=== PATIENT | male | born 1985 | race Two or more races ===

== ENCOUNTER → 2020-03-16 08:47 | Outpatient (BNVA) | payer OTHER, SELFPAY | PROVIDERS: PCP Nurse Practitioner Family; Visit Provider Urology | DX: F41.8 Other specified anxiety disorders (principal); Z30.09 Encounter for other general counseling and advice on contraception | CPT/HCPCS: 99202 ==

== ENCOUNTER → 2020-04-29 10:46 | Outpatient (BNVA) | payer OTHER, SELFPAY | PROVIDERS: PCP Nurse Practitioner Family; Visit Provider Urology | DX: F41.8 Other specified anxiety disorders (principal) | CPT/HCPCS: 55250 ==

== ENCOUNTER → 2020-07-26 08:45 | Outpatient (BNVA) | payer OTHER, SELFPAY | PROVIDERS: PCP Nurse Practitioner Family; Visit Provider Urology | DX: F41.8 Other specified anxiety disorders (principal) | CPT/HCPCS: 99212 ==

== ENCOUNTER 2023-11-29 09:33 | Outpatient (AMB) | payer SELFPAY ==
--- NOTE | 2023-11-29 09:54 | MHC.OFFWIV ---
Intake Vital Signs 11/29/23 09:55 Height 5 ft 5 in Weight 169 lb BMI 28.1 BP 128/80 Blood Pressure Location Lt brachial Position Sitting Pulse 97 Pulse Source Pulse Oximeter Temp 97.7 F Temp Source Oral Pulse Oximetry (%) 97 Oxygen Delivery Method Room Air Intake Visit Reasons: EP Asthma, SOB and Chest tightness Intake Note: Patient here for cough, SOB, chest tightness and nasal congestion which has been present for about 2 weeks. Pt states he has a hx of asthma and was put on allergy meds, Cough, and prednisone which is not helping. Patient Tobacco Use Status: Current everyday Tobacco user Allergies shellfish derived Allergy (Severe, Verified 11/29/23 09:56) unknown Do you need a note to return to daycare/school/sports/work: Yes HPI HPI Comments History of Present Illness Details Patient is a 38-year-old male with a past medical history of asthma complaining of 2 weeks of shortness of breath, dry cough, chest tightness, sinus pain and nasal congestion. He tells me he went to an emergency department on Saturday because he was very short of breath, they gave him a prednisone taper which she has been taking and does not seem to be helping. They also gave him some pseudoephedrine which he has been taking and also does not seem to be helping. He tells me he has an albuterol inhaler and nebulizer solution that he has been using, last time he used the nebulizer was yesterday. He denies any fevers, headaches or ear pain. [facility] Medical History Back muscle spasm Depression with anxiety GERD (gastroesophageal reflux disease) Surgical History History of mandibular surgery Hx of tonsillectomy Family History (Updated 09/06/21 @ 11:25 by Betty Hahn [facility]) Father Heart attack Mother Lung disease Maternal Grandmother Diabetes History of multiple strokes Social History Housing: Condominium Alcohol intake: current Patient Tobacco Use Status: Current everyday Tobacco user Cigarettes Per Day: 4 e-Cigarette/Vaping Use: Never Used Second Hand Smoke Exposure: No service: No Current occupational status: employed Current occupation: [employer] Current occupational exposures/hazards: Yes Cognitive needs: No Hearing needs: No Vision needs: No Review of Systems Const All systems reviewed & are unremarkable except as noted in HPI and below Physical Exam Vital Signs: Last Vital Signs Temp 97.7 F 11/29/23 09:55 Pulse 97 11/29/23 09:55 BP 128/80 11/29/23 09:55 Pulse Ox 97 11/29/23 09:55 Oxygen Delivery Method Room Air 11/29/23 09:55 BMI result Body Mass Index 28.1 Const General: cooperative, healthy appearing, comfortable and no acute distress Orientation/consciousness: patient oriented x3 Limitations: no limitations HEENT Head: Yes normal to inspection Ears: hearing grossly normal bilaterally, external ears normal and TM's normal bilaterally General nose exam: Normal external nose present, Normal nares present and No nasal discharge present Face and sinus: Yes normal facial exam and Yes sinus tenderness (maxillary bilateral) Mouth: Normal oral and palatal mucosa present and moist mucous membranes Throat: Yes tonsils normal, Yes uvula midline and Yes posterior oropharynx abnormal (Erythema) Eyes General: appearance normal, both eyes and all related structures Neck Neck: Yes normal visual inspection Resp Effort & Inspection: normal respiratory effort, able to speak in complete sentences, Actively coughing Quality: dry, no respiratory distress, not tachypneic, no tripod positioning and no use of accessory muscles Auscultation: clear to auscultation bilaterally and diminished lung sounds (Slightly dim) bilateral throughout Cardio Rate: regular rate Rhythm: regular rhythm Heart sounds: normal S1 and S2 Skin General skin exam: no rashes or lesions noted Neuro General: patient oriented x3 Extrem General: Yes normal to inspection and Yes no clubbing, cyanosis or edema Assessment & Plan Assessment & Plan (1) Shortness of breath: Code(s): R06.02 - Shortness of breath Plan: Vital signs are stable, patient is well-appearing but a little bit short of breath when he speaks, lungs are a little bit dim so I will get a chest x-ray. We also did give a DuoNeb nebulizer treatment in the office which brought him relief so I will send some to his pharmacy. Will also give Augmentin as it has been 2 weeks and this could be bacterial. Plan see above Orders: Orders AMB Nebulizer Treatment Today R06.02 - Shortness of breath XR chest 2V Today R05.9 - Cough, unspecified Medications: New amoxicillin-pot clavulanate 875-125 mg 1 tab PO Q12H 10 tabs 0RF ipratropium-albuterol 0.5 mg-3 mg(2.5 mg base)/3 mL 3 mL inhalation Q6-8H PRN 90 mL 0RF wheezing ipratropium-albuterol 0.5 mg-3 mg(2.5 mg base)/3 mL 3 mL inhalation ONCE 3 mL 0RF shortness of breath R06.02 - Shortness of breath Coding Level of Care Code Est Pt Level 4 (41957) Diagnoses Shortness of breath R06.02
[2023-11-29 09:55] VITALS: BP 128/80; PULSE 97; TEMP 36.5; O2SAT 97; BMI 28.1
== END 2023-11-29 11:02 | disposition home or self-care (01) ==
PROVIDERS: PCP Nurse Practitioner Family; Visit Provider Physician Assistant
DX: R06.02 Shortness of breath (principal)

== ENCOUNTER → 2023-11-29 09:33 | Outpatient (BNVA) | payer OTHER, SELFPAY | PROVIDERS: PCP Nurse Practitioner Family ==

== ENCOUNTER 2023-11-29 10:31 | Outpatient (REF) | payer MEDICAID, SELFPAY ==
--- NOTE | ~2023-11-29 | XR_ITS ---
EXAMINATION: XR CHEST CLINICAL INFORMATION: Cough, unspecified COMPARISON: None available. TECHNIQUE: PA and lateral views of the chest were obtained. FINDINGS: The lungs are well expanded. No focal consolidation, effusion, edema, or pneumothorax. The cardiomediastinal silhouette is within normal limits for technique. No acute osseous abnormality. XR/XR chest 2V IMPRESSION: No evidence of acute pulmonary disease. Electronically signed by: Audra Bundy DO 11/29/2023 11:35 AM EDT
== END 2023-11-29 10:32 | disposition home or self-care (01) ==
LOC: HO.HMGCX 10:31
PROVIDERS: PCP Nurse Practitioner Family; Visit Provider Physician Assistant
DX: R05.9 Cough, unspecified (principal)
CPT/HCPCS: 71046; 94640; 99212

== ENCOUNTER 2023-12-04 12:55 | Outpatient (AMB) | payer OTHER, SELFPAY ==
--- NOTE | 2023-12-04 12:57 | A.OFFPC_ITS ---
Vital Signs 12/04/23 12:58 Height 5 ft 5 in Weight 167 lb BMI 27.8 BP 104/70 Blood Pressure Location Lt brachial Position Sitting Pulse 90 Pulse Source Pulse Oximeter Pulse Oximetry (%) 96 Oxygen Delivery Method Room Air Intake Visit Reasons: Annual PE/last seen 2021/FMLA Intake Note: Pt is here today for his PE/ FMLA paperwork Allergies shellfish derived Allergy (Severe, Verified 12/04/23 17:04) unknown peas Adverse Reaction (Uncoded 12/04/23 17:04) Anaphylaxis Medication List - Last Reconciled 12/04/23 by Deep Hebert, [facility] albuterol sulfate 2.5 mg (3 mL) inhalation Q6H PRN albuterol sulfate 90 mcg/actuation 2 puffs inhalation Q6H PRN 30 days albuterol sulfate 90 mcg/actuation (Ventolin HFA) 2 puffs inhalation Q6H PRN amitriptyline 10 mg PO BEDTIME 30 days budesonide-formoterol 160-4.5 mcg/actuation (Symbicort) 1 puff inhalation BID ipratropium-albuterol 0.5 mg-3 mg(2.5 mg base)/3 mL 3 mL inhalation Q6-8H PRN montelukast 10 mg PO BEDTIME nebulizer accessories As directed nebulizers q6 hrs prn omeprazole 20 mg PO DAILY Tobacco use date assessed: 12/04/23 Dental Screening Dental Screen Date: 12/04/23 Did you have a dental visit in the last 12 months?: No Did you have a dental problem in the last 6 months where you did not have access to dental care?: No Was dental information given to patient?: No HPI Annual PE/last seen 2021/FMLA HPI Details Pt is here for a PE. Will order labs. Pt has a hx of asthma. He reports waking up very short of breath with a cough. Pt uses a nebulizer which helps. He is using albuterol prn. Will order PFT testing. Will send symbicort. Pt knows to rinse his mouth out after use. Will also start montelukast. Will refer to pulmonology. Pt wakes up at night gasping for air. ? sleep apnea vs asthma trigger related to GERD. Will send omeprazole, Will refer for sleep study. [place] paperwork filled out for pt. Pt knows to go to the ER with any worsening symptoms. NOTE: pt does smoke cigarettes [facility] Medical History Depression with anxiety GERD (gastroesophageal reflux disease) Back muscle spasm Surgical History History of mandibular surgery Hx of tonsillectomy Family History Father Heart attack Mother Lung disease Maternal Grandmother Diabetes History of multiple strokes Social History Housing: Condominium Alcohol intake: current Patient Tobacco Use Status: Current everyday Tobacco user Cigarettes Per Day: 4 e-Cigarette/Vaping Use: Never Used Second Hand Smoke Exposure: No service: No Current occupational status: employed Current occupation: [employer] Current occupational exposures/hazards: Yes Cognitive needs: No Hearing needs: No Vision needs: No Questionnaire PHQ-9 Over the last 2 weeks, how often have you been bothered by any of the following problems? 1. Little interest or pleasure in doing things: not at all 2. Feeling down, depressed, or hopeless: not at all 3. Trouble falling or staying asleep, or sleeping too much: nearly every day 4. Feeling tired or having little energy: not at all 5. Poor appetite or overeating: more than half the days 6. Feeling bad about yourself - or that you are a failure or have let yourself or your family down: not at all 7. Trouble concentrating on things, such as reading the newspaper or watching television: not at all 8. Moving or speaking so slowly that other people could have noticed. Or the opposite - being so fidgety or restless that you have been moving around a lot more than usual: not at all 9. Thoughts that you would be better off or of hurting yourself in some way: not at all Total score: 5 Depression Screening Interpretation: Negative Depression Screening Done: Yes 65725 - PHQ-9 Billing: Yes Source: Developed by Drs. Matt Cook, Pema B.Rory Cohn and colleagues, with an educational yvette from [employer]. Thrive Questionnaire Date Thrive assessed: 12/04/23 I am a: Patient What is your living situation today?: I have a steady place to live Within the past 12 months, did the food you bought not last and you didn't have the money to get more?: Sometimes True Within the past 12 months, did you worry whether your food would run out before you got money to buy more?: Sometimes True Do you have trouble paying for medicines?: Yes Do you have trouble getting transportation to medical appointments?: No Do you have trouble paying your heating and electricity bill?: Yes Do you have trouble taking care of your child, family member or friend?: No Do you have trouble with day-to-day activities such as bathing, preparing meals, shopping, managing finances, etc.?: No Are you interested in more education?: Yes Please select the resources that you would like help with: Food, Utilities, Job search/training and Education Currently or been in a relationship where the following occur: No concerns reported THRIVE Score: 3 AUDIT C Alcohol Use Questionnaire (AUDIT-C) 1. How often do you have a drink containing alcohol?: 2-3 times a week 2. How many drinks containing alcohol do you have on a typical day when you are drinking?: 5 or 6 3. How often do you have six or more drinks on one occasion?: Weekly Total Score: 8 Score Reviewed/Action Taken: Yes MEGAN-7 AMB Questionnaire MEGAN-7 Date MEGAN - 7 assessed: 12/04/23 Feeling nervous, anxious, or on edge: 0 = Not at all Not being able to stop or control worryin = Not at all Worrying too much about different things: 0 = Not at all Trouble relaxin = Not at all Being so restless that it is hard to sit still: 0 = Not at all Becoming easily annoyed or irritable: 0 = Not at all Feeling afraid as if something awful might happen: 0 = Not at all Total MEGAN-7 score (0-4 normal; 5-9 mild; 10-14 moderate; 15-21 severe): 0 Source: Developed by Drs. Matt Cook, Rory Harris and colleagues, with an educational yvette from [employer]. Review of Systems Const Denies chills and Denies fever(s) Eyes Denies blurry vision ENT Denies vertigo, Denies dizziness and Denies sore throat Card Denies chest pain at rest, Denies chest pain with activity, Denies diaphoresis, Denies dyspnea and Denies dyspnea on exertion Resp Denies cough, Denies dyspnea, Denies dyspnea on exertion and Denies wheezing GI Denies abdominal pain, Denies melena, Denies hematochezia, Denies constipation, Denies diarrhea and Denies loose stools Denies hematuria Musc Denies numbness and Denies tingling Skin/Breast Denies lesions Neuro Denies vertigo, Denies dizziness, Denies numbness and Denies tingling Psych Denies anxiety, Denies depression, Denies homicidal ideation, Denies suicidal ideation and Denies other (substance abuse) Aller/Immun Denies wheezing Physical exam (Primary Care) Vital Signs: Last Vital Signs Pulse 90 12/04/23 12:58 BP 104/70 12/04/23 12:58 Pulse Ox 96 12/04/23 12:58 Oxygen Delivery Method Room Air 12/04/23 12:58 BMI result Body Mass Index 27.8 Tobacco/Smoking Status: Tobacco use Status Tobacco use date assessed 12/04/23 12/04/23 13:04 Patient Tobacco Use Status Current everyday Tobacco 12/04/23 13:00 e-Cigarette/Vaping Use Never Used 12/04/23 13:00 PHQ-9: PHQ-9 Score PHQ-9: Total score 5 12/04/23 13:24 Depression Screening Interpretation: Negative Thrive Assessment: Date of Thrive Assessment Date Thrive assessed 12/04/23 12/04/23 13:04 Currently or been in a relationship where the following occur: No concerns reported Const Other: communicating without difficulty General: cooperative Nutritional Appearance: well nourished Orientation/consciousness: patient oriented x3 HENMT Head: Yes normal to inspection, Yes normocephalic and Yes atraumatic Ears: TM's normal bilaterally Eyes General: appearance normal, both eyes and all related structures Alignment and Position: alignment normal and position normal Neck Neck: Yes normal visual inspection, Yes no lymphadenopathy and Yes supple Resp Other: lungs diminished bilat, faint tight wheezes Effort & Inspection: normal respiratory effort and Actively coughing Cardio Rate: regular rate Rhythm: regular rhythm Heart sounds: S1 normal heart sound present, S2 normal heart sound present and no murmurs GI Palpation (GI): Soft to palpation and nontender Auscultation: normal bowel sounds Male General Exam: Yes normal external exam Penis: normal penis Scrotum: scrotum normal, testes descended bilaterally and no inguinal hernias Testes: no testicular mass Skin Rashes: no rashes Neuro General: patient oriented x3, moves all extremities, no focal motor deficits and deep tendon reflexes 2+ bilaterally Romberg Test: Negative Extrem Right lower extremity: no edema Left lower extremity: no edema Psych Appearance: grossly normal Mental Status: mental status grossly normal Speech and movement: Normal speech and movement present Affect: normal affect Attitude: cooperative Thought process: Normal thought process present Thought content: Normal thought content present Insight: Good insight present (Psych) Judgement: Good judgement present (Psych) Coding Level of Care Code Est Pt Prev Care 18-39y(62907) Diagnoses History of asthma Z87.09 Shortness of breath R06.02 Assessment & Plan Assessment & Plan (1) History of asthma: Code(s): Z87.09 - Personal history of other diseases of the respiratory system Category: Medical Plan: PFT testing ordered, sending symbicort and montelukast, referred to pulmonology (2) Shortness of breath: Code(s): R06.02 - Shortness of breath Category: Medical Plan: PFT testing ordered, sending symbicort and montelukast, referred to pulmonology, referred for sleep study, pt knows to go to the ER wit worsening symptoms Plan The patient agreed to the use of a medical laboratory technician for this encounter. Scribed for ZIA Del Cid by Shayla Cleveland medical laboratory technician, on 12/04/2023 at 13:20 EST. Orders: Orders PFT pulmonary function test Today Z87.09 - Personal history of other diseases of the respiratory system Referrals Pulmonology Referral R06.02 - Shortness of breath, Z87.09 - Personal history of other diseases of the respiratory system Sleep Medicine Referral R06.02 - Shortness of breath, Z87.09 - Personal history of other diseases of the respiratory system Medications: New montelukast 10 mg PO BEDTIME 90 tabs 0RF prednisone 50 mg PO DAILY 6 days 6 tabs 0RF budesonide-formoterol 160-4.5 mcg/actuation (Symbicort) 1 puff inhalation BID 10.2 grams 2RF Refilled omeprazole 20 mg PO DAILY 90 caps 0RF K21.9 - Gastro-esophageal reflux disease without esophagitis
[2023-12-04 12:58] VITALS: BP 104/70; PULSE 90; O2SAT 96; BMI 27.8
== END 2023-12-04 14:36 | disposition home or self-care (01) ==
PROVIDERS: PCP Nurse Practitioner Family; Visit Provider Nurse Practitioner Family
DX: Z00.00 Encounter for general adult medical examination without abnormal findings (principal); Z87.09 Personal history of other diseases of the respiratory system; R06.02 Shortness of breath

== ENCOUNTER → 2023-12-04 12:55 | Outpatient (BNVA) | payer OTHER, SELFPAY | PROVIDERS: PCP Nurse Practitioner Family; Visit Provider Nurse Practitioner Family | DX: Z00.01 Encounter for general adult medical examination with abnormal findings (principal); R06.02 Shortness of breath; K21.9 Gastro-esophageal reflux disease without esophagitis; Z79.899 Other long term (current) drug therapy; Z79.52 Long term (current) use of systemic steroids; Z87.09 Personal history of other diseases of the respiratory system | CPT/HCPCS: 96127; 99395 ==

== ENCOUNTER 2023-12-27 10:47 | Outpatient (AMB) | payer OTHER, SELFPAY ==
--- NOTE | 2023-12-27 10:59 | AM.OFFWIN_ITS ---
Intake Vital Signs 12/27/23 11:00 Weight 166 lb BP 140/100 H Pulse 100 Pulse Source Pulse Oximeter Pulse Oximetry (%) 98 Oxygen Delivery Method Room Air Intake Visit Reasons: EP-chest pain, sob, Intake Note: Patient here for very bad chest pain since this morning, hurts when he brings his arms up, takes a deep breathe Patient Tobacco Use Status: Current everyday Tobacco user Allergies shellfish derived Allergy (Severe, Verified 12/27/23 11:02) unknown peas Adverse Reaction (Uncoded 12/27/23 11:02) Anaphylaxis Do you need a note to return to daycare/school/sports/work: Yes HPI HPI Comments History of Present Illness Details Patient is a 38-year-old male who tells me he woke up at 03:00 o'clock in the morning with sudden onset of central chest pain that radiates to his back and to both shoulders. He states this pain is worse with movement. He denies any episodes of sweating or nausea or vomiting. He said he has gets dizzy every now and then. He tells me if he pushes on his chest it does not reproduce the pain. He tells me this has never happened to him before. [facility] Medical History Depression with anxiety GERD (gastroesophageal reflux disease) Back muscle spasm Surgical History History of mandibular surgery Hx of tonsillectomy Family History Father Heart attack Mother Lung disease Maternal Grandmother Diabetes History of multiple strokes Social History Housing: Condominium Alcohol intake: current Patient Tobacco Use Status: Current everyday Tobacco user Cigarettes Per Day: 4 e-Cigarette/Vaping Use: Never Used Second Hand Smoke Exposure: No service: No Current occupational status: employed Current occupation: [employer] Current occupational exposures/hazards: Yes Cognitive needs: No Hearing needs: No Vision needs: No Review of Systems Const All systems reviewed & are unremarkable except as noted in HPI and below Physical Exam Vital Signs: Last Vital Signs Pulse 100 12/27/23 11:00 BP 140/100 H 12/27/23 11:00 Pulse Ox 98 12/27/23 11:00 Oxygen Delivery Method Room Air 12/27/23 11:00 Const General: cooperative, healthy appearing, comfortable, no acute distress and well developed Orientation/consciousness: patient oriented x3 Limitations: no limitations HEENT Head: Yes normal to inspection Ears: hearing grossly normal bilaterally General nose exam: Normal external nose present Face and sinus: Yes normal facial exam Eyes General: appearance normal, both eyes and all related structures Neck Neck: Yes normal visual inspection and Yes full ROM Resp Effort & Inspection: abnormal respiratory pattern (splinting ) and respiratory distress (mild) Auscultation: clear to auscultation bilaterally and diminished lung sounds Cardio Rate: regular rate Rhythm: regular rhythm Heart sounds: normal S1 and S2 Skin General skin exam: no rashes or lesions noted Neuro General: patient oriented x3 Extrem General: Yes normal to inspection Office Procedures EKG Details: NSR , no acute ST or T-wave changes [id number], Complete Assessment & Plan Assessment & Plan (1) Chest pain: Code(s): R07.9 - Chest pain, unspecified Qualifiers: Chest pain type: chest pain on breathing Qualified Code(s): R07.1 - Chest pain on breathing Plan: EKG is normal sinus rhythm with no acute ST or T-wave changes. We did get a chest x-ray which my read showed no pneumothorax or consolidation. Patient is splinting his breathing and visibly short of breath. Sent to the emergency department, patient is opting to go to [facility] in [place]. Called [facility] with expect. (2) Shortness of breath: Code(s): R06.02 - Shortness of breath Plan: see above Plan see above Orders: Orders XR chest 2V Today R05.9 - Cough, unspecified Coding Level of Care Code Est Pt Level 5 (98224) Diagnoses Chest pain on breathing R07.1 Chest pain type: chest pain on breathing Shortness of breath R06.02 CPT Codes EKG - CPT: 36780-[id number], Complete ([id number])
[2023-12-27 11:00] VITALS: BP 140/100; PULSE 100; O2SAT 98
== END 2023-12-27 11:56 | disposition home or self-care (01) ==
PROVIDERS: PCP Nurse Practitioner Family; Visit Provider Physician Assistant
DX: R07.1 Chest pain on breathing (principal); R06.02 Shortness of breath

== ENCOUNTER 2023-12-27 10:47 | Outpatient (REF) | payer OTHER, SELFPAY ==
--- NOTE | ~2023-12-27 | XR_ITS ---
EXAMINATION: XR CHEST CLINICAL INFORMATION: Cough. COMPARISON: Chest radiograph dated 11/29/2023. TECHNIQUE: 2 views of the chest were obtained. FINDINGS: The lungs are clear. The cardiomediastinal silhouette is normal in size. There is no pleural effusion or pneumothorax. No acute osseous abnormality. XR/XR chest 2V IMPRESSION: No acute cardiopulmonary findings. Electronically signed by: Marek Davis MD 12/27/2023 03:48 PM EDT
== END 2023-12-27 10:48 | disposition home or self-care (01) ==
LOC: HO.HMGCX 10:47
PROVIDERS: PCP Nurse Practitioner Family; Visit Provider Physician Assistant
DX: R07.1 Chest pain on breathing (principal); R06.02 Shortness of breath; R05.9 Cough, unspecified; F17.210 Nicotine dependence, cigarettes, uncomplicated
CPT/HCPCS: 71046; 93005; 99212

== ENCOUNTER 2024-01-13 13:07 | Outpatient (AMB) | payer OTHER, SELFPAY ==
--- NOTE | 2024-01-13 14:23 | MHC.OFFWIV ---
Intake Vital Signs 01/13/24 14:28 Weight 166 lb BP 132/80 Blood Pressure Location Lt brachial Position Sitting Pulse 97 Pulse Source Pulse Oximeter Pulse Oximetry (%) 96 Oxygen Delivery Method Room Air Intake Visit Reasons: EP cough, asthma [phone] Intake Note: Patient here for cough that has been present for about 3 weeks now. Patient Tobacco Use Status: Current everyday Tobacco user Allergies shellfish derived Allergy (Severe, Verified 01/13/24 14:26) unknown peas Adverse Reaction (Uncoded 01/13/24 14:26) Anaphylaxis Do you need a note to return to daycare/school/sports/work: No HPI HPI Comments History of Present Illness Details Patient is a 38-year-old male complaining of 3 weeks of a persistent dry cough. He came to this clinic 3 weeks ago and was sent to the emergency department where they diagnosed him with pericarditis, he states he was given colchicine prednisone and Tessalon Perles. He states all the medications worked very well while he was taking them however, as soon as he went off medications, his cough came back and has been persistent ever since. He states he does take his Symbicort twice daily and he is using his DuoNeb nebulizer once he gets home from work, consistently as well as his albuterol inhaler. He states he is using the albuterol inhaler and the DuoNebs more frequently than typical. He tells me he is still smoking cigarettes. He denies any head congestion, sinus pain, ear pain or fevers. [facility] Medical History Depression with anxiety GERD (gastroesophageal reflux disease) Back muscle spasm Surgical History History of mandibular surgery Hx of tonsillectomy Family History Father Heart attack Mother Lung disease Maternal Grandmother Diabetes History of multiple strokes Social History Housing: Condominium Alcohol intake: current Patient Tobacco Use Status: Current everyday Tobacco user Cigarettes Per Day: 4 e-Cigarette/Vaping Use: Never Used Second Hand Smoke Exposure: No service: No Current occupational status: employed Current occupation: [employer] Current occupational exposures/hazards: Yes Cognitive needs: No Hearing needs: No Vision needs: No Review of Systems Const All systems reviewed & are unremarkable except as noted in HPI and below Physical Exam Vital Signs: Last Vital Signs Pulse 97 01/13/24 14:28 BP 132/80 01/13/24 14:28 Pulse Ox 96 01/13/24 14:28 Oxygen Delivery Method Room Air 01/13/24 14:28 Const General: cooperative, healthy appearing, comfortable, no acute distress and well developed Orientation/consciousness: patient oriented x3 Limitations: no limitations HEENT Head: Yes normal to inspection Ears: hearing grossly normal bilaterally General nose exam: Normal external nose present Face and sinus: Yes normal facial exam Eyes General: appearance normal, both eyes and all related structures Neck Neck: Yes normal visual inspection and Yes full ROM Resp Effort & Inspection: normal respiratory effort, not able to speak in complete sentences (Speaking in short sentences, coughing consistently), Actively coughing Quality: actively coughing, no grunting, not labored, no nasal flaring, no pursed lip breathing, no respiratory distress, not tachypneic and no tripod positioning Auscultation: wheezes scattered wheezes and throughout and diminished lung sounds diffuse Cardio Rate: regular rate Rhythm: regular rhythm Heart sounds: normal S1 and S2 Skin General skin exam: no rashes or lesions noted Neuro General: patient oriented x3 Extrem General: Yes normal to inspection Assessment & Plan Assessment & Plan (1) Persistent shortness of breath after severe acute respiratory syndrome coronavirus 2 (SARS-CoV-2) infection: Code(s): R06.02 - Shortness of breath; U09.9 - Post COVID-19 condition, unspecified Plan: Called pulmonology, able to get patient scheduled for SaturdayJanuary 16 at 13:30 in the [place] office with the nurse practitioner. Gave the patient this information and he states that he will be at the appointment. In the meanwhile, I will put him on a 10 day prednisone taper (2) Asthma exacerbation: Code(s): J45.901 - Unspecified asthma with (acute) exacerbation Qualifiers: Asthma severity: mild Asthma persistence: persistent Qualified Code(s): J45.31 - Mild persistent asthma with (acute) exacerbation Plan: Vital signs are stable, patient consistently coughing during the exam, his lung sounds were tight and slightly wheezy. Prednisone taper sent to pharmacy Plan See above Medications: New prednisone On days 1-3, take 3 tablets with breakfast. On days 4-6 take 2 tablets with breakfast, on days 7-10 take 1 tablet with breakfast 20 mg PO daily 19 tabs 0RF benzonatate 200 mg PO TID PRN 14 caps 0RF cough Coding Level of Care Code Est Pt Level 4 (46903) Diagnoses Persistent shortness of breath after severe acute respiratory syndrome coronavirus 2 (SARS-CoV-2) infection R06.02; U09.9 Mild persistent asthma with exacerbation J45.31 Asthma severity: mild Asthma persistence: persistent
[2024-01-13 14:28] VITALS: BP 132/80; PULSE 97; O2SAT 96
== END 2024-01-13 14:56 | disposition home or self-care (01) ==
PROVIDERS: PCP Nurse Practitioner Family; Visit Provider Physician Assistant
DX: R06.02 Shortness of breath (principal); U09.9 Post COVID-19 condition, unspecified; J45.31 Mild persistent asthma with (acute) exacerbation

== ENCOUNTER → 2024-01-13 13:07 | Outpatient (BNVA) | payer OTHER, SELFPAY | PROVIDERS: PCP Nurse Practitioner Family; Visit Provider Physician Assistant | DX: R06.02 Shortness of breath (principal); U09.9 Post COVID-19 condition, unspecified; J45.31 Mild persistent asthma with (acute) exacerbation | CPT/HCPCS: 99212 ==

== ENCOUNTER 2024-01-17 | Outpatient (REF) | payer OTHER, SELFPAY | END 2024-01-17 00:01 | disposition home or self-care (01) | LOC: HO.RESP | PROVIDERS: PCP Nurse Practitioner Family; Visit Provider Nurse Practitioner Family | DX: J45.909 Unspecified asthma, uncomplicated (principal); R05.9 Cough, unspecified; Z91.09 Other allergy status, other than to drugs and biological substances | CPT/HCPCS: 94640; 99202 ==

== ENCOUNTER 2024-01-17 13:19 | Outpatient (AMB) | payer OTHER, SELFPAY ==
[2024-01-17 13:20] VITALS: BP 120/84; PULSE 93; O2SAT 97; BMI 28.3
--- NOTE | 2024-01-17 13:20 | MHC.OFFVIS ---
Vital Signs 01/17/24 13:20 Height 5 ft 5 in Weight 170 lb 4 oz BMI 28.3 BP 120/84 Blood Pressure Location Lt brachial Position Sitting Pulse 93 Pulse Source Pulse Oximeter Pulse Oximetry (%) 97 Oxygen Delivery Method Room Air Intake Visit Reasons: Shortness of breath Allergies Peanut Butter Allergy (Severe, Verified 01/17/24 13:26) Swelling shellfish derived Allergy (Severe, Verified 01/17/24 13:25) unknown peas Adverse Reaction (Uncoded 01/17/24 13:25) Anaphylaxis HPI HPI Shortness of breath: Details: Nii is a pleasant 38 year old male, current smoker, with 10pyh with underlying asthma and GERD. He was referred by PCP for pulmonary evaluation. He reports worsening control of asthma since mid October with persistent dry cough, wheezing, dyspnea and chest tightness. He was initially improving after doxycyline and prednisone however symptoms recurred once completing. He is currently on 60 mg of prednisone with persistent cough. Denies fevers or chills. He notes cough is worse with heat and prolonged talking. Symptoms improve with cool air. He was recently prescribed Symbicort and using albuterol MDI frequently. He was evaluated at the ED on two separate occasions, with question of pericarditis due to abnormalities on EKG, discharged with NSAIDS. At this time, CXR revealed perihilar opacities however repeat CXR and CT chest unremarkable. Respiratory panel unremarkable. He endorses seasonal allergies, no recent allergy testing and not using a daily anthistamine. In September he acquired two chickens, which live in his basement. He reports asthma diagnosed as a child, hospitalized on multiple occasions never requiring intubations. He reports reflux however controlled on current regimen. 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 [facility] Medical History Depression with anxiety GERD (gastroesophageal reflux disease) Back muscle spasm Surgical History History of mandibular surgery Hx of tonsillectomy Family History Father Heart attack Mother Lung disease Maternal Grandmother Diabetes History of multiple strokes Social History (Updated 01/17/24 @ 13:24 by Betty Hahn CMA) [facility] Alcohol intake: current Patient Tobacco Use Status: Current everyday Tobacco user Cigarettes Per Day: 7 e-Cigarette/Vaping Use: Never Used Second Hand Smoke Exposure: No service: No Current occupational status: employed Current occupation: [employer] Current occupational exposures/hazards: Yes Cognitive needs: No Hearing needs: No Vision needs: No Review of Systems Const Denies chills, Denies excessive sweating, Denies fever(s), Denies headache(s) and Denies night sweats Eyes Denies dry eyes, Denies irritation and Denies itchy eyes ENT Reports Normal hearing present, Denies headache(s), Denies nasal congestion, Denies nasal discharge, Denies post nasal drip and Denies sore throat Card Denies chest pain, Denies chest pain at rest, Denies chest pain with activity, Denies claudication, Denies leg edema, Denies orthopnea and Denies paroxysmal nocturnal dyspnea Resp Denies chest congestion, Denies excessive phlegm production, Denies pain on inspiration, Denies pain with cough and Denies stridor Musc Denies myalgias Neuro Reports Normal hearing present and Denies headache(s) Endo Denies excessive sweating Tom/Lymph Denies lymphadenopathy Aller/Immun Denies itchy eyes and Denies seasonal rhinorrhea Physical Exam Vital Signs: Last Vital Signs Pulse 93 01/17/24 13:20 BP 120/84 01/17/24 13:20 Pulse Ox 97 01/17/24 13:20 Oxygen Delivery Method Room Air 01/17/24 13:20 BMI result Body Mass Index 28.3 Const General: cooperative, healthy appearing, no acute distress, well developed and alert Orientation/consciousness: patient oriented x3 Limitations: no limitations HEENT Head: Yes normal to inspection, Yes normocephalic and Yes atraumatic Ears: hearing grossly normal bilaterally and external ears normal Eyes General: appearance normal, both eyes and all related structures Eyelids: Yes eyelids normal Sclerae: sclerae normal EOM: EOMs intact bilaterally Neck Neck: Yes normal visual inspection and Yes no lymphadenopathy Lymphatic: no lymphadenopathy noted Chest Chest palpation & inspection: normal inspection of the chest Resp Other: persistent dry cough throughout visit, mildly improved with DuoNeb Effort & Inspection: normal respiratory effort, able to speak in complete sentences, no audible wheezes, no stridor, not tachypneic, no tripod positioning and no use of accessory muscles Auscultation: clear to auscultation bilaterally Cardio Jugular venous distension: no JVD Rate: regular rate Rhythm: regular rhythm Skin Other: warm, dry General skin exam: no rashes or lesions noted Neuro General: patient oriented x3 Cranial nerves: Yes Normal hearing present Cognition (Neuro): normal cognition Gait exam (Neuro): Normal gait present Extrem General: Yes normal to inspection, Yes capillary refill normal, Yes no clubbing, cyanosis or edema and Yes no pedal edema Psych Appearance: grossly normal and well kempt Speech and movement: Normal speech and movement present and Clear speech present Affect: normal affect Attitude: cooperative Thought process: Normal thought process present Thought content: Normal thought content present Insight: Good insight present (Psych) Judgement: Good judgement present (Psych) Office Procedures Nebulizer Treatment Nebulizer Treatment 09817-[id number]/MDI RX initial, or Nebulizer Subsequent Treatment Office Meds ipratropium 0.5 mg-albuterol 3 mg (2.5 mg base)/3 mL nebulization soln Performing Provider: Felicity Carlson NP Performing Location: [facility] [place] [facility] Administered by: Chrissie Nielson LPN on 01/17/24 13:57 Dose Route Admin Location Dispensed Lot Number Expiration Date [facility] [employer] 3 mL inhalation 3 mL [id number] 05/25/25 13298-861-87 [employer] Results Reviewed Results Reviewed: Assessment & Plan Assessment & Plan (1) Asthma: Code(s): J45.909 - Unspecified asthma, uncomplicated Category: Medical (2) Cough: Code(s): R05.9 - Cough, unspecified Category: Medical (3) Environmental allergies: Code(s): Z91.09 - Other allergy status, other than to drugs and biological substances Category: Medical Plan Nii presents for pulmonary evaluation for persistent dry cough and worsening asthma control despite prednisone 60 mg, symbicort and albuterol MDI/neb. Will treat with azithromycin and add singulair as patient with significant eosinophils on prior evaluation through ED. Will send for RAST today and once symptoms are better controlled will send for PFT, as he would not be able to complete at this time. Will also attempt to obtain prior CT chest images. All questions were answered and patient is in agreement of plan. Will follow up in 2-4 weeks or sooner if needed. Orders: Orders AMB Nebulizer Treatment 01/17/24 J45.909 - Unspecified asthma, uncomplicated Hypersensitive Pneumonitis Prf 01/17/24 R05.9 - Cough, unspecified Resp Allergy Profile Region I 01/17/24 Z91.09 - Other allergy status, other than to drugs and biological substances Immunoglobulin E 01/17/24 Z91.09 - Other allergy status, other than to drugs and biological substances Other Ref Test - Misc 01/17/24 Z91.09 - Other allergy status, other than to drugs and biological substances Medications: New montelukast (Singulair) 10 mg PO BEDTIME 30 tabs 3RF azithromycin For 250 mg dose pack: take 500 mg today (day 1), then 250 mg for 4 days (days 2-5) PO 6 tabs 0RF Coding Level of Care Code New Pt Level 4 (90023) Diagnoses Asthma J45.909 Cough R05.9 Environmental allergies Z91.09 CPT Codes Nebulizer Treatment - Nebulizer Treatment, initial or subsequent: [id number]/MDI RX initial, or Nebulizer Subsequent Treatment ([id number])
== END 2024-01-17 14:17 | disposition home or self-care (01) ==
PROVIDERS: PCP Nurse Practitioner Family; Referring Provider Nurse Practitioner Family; Visit Provider Nurse Practitioner Family
DX: J45.909 Unspecified asthma, uncomplicated (principal); R05.9 Cough, unspecified; Z91.09 Other allergy status, other than to drugs and biological substances
CPT/HCPCS: 99204

== ENCOUNTER 2024-01-17 14:23 | Outpatient (REF) | payer OTHER, SELFPAY ==
[2024-01-22 17:32] LABS: Class Alternaria alternata 1; Class Aspergillus fumigatus 0/1; Class Bermuda Grass 3; Class Birch 6; Class Cat Dander 0/1; Class Cladosporium herbarum 0/1; Class Cockroach 3; Class Common Ragweed 6; Class Cottonwood 4; Class Derm. pterony 1; Class Dermatophagoides farinae 1; Class Dog Dander 1; Class Elm 4; Class Maple Box Elder 3; Class Mountain Cedar 3; Class Mouse Urine Protein 0; Class Mugwort 4; Class Oak 6; Class Penicillium crysogenum 0; Class Rough Pigweed 3; Class Sheep Sorrel 3; Class Sycamore 3; Class Timothy Grass 3; Class Walnut Tree 4; Class White Ash 5; Class White Mulberry 0; D002 - IgE D farinae 0.69 kU/L; E005 - IgE Dog Dander 0.53 kU/L; E072-IgE Mouse Urine <0.10 kU/L; G002 IgE Bermuda Grass 3.51 kU/L; G006 - IgE Timothy Grass 5.66 kU/L; I006-IgE Cockroach, German 4.21 kU/L; Immunoglobulin E 2197 kU/L (<OR=114); Immunoglobulin E 2320 kU/L (<OR=114); M001 IgE Penicillium chrysogen <0.10 kU/L; M002 - IgE Cladosporium herbar 0.15 kU/L; M003 - IgE Aspergillus fumigat 0.21 kU/L; M006 - IgE Alternaria alternat 0.47 kU/L; T003 IgE Common Silver Birch >100 kU/L; T006 - IgE Cedar, Mountain 4.78 kU/L; T007 - IgE Oak, White >100 kU/L; T070 - IgE White Mulberry <0.10 kU/L; W001 - IgE Ragweed, Short >100 kU/L; W018 IgE Sheep Sorrel 4.16 kU/L
[2024-01-27 10:28] LABS: Asperg fumigatus Precip Abs NEGATIVE; Micropoly faeni Abs NEGATIVE; Pigeon serum Abs NEGATIVE; Saccharo pora viridis Abs NEGATIVE; Thermo candidus Abs NEGATIVE; Thermoa vulgaris #1 NEGATIVE
== END 2024-01-17 14:24 | disposition home or self-care (01) ==
LOC: HO.WFDLDS 14:23
PROVIDERS: Visit Provider Nurse Practitioner Family
DX: R05.9 Cough, unspecified (principal); Z91.09 Other allergy status, other than to drugs and biological substances
CPT/HCPCS: 36415; 82785; 86003; 86331; 86606; 86609

== ENCOUNTER 2024-02-07 15:27 | Outpatient (AMB) | payer OTHER, SELFPAY ==
--- OUTSIDE RECORDS SUMMARY | 2024-02-07 15:33 | XMS_ITS ---
Author Name [facility] Organization Unknown Results Test Name/Text Value Interpretation Date Range Source Service [facility] XXX-Imp Cepheid GeneXpert (RT-PCR) [facility] Normal [facility] FLUBV RNA Nph Ql MATTIE+non-probe NEGATIVE Normal [facility] RSV RNA Nph Ql MATTIE+non-probe NEGATIVE Normal [facility] FLUAV RNA Nph Ql MATTIE+non-probe NEGATIVE Normal [facility] CREAT SERPL MCNC 1.1mg/dL Normal 0.7 - 1.3 [facility] CALCIUM SERPL MCNC 9.7mg/dL Normal 8.4 - 10.2 [facility] SODIUM SERPL SCNC 136mmol/L Normal 135 - 145 [facility] ANION GAP SERPL SCNC 9mmol/L Normal 5 - 14 [facility] Glomerular filtration rate/1.73 sq M. predicted 89 Normal 60 - [facility] HCO3 SER SCNC 24mmol/L Normal 24 - 32 C[facility] GLUCOSE SERPL MCNC 86mg/dL Normal 70 - 199 [facility] BUN SERPL MCNC 14mg/dL Normal 9 - 20 [facility] CHLORIDE SERPL SCNC 103mmol/L Normal 98 - 107 [facility] POTASSIUM SERPL SCNC 4.1mmol/L Normal 3.5 - 5.1 [facility] PLATELET NO. BLD AUTO 249K/uL Normal 150 - 450 [facility] RBC NO. BLD AUTO 4.84M/uL Normal 4.7 - 6 [facility] NUCLEATED RBC 0% Normal 0 - 1 [facility] LYMPHOCYTES NO. BLD AUTO 2.6K/uL Normal 1 - 3.2 [facility] EOSINOPHIL NO. BLD AUTO 1K/uL Above high normal 0 - 0.5 [facility] MCH RBC QN AUTO 31.6pg Normal 25 - 33 [facility] MCHC RBC AUTO MCNC 34.3g/dL Normal 32 - 36 [facility] MONOCYTES NFR BLD AUTO 5.9% Normal 2 - 12 [facility] IMMATURE GRANULOCYTE, ABSOLUTE 0.02k/uL Normal - 0.1 [facility] LYMPHOCYTES NFR BLD AUTO 25.3% Normal 20 - 48 [facility] EOSINOPHIL NFR BLD AUTO 9.8% Above high normal 0 - 6 [facility] HGB BLD MCNC 15.3g/dL Normal 13.5 - 18 [facility] NEUTROPHILS NO. BLD AUTO 6K/uL Normal 1.8 - 7.8 [facility] WBC NO. BLD AUTO 10.3K/uL Normal 4 - 10.5 [facility] BASOPHILS NFR BLD AUTO 0.8% Normal 0 - 2 [facility] MONOCYTES NO. BLD AUTO 0.6K/uL Normal 0 - 0.8 [facility] MCV RBC AUTO 92.1fL Normal 78 - 100 [facility] NEUTROPHILS NFR BLD AUTO 58% Normal 44 - 74 [facility] IMMATURE GRANULOCYTE, PERCENT 0.2% Normal 0 - 1 [facility] BASOPHILS IN BLOOD BY AUTOMATED COUNT 0.1K/uL Normal 0 - 0.2 [facility] PMV BLD AUTO 9.3fL Normal 7.4 - 11.4 [facility] RDW RBC AUTO RTO 12.7% Normal 12.1 - 17.7 [facility] HCT VFR BLD AUTO 44.6% Normal 40 - 54 [facility] SPECIMEN SOURCE XXX NASOPHARYNGEAL Normal [facility] Service [facility] XXX-Imp Cepheid GeneXpert (RT-PCR) [facility] Normal [id number] [facility] FLUBV RNA Nph Ql MATTIE+non-probe NEGATIVE Normal [id number] [facility] RSV RNA Nph Ql MATTIE+non-probe NEGATIVE Normal [id number] [facility] FLUAV RNA Nph Ql MATTIE+non-probe NEGATIVE Normal [id number] [facility] SPECIMEN SOURCE XXX NASOPHARYNGEAL Normal [id number] [facility] Service [facility] XXX-Imp Cepheid GeneXpert (RT-PCR) [facility] Normal [id number] [facility] FLUBV RNA Nph Ql MATTIE+non-probe NEGATIVE Normal [id number] [facility] RSV RNA Nph Ql MATTIE+non-probe NEGATIVE Normal [id number] [facility] FLUAV RNA Nph Ql MATTIE+non-probe NEGATIVE Normal [id number] [facility] CREAT SERPL MCNC 1mg/dL Normal [id number] 0.7 - 1.3 [facility] CALCIUM SERPL MCNC 9.3mg/dL Normal [id number] 8.4 - 10.2 [facility] SODIUM SERPL SCNC 137mmol/L Normal [id number] 135 - 145 [facility] ANION GAP SERPL SCNC 9mmol/L Normal [id number] 5 - 14 [facility] Glomerular filtration rate/1.73 sq M. predicted 101 Normal [id number] 60 - [facility] HCO3 SER SCNC 25mmol/L Normal [id number] 24 - 32 [facility] GLUCOSE SERPL MCNC 154mg/dL Normal [id number] 70 - 199 [facility] BUN SERPL MCNC 16mg/dL Normal [id number] 9 - 20 [facility] CHLORIDE SERPL SCNC 103mmol/L Normal [id number] 98 - 107 [facility] POTASSIUM SERPL SCNC 3.7mmol/L Normal [id number] 3.5 - 5.1 [facility] PLATELET NO. BLD AUTO 257K/uL Normal [id number] 150 - 450 [facility] RBC NO. BLD AUTO 4.8M/uL Normal [id number] 4.7 - 6 [facility] NUCLEATED RBC 0% Normal [id number] 0 - 1 [facility] LYMPHOCYTES NO. BLD AUTO 2.6K/uL Normal [id number] 1 - 3.2 [facility] EOSINOPHIL NO. BLD AUTO 0.1K/uL Normal [id number] 0 - 0.5 [facility] MCH RBC QN AUTO 31pg Normal [id number] 25 - 33 [facility] MCHC RBC AUTO MCNC 34.5g/dL Normal [id number] 32 - 36 [facility] MONOCYTES NFR BLD AUTO 6.5% Normal [id number] 2 - 12 [facility] IMMATURE GRANULOCYTE, ABSOLUTE 0.03k/uL Normal [id number] - 0.1 [facility] LYMPHOCYTES NFR BLD AUTO 30.3% Normal [id number] 20 - 48 [facility] EOSINOPHIL NFR BLD AUTO 1.5% Normal [id number] 0 - 6 [facility] HGB BLD MCNC 14.9g/dL Normal [id number] 13.5 - 18 [facility]H NEUTROPHILS NO. BLD AUTO 5.2K/uL Normal [id number] 1.8 - 7.8 [facility] WBC NO. BLD AUTO 8.6K/uL Normal [id number] 4 - 10.5 [facility] BASOPHILS NFR BLD AUTO 0.7% Normal [id number] 0 - 2 [facility] MONOCYTES NO. BLD AUTO 0.6K/uL Normal [id number] 0 - 0.8 [facility] MCV RBC AUTO 90fL Normal [id number] 78 - 100 [facility] NEUTROPHILS NFR BLD AUTO 60.7% Normal [id number] 44 - 74 [facility] IMMATURE GRANULOCYTE, PERCENT 0.3% Normal [id number] 0 - 1 [facility] BASOPHILS IN BLOOD BY AUTOMATED COUNT 0.1K/uL Normal [id number] 0 - 0.2 [facility] PMV BLD AUTO 9.4fL Normal [id number] 7.4 - 11.4 [facility] RDW RBC AUTO RTO 12.5% Normal [id number] 12.1 - 17.7 [facility] HCT VFR BLD AUTO 43.2% Normal [id number] 40 - 54 [facility] SPECIMEN SOURCE XXX NASOPHARYNGEAL Normal [id number] [facility] Service [facility] XXX-Imp Cepheid GeneXpert (RT-PCR) [facility] Normal [id number] [facility] FLUBV RNA Nph Ql MATTIE+non-probe NEGATIVE Normal [id number] [facility] RSV RNA Nph Ql MATTIE+non-probe NEGATIVE Normal [id number] [facility] FLUAV RNA Nph Ql MATTIE+non-probe NEGATIVE Normal [id number] [facility] S pyo Ag Throat Ql IA rapid Normal [id number] - [facility] SPECIMEN SOURCE XXX NASOPHARYNGEAL Normal [id number] [facility] History of Medication Use Medication Directions Dispensed Refills Start Date End Date Status ketorolac (TORADOL) injection 15 mg 15 mg, Intravenous, Once, On Sat11/26/23 at 2000, For 1 dose 4 completed benzonatate (Tessalon Perles) 100 MG capsule Take 1 capsule (100 mg total) by mouth 3 (three) times a day as needed for cough. 4 active predniSONE (DELTASONE) tablet 20 mg Take 3 tablets (60 mg total) by mouth daily for 1 day, THEN 2 tablets (40 mg total) daily for 2 days, THEN 1 tablet (20 mg total) daily for 2 days. 4 active methylPREDNISolone sodium succinate (SOLU-Medrol) injection 125 mg 125 mg, Intravenous, Once, On Sat11/26/23 at 1845, For 1 doseAdminister over 2-3 minutes 4 completed albuterol 108 (90 Base) MCG/ACT inhaler Inhale into the lungs every 6 (six) hours as needed for wheezing. 4 active predniSONE (DELTASONE) tablet 60 mg 60 mg, Oral, Once, On Sat05/23/23 at 1145, For 1 dose 4 completed ipratropium-albuterol (DUO-NEB) nebulizer solution 3 mL 3 mL, Nebulization, Once, On Sat05/23/23 at 1030, For 1 dose 4 completed predniSONE (DELTASONE) tablet 10 mg Prednisone 10 mg tablets - Disp. #40 - Si tabs daily x 3 days; 4 tabs daily x 3 days; 2 tabs daily x 3 days; 1 tab daily x 3 days 4 active Problems Problem Status Onset Date Problem Type Date of Resolution Source Asthma exacerbation active EncounterDiagnosisAc t [facility]
--- NOTE | 2024-02-07 15:43 | A.OFFVIS_ITS ---
Vital Signs 02/07/24 15:44 Height 5 ft 5 in Weight 174 lb 8 oz BMI 29.0 BP 130/66 Blood Pressure Location Rt brachial Position Sitting Pulse 97 Pulse Source Pulse Oximeter Pulse Oximetry (%) 99 Oxygen Delivery Method Room Air Intake Visit Reasons: Shortness of breath Allergies Peanut Butter Allergy (Severe, Verified 02/07/24 15:45) Swelling shellfish derived Allergy (Severe, Verified 02/07/24 15:45) unknown peas Adverse Reaction (Uncoded 02/07/24 15:45) Anaphylaxis HPI HPI Shortness of breath: Details: Nii is a pleasant 38 year old male, current smoker, with 10pyh with underlying asthma and GERD. He was initially referred for worsening control of asthma since mid October with persistent dry cough, wheezing, dyspnea and chest tightness. He was initially improving after doxycyline and prednisone however symptoms recurred once completing. At the last visit, he was on 60 mg of prednisone with persistent cough. Denies fevers or chills. He notes cough is worse with heat and prolonged talking. Symptoms improve with cool air. He was recently prescribed Symbicort and using albuterol MDI frequently. At the last visit, he was started on singulair and required additional prednisone, with moderate improvement however once off of prednisone symptoms recurred. He is currently on 30 mg prednisone. He does note that he is only using symbicort in the AM. Today he presents to review RAST testing. He denies any visits to urgent care or hospitalizations since the last visit. [facility] Medical History Depression with anxiety GERD (gastroesophageal reflux disease) Back muscle spasm Surgical History History of mandibular surgery Hx of tonsillectomy Family History Father Heart attack Mother Lung disease Maternal Grandmother Diabetes History of multiple strokes Social History (Updated 02/07/24 @ 15:45 by Betty Hahn [facility]) [facility] Alcohol intake: current Patient Tobacco Use Status: Current everyday Tobacco user Cigarettes Per Day: 2 e-Cigarette/Vaping Use: Never Used Second Hand Smoke Exposure: No service: No Current occupational status: employed Current occupation: [employer] Current occupational exposures/hazards: Yes Cognitive needs: No Hearing needs: No Vision needs: No Review of Systems Const Denies chills, Denies excessive sweating, Denies fever(s), Denies headache(s) and Denies night sweats Eyes Denies dry eyes, Denies irritation and Denies itchy eyes ENT Reports Normal hearing present, Denies headache(s), Denies nasal congestion, Denies nasal discharge, Denies post nasal drip and Denies sore throat Card Denies chest pain, Denies chest pain at rest, Denies chest pain with activity, Denies claudication, Denies leg edema, Reports dyspnea on exertion, Denies orthopnea and Denies paroxysmal nocturnal dyspnea Resp Denies chest congestion, Reports cough, Denies excessive phlegm production, Denies pain on inspiration, Denies pain with cough, Reports dyspnea on exertion, Denies stridor and Denies wheezing Musc Denies myalgias Neuro Reports Normal hearing present and Denies headache(s) Endo Denies excessive sweating Tom/Lymph Denies lymphadenopathy Aller/Immun Denies itchy eyes, Denies seasonal rhinorrhea and Denies wheezing Physical Exam Vital Signs: Last Vital Signs Pulse 97 02/07/24 15:44 BP 130/66 02/07/24 15:44 Pulse Ox 99 02/07/24 15:44 Oxygen Delivery Method Room Air 02/07/24 15:44 BMI result Body Mass Index 29.0 Const General: cooperative, healthy appearing, no acute distress, well developed and alert Orientation/consciousness: patient oriented x3 Limitations: no limitations HEENT Head: Yes normal to inspection, Yes normocephalic and Yes atraumatic Ears: hearing grossly normal bilaterally and external ears normal Eyes General: appearance normal, both eyes and all related structures Eyelids: Yes eyelids normal Sclerae: sclerae normal EOM: EOMs intact bilaterally Neck Neck: Yes normal visual inspection and Yes no lymphadenopathy Lymphatic: no lymphadenopathy noted Chest Chest palpation & inspection: normal inspection of the chest Resp Other: minimal coughing throughout visit Effort & Inspection: normal respiratory effort, able to speak in complete sentences, no audible wheezes, no stridor, not tachypneic, no tripod positioning and no use of accessory muscles Auscultation: clear to auscultation bilaterally Cardio Jugular venous distension: no JVD Rate: regular rate Rhythm: regular rhythm Skin Other: warm, dry General skin exam: no rashes or lesions noted Neuro General: patient oriented x3 Cranial nerves: Yes Normal hearing present Cognition (Neuro): normal cognition Gait exam (Neuro): Normal gait present Extrem General: Yes normal to inspection, Yes capillary refill normal, Yes no clubbing, cyanosis or edema and Yes no pedal edema Psych Appearance: grossly normal and well kempt Speech and movement: Normal speech and movement present and Clear speech present Affect: normal affect Attitude: cooperative Thought process: Normal thought process present Thought content: Normal thought content present Insight: Good insight present (Psych) Judgement: Good judgement present (Psych) Assessment & Plan Assessment & Plan (1) Asthma: Code(s): J45.909 - Unspecified asthma, uncomplicated Category: Medical (2) Cough: Code(s): R05.9 - Cough, unspecified Category: Medical (3) Environmental allergies: Code(s): Z91.09 - Other allergy status, other than to drugs and biological substances Category: Medical Plan Reviewed RAST which revealed significant environmental allergies. Discussed ways to minimize allergen exposure. Advised to take daily antihistamine and continue singulair. Discussed importance of using symbicort 2 inhalations twice per day and continue to taper off prednisone. May need to consider biologic therapy given significant allergic component, IgE >2000, unable to check eosinophils as patient on prednisone at the time of lab draw. He is aware to call if symptoms worsen once completing prednisone. Will send for PFT as cough is more controlled. All questions were answered and patient is in agreement of plan. Will follow up in 4 weeks or sooner if needed. Orders: Orders PFT pulmonary function test Today J45.909 - Unspecified asthma, uncomplicated Coding Level of Care Code Est Pt Level 4 (72376) Diagnoses Asthma J45.909 Cough R05.9 Environmental allergies Z91.09
[2024-02-07 15:44] VITALS: BP 130/66; PULSE 97; O2SAT 99; BMI 29.0
== END 2024-02-07 16:25 | disposition home or self-care (01) ==
PROVIDERS: PCP Nurse Practitioner Family; Visit Provider Nurse Practitioner Family
DX: J45.909 Unspecified asthma, uncomplicated (principal); R05.9 Cough, unspecified; Z91.09 Other allergy status, other than to drugs and biological substances
CPT/HCPCS: 99214

== ENCOUNTER → 2024-02-07 15:27 | Outpatient (BNVA) | payer OTHER, SELFPAY | PROVIDERS: PCP Nurse Practitioner Family; Visit Provider Nurse Practitioner Family | DX: J45.909 Unspecified asthma, uncomplicated (principal); R05.9 Cough, unspecified; Z91.09 Other allergy status, other than to drugs and biological substances | CPT/HCPCS: 99212 ==

== ENCOUNTER 2024-04-08 09:40 | Outpatient (AMB) | payer OTHER, SELFPAY ==
--- NOTE | 2024-04-08 10:13 | AM.OFFWIN_ITS ---
Intake Vital Signs 04/08/24 10:15 Weight 172 lb BP 120/80 Blood Pressure Location Rt brachial Position Sitting Pulse 85 Pulse Source Pulse Oximeter Temp 97.7 F Temp Source Oral Pulse Oximetry (%) 97 Oxygen Delivery Method Room Air Intake Visit Reasons: EP-rt eye swollen, cloudy vision Intake Note: Patient here for right swelling, cloudy, redness and discharge that started last night. Patient Tobacco Use Status: Current everyday Tobacco user Allergies Peanut Butter Allergy (Severe, Verified 04/08/24 10:16) Swelling shellfish derived Allergy (Severe, Verified 04/08/24 10:16) unknown peas Adverse Reaction (Uncoded 04/08/24 10:16) Anaphylaxis Do you need a note to return to daycare/school/sports/work: Yes HPI HPI Comments History of Present Illness Details He presents to office with R eye symptoms Last night + itchy, red, irritating Garrett like sand in eye Pain improved with washing his eye This am the redness gone but eye was swollen shut with crusting Continual drainage throughout the morning Last okay in an hour and discharge; goopy crust. Not watery drainage He said slight cloudy vision R side No contacts or glasses + congestion No trauma or injury to eye to cause issue He said no pain currently [facility] Medical History Depression with anxiety GERD (gastroesophageal reflux disease) Back muscle spasm Surgical History History of mandibular surgery Hx of tonsillectomy Family History Father Heart attack Mother Lung disease Maternal Grandmother Diabetes History of multiple strokes Social History (Updated 02/07/24 @ 15:45 by Betty Hahn [facility]) Housing: Condominium Alcohol intake: current Patient Tobacco Use Status: Current everyday Tobacco user Cigarettes Per Day: 2 e-Cigarette/Vaping Use: Never Used Second Hand Smoke Exposure: No service: No Current occupational status: employed Current occupation: [employer] Current occupational exposures/hazards: Yes Cognitive needs: No Hearing needs: No Vision needs: No Review of Systems Const Denies body aches, Denies chills and Denies fever(s) Eyes Reports blurry vision, Reports eye discharge, Reports irritation, Reports itchy eyes, Denies loss of vision and Denies photophobia ENT Denies otalgia, Reports nasal congestion and Denies sinus pressure Card Denies chest pain and Denies dyspnea Resp Reports cough, Denies dyspnea and Reports other (hx asthma and looking for refill on med) Skin/Breast Denies erythema and Denies rash Neuro Denies loss of vision Aller/Immun Reports itchy eyes Physical Exam Vital Signs: Last Vital Signs Temp 97.7 F 04/08/24 10:15 Pulse 85 04/08/24 10:15 BP 120/80 04/08/24 10:15 Pulse Ox 97 04/08/24 10:15 Oxygen Delivery Method Room Air 04/08/24 10:15 General: Non-toxic, NAD. Speaking full sentences. Skin: Warm dry throughout. No periorbital erythema or warmth Eye: Slight R upper eyelid edema. No ttp around R orbit. PERRL and EOMI. No FB under R upper or lower conjunctivae and no conjunctival injection L eye PERRL and EOMI without FB under eyelids HENT: rhinorrhea Respiratory:No respiratory distress or cough on exam Cardiac: Regular rate Neurology: Alert. No aphasia or facial droop. Gait without abnormality Psych: Good mood and affect Eyes Direct Ophthalmoscopy: No photophobia Assessment & Plan Assessment & Plan (1) Irritation of right eye: Code(s): H57.89 - Other specified disorders of eye and adnexa Plan: Patient seen and evaluated. Verbal consent obtained; saline placed on fluorescene strip. Strip applied to R eye. Blue light revealed no uptake, corneal abrasion, dendritic lesions or FBs. Pt tolerated well. Eye rinsed with saline. ofloxacin for early bacterial conjunctivitis Discussed hand hygeine and avoiding spread of injection Pt is [facility] pt; gave refil on singulair & tessalon which he is taking as directed Patient gave verbal understanding and had no additional questions or concerns at time of discharge All questions answered Medications: New ofloxacin 0.3% put 1 drp into affected eye every 4 h x 2 days, then 1-2 drps 4 times/day days 3-7 ophthalmic (eye) 10 mL 0RF benzonatate 100 mg PO BID-TID PRN 14 caps 0RF cough Refilled budesonide-formoterol 160-4.5 mcg/actuation (Symbicort) 1 puff inhalation BID 10.2 grams 2RF Coding Level of Care Code Est Pt Level 3 (09210) Diagnoses Irritation of right eye H57.89
[2024-04-08 10:15] VITALS: BP 120/80; PULSE 85; TEMP 36.5; O2SAT 97
--- OUTSIDE RECORDS SUMMARY | 2024-04-08 10:55 | XMS_ITS | Clinical Summary ---
Author Organization [facility] Address [address] [place] [address] Care Team Providers Care Entry Specialists Name Role Phone Deep Hebert Primary Care Provider [phone] Allergies Active Allergy Reactions Criticality Noted Date Comments Peanuts 05/23/2023 Peas Hives High 05/23/2023 Seasonal 05/23/2023 Shellfish 05/23/2023 Medications Medication Sig Dispensed Refills Start Date End Date Status albuterol 108 (90 Base) MCG/ACT inhaler Inhale into the lungs every 6 (six) hours as needed for wheezing. 0 Active benzonatate (Tessalon Perles) 100 MG capsule Take 1 capsule (100 mg total) by mouth 3 (three) times a day as needed for cough. 15 capsule 0 11/26/2023 Active Active Problems No known active problems Social History Tobacco Use Types Packs/Day Years Used Date Smoking Tobacco: Every Day Cigarettes 0.5 Smokeless Tobacco: Never Tobacco Cessation:Ready to Q uit: Not Asked; Counseling Given: Not Answered Sex and Gender Information Value Date Recorded Sex Assigned at Male 02/11/2023 10:25 AM EST Gender Identity Not on file Sexual Orientation Not on file Job Start Date Occupation Industry Not on file Not on file Not on file Last Filed Vital Signs Vital Sign Reading Time Taken Comments Blood Pressure 141/95 11/26/2023 6:31 PM EDT Pulse 109 11/26/2023 6:31 PM EDT Temperature 36.7 ??C (98.1 ??F) 11/26/2023 6:31 PM ED T Respiratory Rate 20 11/26/2023 6:31 PM EDT Oxygen Saturation 97% 11/26/2023 7:16 PM EDT Inhaled Oxygen Concentration - - Weight 81.6 kg (180 lb) 11/26/2023 6:31 PM EDT Height 165.1 cm (5' 5 ) 11/26/2023 6:31 PM EDT Body Mass Index 29.95 11/26/2023 6:31 PM EDT Plan of Treatment Health Maintenance Due Date Last Done Comments Hepatitis B Vaccines (1 of 3 - 3-dose series) 1987 Hepatitis C Screening 1987 COVID-19 Vaccine (#1) 02/10/1988 Pneumococcal Vaccine (1 of 2 - PCV) 08/10/1993 Depression Screening 1999 Preventative Health Evaluation 08/10/2005 DTap / Tdap / Td (1 - Tdap) 08/10/2006 Influenza Vaccine (#1) 2023 RSV Ped < 20 months Aged Out No longe r eligible based on patient's age to complete this topic Care Teams Entry Specialists Relationship Specialty Start Date End Date Deep Hebert [address] [place] [address] PCP - General Family Medicine 05/23/23
--- OUTSIDE RECORDS SUMMARY | 2024-04-08 10:55 | XMS_ITS | Clinical Summary ---
Author Organization [facility] ity Address [address] [place] [address] Care Team Providers Care User Interface Artist Name Role Phone Deep Hebert NP Primary Care Provider [phone] Medical History Medical History Date Comments Seasonal allergies DX:Seasonal a llergies Asthma DX:Asthma Social History Tobacco Use Types Packs/Day Years Used Date Smoking Tobacco: Every Day Cigarettes Smokeless Tobacco: Never Sex and Gender Information Value Date Recorded Sex Assigned at Not on file Legal Sex Male 10:57 PM EST Gender Identity Not on file Sexual Orientation Not on file Obstetrics History Last Filed Vital Signs Vital Sign Reading Time Taken Comments Blood Pressure - - Pulse - - Temperature - - Respiratory Rate - - Oxygen Saturation - - Inhaled Oxygen Concentration - - Weight 81.6 kg (180 lb) 11/26/2023 6:31 PM EDT Height 165.1 cm (5' 5 ) 11/26/2023 6:31 PM EDT Body Mass Index 29.95 11/26/2023 6:31 PM EDT Plan of Treatment Health Maintenance Due Date Last Done Comments DTaP,Tdap,and Td Vaccines (1 - Tdap) 08/10/2006 Hepatitis B Vaccines (1 of 3 - 19+ 3-dose series) 08/10/2006 Pneumococcal Vaccine: Pediat rics (0 to 5 Years) and At-Risk Patients (6 to 64 Years) (1 of 2 - PCV) 08/10/2006 Cholesterol Screening (Lipid Panel) 03/31/2023 Depression Screening 03/31/2023 HIV Screening 03/31/2023 Hepatitis C Screening 03/31/2023 Social Influencers of Health Screening 03/31/2023 COVID-19 Vaccine (1 - 2023-2 5 season) 2023 Influenza Vaccine (#1) 2023 HIB Vaccines Aged Out No longer eligi ble based on patient's age to complete this topic HPV Vaccines Aged Out No longer eligi ble based on patient's age to complete this topic Hepatitis A Vaccines Aged Out No long er eligible based on patient's age to complete this topic IPV Vaccines Aged Out No longer eligi ble based on patient's age to complete this topic MMR Vaccines Aged Out No longer eligi ble based on patient's age to complete this topic Meningococcal ACWY Vaccine Aged Out N o longer eligible based on patient's age to complete this topic Meningococcal B Vacine Aged Out No lo nger eligible based on patient's age to complete this topic RSV Immunization Patients Un idalia 20 months Aged Out No longer eligible b ased on patient's age to complete this topic Varicella Vaccines Aged Out No longer eligible based on patient's age to complete this topic Care Teams User Interface Artist Relationship Specialty Start Date End Date Deep Hebert NP [address] [place] [address] PCP - General 05/23/23
== END 2024-04-08 10:40 | disposition home or self-care (01) ==
PROVIDERS: PCP Nurse Practitioner Family; Visit Provider Physician Assistant
DX: H57.89 Other specified disorders of eye and adnexa (principal)

== ENCOUNTER → 2024-04-08 09:40 | Outpatient (BNVA) | payer OTHER, SELFPAY | PROVIDERS: PCP Nurse Practitioner Family | DX: H57.89 Other specified disorders of eye and adnexa (principal) | CPT/HCPCS: 99212 ==

== ENCOUNTER 2024-06-30 15:24 | Outpatient (AMB) | payer OTHER, SELFPAY ==
--- NOTE | 2024-06-30 15:30 | A.OFFVIS_ITS ---
Vital Signs 06/30/24 15:31 Height 5 ft 5 in Weight 180 lb BMI 30.0 BP 122/66 Blood Pressure Location Rt brachial Position Sitting Pulse 104 H Pulse Source Pulse Oximeter Pulse Oximetry (%) 98 Oxygen Delivery Method Room Air Intake Visit Reasons: Shortness of breath Allergies Peanut Butter Allergy (Severe, Verified 06/30/24 15:33) Swelling shellfish derived Allergy (Severe, Verified 06/30/24 15:33) unknown peas Adverse Reaction (Uncoded 06/30/24 15:33) Anaphylaxis HPI HPI Shortness of breath: Details: Nii is a pleasant 38 year old male, current smoker, with 10pyh with underlying asthma and GERD. He reports poor control of asthma with persistent dry cough, wheezing, dyspnea and chest tightness since October. He was prescribed prednisone in November and January with moderate improvement in symptoms however once d/c symptoms worsened. He has been suboptimally controlled on Symbicort, and Singulair requiring albuterol/DuoNeb frequently. He denies any visits to urgent care or hospitalizations related to respiratory distress since the last visit. [facility] Medical History Depression with anxiety GERD (gastroesophageal reflux disease) Back muscle spasm Surgical History History of mandibular surgery Hx of tonsillectomy Family History Father Heart attack Mother Lung disease Maternal Grandmother Diabetes History of multiple strokes Social History Housing: Condominium Alcohol intake: current Patient Tobacco Use Status: Current everyday Tobacco user Cigarettes Per Day: 2 e-Cigarette/Vaping Use: Never Used Second Hand Smoke Exposure: No service: No Current occupational status: employed Current occupation: [employer] Current occupational exposures/hazards: Yes Cognitive needs: No Hearing needs: No Vision needs: No Review of Systems Const Denies chills, Denies excessive sweating, Denies fever(s), Denies headache(s) and Denies night sweats Eyes Denies dry eyes, Denies irritation and Denies itchy eyes ENT Reports Normal hearing present, Denies headache(s), Reports nasal congestion, Denies nasal discharge, Denies post nasal drip and Denies sore throat Card Denies chest pain, Denies chest pain at rest, Denies chest pain with activity, Denies claudication, Denies leg edema, Reports dyspnea on exertion, Denies orthopnea and Denies paroxysmal nocturnal dyspnea Resp Denies chest congestion, Reports cough, Denies hemoptysis, Denies excessive phlegm production, Denies pain on inspiration, Denies pain with cough, Reports dyspnea on exertion, Denies stridor and Reports wheezing Musc Denies myalgias Neuro Reports Normal hearing present and Denies headache(s) Endo Denies excessive sweating Tom/Lymph Denies lymphadenopathy Aller/Immun Denies itchy eyes, Denies seasonal rhinorrhea and Reports wheezing Physical Exam Vital Signs: Last Vital Signs Pulse 104 H 06/30/24 15:31 BP 122/66 06/30/24 15:31 Pulse Ox 98 06/30/24 15:31 Oxygen Delivery Method Room Air 06/30/24 15:31 BMI result Body Mass Index 30.0 Const General: cooperative, healthy appearing, no acute distress, well developed and alert Orientation/consciousness: patient oriented x3 Limitations: no limitations HEENT Head: Yes normal to inspection, Yes normocephalic and Yes atraumatic Ears: hearing grossly normal bilaterally and external ears normal Eyes General: appearance normal, both eyes and all related structures Eyelids: Yes eyelids normal Sclerae: sclerae normal EOM: EOMs intact bilaterally Neck Neck: Yes normal visual inspection and Yes no lymphadenopathy Lymphatic: no lymphadenopathy noted Chest Chest palpation & inspection: normal inspection of the chest Resp Other: minimal coughing throughout visit Effort & Inspection: normal respiratory effort, able to speak in complete sentences, no audible wheezes, no stridor, not tachypneic, no tripod positioning and no use of accessory muscles Auscultation: clear to auscultation bilaterally Cardio Jugular venous distension: no JVD Rate: regular rate Rhythm: regular rhythm Skin Other: warm, dry General skin exam: no rashes or lesions noted Neuro General: patient oriented x3 Cranial nerves: Yes Normal hearing present Cognition (Neuro): normal cognition Gait exam (Neuro): Normal gait present Extrem General: Yes normal to inspection, Yes capillary refill normal, Yes no clubbing, cyanosis or edema and Yes no pedal edema Psych Appearance: grossly normal and well kempt Speech and movement: Normal speech and movement present and Clear speech present Affect: normal affect Attitude: cooperative Thought process: Normal thought process present Thought content: Normal thought content present Insight: Good insight present (Psych) Judgement: Good judgement present (Psych) Assessment & Plan Assessment & Plan (1) Asthma: Code(s): J45.909 - Unspecified asthma, uncomplicated Category: Medical (2) Cough: Code(s): R05.9 - Cough, unspecified Category: Medical (3) Environmental allergies: Code(s): Z91.09 - Other allergy status, other than to drugs and biological substances Category: Medical Plan Patient with minimal change in symptoms continues with wheezing, dry cough and dyspnea despite Symbicort, Singulair and albuterol MDI/DuoNeb, will switch to Trelegy. On exam patient with postexhalation cough, discussed prednisone however he would like to hold off given potential side effects and had two prior prescriptions since November. Will initiate Dupixent given persistently uncontrolled asthma, significant allergic component, IgE >2000, unable to check eosinophils as patient on prednisone at the time of lab draw. Will send for CBC to assess eosinophils and order PFT. Of note, patient with significantly huong vated IgE >2000, with mildly elevated aspergillus antibody posing the question of ABPA. Will consider antifungals and further imaging if no improvement with Dupixent. All questions were answered and patient is in agreement of plan. Will follow up in 4-6 weeks or sooner if needed. Orders: Orders PFT pulmonary function test Today J45.909 - Unspecified asthma, uncomplicated Complete Blood Count Auto Diff Today Z91.09 - Other allergy status, other than to drugs and biological substances Medications: New beyxflysncn-rutitlozw-wbsgxynq 200-62.5-25 mcg (Trelegy Ellipta) 1 inh inhalation DAILY 60 ea 0RF Refilled ipratropium-albuterol 0.5 mg-3 mg(2.5 mg base)/3 mL 3 mL inhalation Q6-8H PRN 90 mL 0RF wheezing Coding Level of Care Code Est Pt Level 4 (88854) Diagnoses Asthma J45.909 Cough R05.9 Environmental allergies Z91.09
[2024-06-30 15:31] VITALS: BP 122/66; PULSE 104; O2SAT 98
--- OUTSIDE RECORDS SUMMARY | 2024-06-30 16:35 | XMS_ITS | Clinical Summary ---
Author Organization [facility] ity Address [address] [place] [address] Care Team Providers Care Catering Staff Member Name Role Phone Deep Hebert NP Primary Care Provider [phone] Medical History Medical History Date Comments Seasonal [...] - 2023-2 5 season) 2023 Influenza Vaccine (Season Ended) 2024 HIB Vaccines Aged Out No longer eligi [...] age to complete this topic Meningococcal B Vaccine Aged Out No l onger eligible based on patient's age to complete this topic RSV Immunization Patients Un idalia 20 months Aged Out No longer eligible b ased on patient's age to complete this topic Varicella Vaccines Aged Out No longer eligible based on patient's age to complete this topic Care Teams Catering Staff Member Relationship Specialty Start Date End Date Deep Hebert NP [address] [place], [place] PCP - General 05/23/23
--- OUTSIDE RECORDS SUMMARY | 2024-06-30 16:35 | XMS_ITS | Clinical Summary ---
Author Organization [facility] Address [address] [place] [address] Care Team Providers Care Motion Picture Camera Operator Name Role Phone Deep Hebert Primary Care Provider [phone] Allergies Active Allergy Reactions Criticality Noted Date [...] age to complete this topic Care Teams Motion Picture Camera Operator Relationship Specialty Start Date End Date Deep Hebert [address] [place] [address] PCP - General Family Medicine 05/23/23
== END 2024-06-30 15:51 | disposition home or self-care (01) ==
LOC: HO.HPSW 15:25
PROVIDERS: PCP Nurse Practitioner Family; Visit Provider Nurse Practitioner Family
DX: J45.909 Unspecified asthma, uncomplicated (principal); R05.9 Cough, unspecified; Z91.09 Other allergy status, other than to drugs and biological substances
CPT/HCPCS: 99214

== ENCOUNTER → 2024-06-30 15:24 | Outpatient (BNVA) | payer OTHER, SELFPAY | PROVIDERS: PCP Nurse Practitioner Family; Visit Provider Nurse Practitioner Family | DX: J45.909 Unspecified asthma, uncomplicated (principal); R05.9 Cough, unspecified; Z91.09 Other allergy status, other than to drugs and biological substances | CPT/HCPCS: 99212 ==

== ENCOUNTER 2024-07-06 11:38 | Outpatient (AMB) | payer OTHER, SELFPAY ==
--- NOTE | 2024-07-06 11:41 | MHC.OFFWIV ---
Intake Vital Signs 07/06/24 11:42 Weight 175 lb BP 128/80 Blood Pressure Location Lt brachial Position Sitting Pulse 78 Pulse Source Pulse Oximeter Temp 98.6 F Temp Source Oral Pulse Oximetry (%) 97 Oxygen Delivery Method Room Air Intake Visit Reasons: EP Rt eye redness, sinus congestion Intake Note: Patient here for sinus congestion and right eye redness that has been present for about 5 days. Patient Tobacco Use Status: Current everyday Tobacco user Allergies Peanut Butter Allergy (Severe, Verified 07/06/24 11:43) Swelling shellfish derived Allergy (Severe, Verified 07/06/24 11:43) unknown peas Adverse Reaction (Uncoded 07/06/24 11:43) Anaphylaxis Do you need a note to return to daycare/school/sports/work: Yes HPI HPI Comments History of Present Illness Details 38 y/o Male patient who presents to the walk in clinic with c/o sinus congestion and right eye redness that has been present for about 5 days. Pt has h/o Seasonal Allergies and currently sees Legislative Analyst. The Legislative Analyst has ordered Allergy Shot and currently waiting for Insurance Approval. Reports using multiple OTC allergy relief medications with no relief. Reports used Flonase, Allergra, Cetirizine, Loratadine, Singulair, Afrin, Sudafed etc Reports loss of smell and taste. Unable move Air in/out through Nose. Pt is a Daily/every day Cigarette smoker - willing to Quit. Patient requesting Nicotine Patches. [facility] Medical History (Updated 07/06/24 @ 12:13 by Judy Moss NP) Nicotine addiction Depression with anxiety GERD (gastroesophageal reflux disease) Back muscle spasm Surgical History History of mandibular surgery Hx of tonsillectomy Family History Father Heart attack Mother Lung disease Maternal Grandmother Diabetes History of multiple strokes Social History Housing: Condominium Alcohol intake: current Patient Tobacco Use Status: Current everyday Tobacco user Cigarettes Per Day: 2 e-Cigarette/Vaping Use: Never Used Second Hand Smoke Exposure: No service: No Current occupational status: employed Current occupation: [employer] Current occupational exposures/hazards: Yes Cognitive needs: No Hearing needs: No Vision needs: No Review of Systems Const All systems reviewed & are unremarkable except as noted in HPI and below Physical Exam Vital Signs: Last Vital Signs Temp 98.6 F 07/06/24 11:42 Pulse 78 07/06/24 11:42 BP 128/80 07/06/24 11:42 Pulse Ox 97 07/06/24 11:42 Oxygen Delivery Method Room Air 07/06/24 11:42 Const General: no acute distress; No comfortable Orientation/consciousness: patient oriented x3 HEENT Head: Yes normocephalic Ears: external ears normal and TM abnormal bulging bilateral and with fluid behind the TM bilateral General nose exam: Normal external nose present, Abnormal mucous membranes and turbinates present boggy and erythematous and Nasal discharge present Face and sinus: Yes face symmetric and Yes sinus tenderness Mouth: moist mucous membranes Throat: Yes uvula midline Resp Effort & Inspection: normal respiratory effort and able to speak in complete sentences Auscultation: clear to auscultation bilaterally, no crackles, no rales, no rhonchi and no wheezes Cardio Heart sounds: S1 normal heart sound present and S2 normal heart sound present Neuro General: patient oriented x3 Assessment & Plan Assessment & Plan (1) Environmental allergies: Code(s): Z91.09 - Other allergy status, other than to drugs and biological substances Plan: Continue f/u With Legislative Analyst. (2) Nicotine addiction: Code(s): F17.200 - Nicotine dependence, unspecified, uncomplicated Qualifiers: Nicotine product type: cigarettes Substance use status: uncomplicated Qualified Code(s): F17.210 - Nicotine dependence, cigarettes, uncomplicated Plan: Ordered Nicotine Patches. Advised not to smoke with Patch on Body. Medications: New nicotine 1 patch transdermal DAILY 14 ea 0RF F17.210 - Nicotine dependence, cigarettes, uncomplicated Coding Level of Care Code Est Pt Level 4 (83302) Diagnoses Environmental allergies Z91.09 Cigarette nicotine dependence without complication F17.210 Nicotine product type: cigarettes Substance use status: uncomplicated Time Spent (min) 20
[2024-07-06 11:42] VITALS: BP 128/80; PULSE 78; TEMP 37; O2SAT 97
--- OUTSIDE RECORDS SUMMARY | 2024-07-06 12:25 | XMS_ITS | Clinical Summary ---
Author Organization [facility] Address [address] [place] [address] Care Team Providers Care Filling Hand Name Role Phone Deep Hebert Primary Care Provider [phone] Allergies Active Allergy Reactions Criticality Noted Date [...] age to complete this topic Care Teams Filling Hand Relationship Specialty Start Date End Date Deep Hebert [address] [place] [address] PCP - General Family Medicine 05/23/23
== END 2024-07-06 12:14 | disposition home or self-care (01) ==
PROVIDERS: PCP Nurse Practitioner Family; Visit Provider Nurse Practitioner Family
DX: Z91.09 Other allergy status, other than to drugs and biological substances (principal); F17.210 Nicotine dependence, cigarettes, uncomplicated

== ENCOUNTER 2024-07-06 11:38 | Outpatient (REF) | payer OTHER, SELFPAY ==
--- OUTSIDE RECORDS SUMMARY | 2024-07-06 12:43 | XMS_ITS | Clinical Summary ---
Author Organization [employer] [facility] ity Address [address] [place] [address] Care Team Providers Care Sap Basis Consultant Name Role Phone Deep Hebert NP Primary Care Provider Medical History Medical History Date Comments Seasonal [...] age to complete this topic Care Teams Sap Basis Consultant Relationship Specialty Start Date End Date Deep Hebert NP [address] [place], [place] PCP - General 05/23/23
[2024-07-06 13:19] LABS: MANUAL DIFF FLAG NO
[2024-07-06 13:51] LABS: Basophils Absolute Auto 0.1 X10*3/uL (0.0-0.2); Basophils Percent Auto 1.1 % (0-2); Eosinophils Percent Auto 8.8 % (0-4); Hematocrit 43.8 % (42.0-52.0); Hemoglobin 14.6 g/dl (14.0-18.0); Imm Gran Abs Auto 0.03 X10*3/uL (0.00-0.03); Imm Gran Pct Auto 0.3 % (0.0-0.4); Lymphocytes Percent Auto 26.8 % (20-40); Mean Corpuscular HGB Conc 33.3 g/dl (31.0-36.0); Mean Corpuscular Hemoglobin 30.4 pg (27.0-33.0); Mean Corpuscular Volume 91.1 fL (80.0-98.0); Mean Platelet Volume 9.6 fL (9.4-12.4); Monocytes Absolute Auto 0.6 X10*3/uL (0.1-1.2); Monocytes Percent Auto 5.7 % (2-11); Neutrophils Absolute Auto 6.5 x10*3/uL (2.0-8.3); Neutrophils Percent Auto 57.3 % (45-73); Platelet Count 378 X10*3/uL (160-400); Red Blood Count 4.81 X10*6/uL (4.60-5.80); White Blood Count 11.3 X10*3/uL (4.8-10.8)
== END 2024-07-06 11:39 | disposition home or self-care (01) ==
LOC: HO.HMGCLDS 11:38
PROVIDERS: PCP Nurse Practitioner Family; Visit Provider Nurse Practitioner Family
DX: Z91.09 Other allergy status, other than to drugs and biological substances (principal); F17.210 Nicotine dependence, cigarettes, uncomplicated; Z71.6 Tobacco abuse counseling
CPT/HCPCS: 36415; 85025; 99212

== ENCOUNTER 2024-07-17 09:51 | Outpatient (AMB) | payer OTHER, SELFPAY ==
--- NOTE | 2024-07-17 10:00 | AM.OFFWIN_ITS ---
Intake Vital Signs 3 07/17/24 10:01 Weight 174 lb BP 130/80 Blood Pressure Location Rt brachial Position Sitting Pulse 90 Pulse Source Pulse Oximeter Pulse Oximetry (%) 98 Oxygen Delivery Method Room Air Intake Visit Reasons: EP-lt leg pain Intake Note: Patient here for left foot pain that radiates up the leg and glute. Patient Tobacco Use Status: Current everyday Tobacco user Allergies Peanut Butter Allergy (Severe, Verified 07/17/24 10:02) Swelling shellfish derived Allergy (Severe, Verified 07/17/24 10:02) unknown peas Adverse Reaction (Uncoded 07/17/24 10:02) Anaphylaxis Do you need a note to return to daycare/school/sports/work: Yes (to cover for today) Return to daycare/school/sports/work/other note: work HPI HPI Comments 2 History of Present Illness0 Details 38 y/o Male patient who presents to the walk in clinic with c/o Left Foot pain that radiates up to the left Buttock. Describes the pain as sharp, located at the bottom of foot (Plantar Aspect). Reports that he was mowing his lawn [place], when he noticed the pain after he finished. He has not taken anything OTC for pain relief. He does admit to getting this pain on/off but not has severe as it this now. He wears Steel Toe Boots for work, and his job requires him to stand for long periods of time. [facility] Medical History (Updated 07/17/24 @ 10:22 by Judy Moss NP) Foot pain, left Nicotine addiction Depression with anxiety GERD (gastroesophageal reflux disease) Back muscle spasm Surgical History History of mandibular surgery Hx of tonsillectomy Family History Father Heart attack Mother Lung disease Maternal Grandmother Diabetes History of multiple strokes Social History Housing: Condominium Alcohol intake: current Patient Tobacco Use Status: Current everyday Tobacco user Cigarettes Per Day: 2 e-Cigarette/Vaping Use: Never Used Second Hand Smoke Exposure: No service: No Current occupational status: employed Current occupation: [employer] Current occupational exposures/hazards: Yes Cognitive needs: No Hearing needs: No Vision needs: No Physical Exam Vital Signs: Last Vital Signs Pulse 90 07/17/24 10:01 BP 130/80 07/17/24 10:01 Pulse Ox 98 07/17/24 10:01 Oxygen Delivery Method Room Air 07/17/24 10:01 Const General: no acute distress Orientation/consciousness: patient oriented x3 Neuro General: patient oriented x3, gait normal and moves all extremities Motor exam (neuro): 5/5 motor strength present throughout Extrem Other: Normal pulses, equally both Feet and lower extremities. Normal color, no swelling. Negative Emilee's sign. Right lower extremity: normal to inspection and full ROM Left lower extremity: normal to inspection, full ROM and foot Details: normal capillary refill, normal to inspection, tenderness Location: of the plantar foot (mid plantar), toes with normal ROM and no edema; no unusual warmth, no ecchymosis and no crepitus Ankle/foot/toe images: 2 1. TTP with Deep Pressure, radiating up to his left Calf muscle. Assessment & Plan Assessment & Plan (1) Foot pain, left: Code(s): M79.672 - Pain in left foot Plan: DDx: Plantar Fasciitis. NSAIDs for pain relief May get Foot Massages Wear comfortable Shoes Soak feet in warm water Medications: New 2 naproxen 500 mg PO BID 10 days 20 tabs 0RF M79.672 - Pain in left foot Coding Level of Care Code Est Pt Level 4 (90386) Diagnoses Foot pain, left M79.672 Time Spent (min) 20
[2024-07-17 10:01] VITALS: BP 130/80; PULSE 90; O2SAT 98
--- OUTSIDE RECORDS SUMMARY | 2024-07-17 10:04 | XMS_ITS | Clinical Summary ---
Author Organization [facility] Address [address] [place] [address] Care Team Providers Care Refinery Operator Helper Name Role Phone Deep Hebert Primary Care Provider [phone] Allergies Active Allergy Reactions Criticality Noted Date [...] age to complete this topic Care Teams Refinery Operator Helper Relationship Specialty Start Date End Date Deep Hebert [address] [place] [address] PCP - General Family Medicine 05/23/23
== END 2024-07-17 10:26 | disposition home or self-care (01) ==
PROVIDERS: PCP Nurse Practitioner Family; Visit Provider Nurse Practitioner Family
DX: M79.672 Pain in left foot (principal)

== ENCOUNTER → 2024-07-17 09:51 | Outpatient (BNVA) | payer OTHER, SELFPAY | PROVIDERS: PCP Nurse Practitioner Family; Visit Provider Nurse Practitioner Family | DX: M79.672 Pain in left foot (principal) | CPT/HCPCS: 99212 ==

== ENCOUNTER 2024-07-23 09:54 | Outpatient (AMB) | payer OTHER, SELFPAY ==
--- NOTE | 2024-07-23 10:03 | MHC.OFFWIV ---
Intake Vital Signs 07/23/24 10:05 Height 5 ft 5.5 in Weight 176 lb BMI 28.8 BP 118/70 Respiration 14 Pulse 98 Pulse Source Pulse Oximeter Temp 98.3 F Temp Source Oral Pulse Oximetry (%) 97 Oxygen Delivery Method Room Air Intake Visit Reasons: EP Pain on LT foot Patient Tobacco Use Status: Current everyday Tobacco user Chief Dispatcher Required: No Accompanied by: Self / Same As Patient Allergies Peanut Butter Allergy (Severe, Verified 07/23/24 10:08) Swelling shellfish derived Allergy (Severe, Verified 07/23/24 10:08) unknown peas Adverse Reaction (Uncoded 07/23/24 10:08) Anaphylaxis HPI HPI Comments History of Present Illness Details This is a 38-year-old male with a past medical history of asthma presenting for evaluation of left foot pain that he has had for the past 10 days. Patient was initially seen in the walk-in clinic on July 17 and diagnosed with left plantar fasciitis. Patient has been taking ibuprofen intermittently without any relief of his discomfort. Patient states that the pain now radiates to his posterior calf and posterior left thigh. Patient denies any injury or trauma preceding the onset of his symptoms and also denies any back pain or pain in his left buttock. Patient states that the pain is worse with ambulation. [facility] Medical History (Updated 07/23/24 @ 10:49 by Valeria Kahn PA-C) Foot pain, left Nicotine addiction Depression with anxiety GERD (gastroesophageal reflux disease) Back muscle spasm Surgical History History of mandibular surgery Hx of tonsillectomy Family History Father Heart attack Mother Lung disease Maternal Grandmother Diabetes History of multiple strokes Social History Housing: Condominium Alcohol intake: current Patient Tobacco Use Status: Current everyday Tobacco user Cigarettes Per Day: 2 e-Cigarette/Vaping Use: Never Used Second Hand Smoke Exposure: No service: No Current occupational status: employed Current occupation: [employer] Current occupational exposures/hazards: Yes Cognitive needs: No Hearing needs: No Vision needs: No Review of Systems Const All systems reviewed & are unremarkable except as noted in HPI and below Reports as per HPI Eyes Reports as per HPI ENT Reports no additional complaints Card Reports no additional complaints Resp Reports no additional complaints GI Reports no additional complaints Reports no additional complaints Musc Reports abnormal gait, Denies arthralgias, Reports muscle cramps and Reports radiating pain into limb Skin/Breast Reports system reviewed and no additional complaints, except as documented Neuro Reports no additional complaints and Reports abnormal gait Psych Reports no additional complaints Endo Reports no additional complaints Tom/Lymph Reports no additional complaints Aller/Immun Reports no additional complaints Physical Exam Vital Signs: Last Vital Signs Temp 98.3 F 07/23/24 10:05 Pulse 98 07/23/24 10:05 Resp 14 07/23/24 10:05 BP 118/70 07/23/24 10:05 Pulse Ox 97 07/23/24 10:05 Oxygen Delivery Method Room Air 07/23/24 10:05 BMI result Body Mass Index 28.8 Const General: cooperative, healthy appearing, comfortable, no acute distress, well developed, alert, awake and Physically active; No acute distress or ill appearing Nutritional Appearance: average body habitus Orientation/consciousness: patient oriented x3 Limitations: no limitations Back/Spine/Pelvis Thoracic/Lumbar Spine: thoracic and lumbar spine normal to inspection, No pain with thoraco-lumbar ROM, No paraspinal muscle tenderness, No thoraco-lumbar ROM limited, No thoracic spinal tenderness and No lumbar spinal tenderness Sacroiliac joints: bilaterally nontender Sacrum: no tenderness Coccyx: no tenderness Skin General skin exam: no rashes or lesions noted Neuro General: patient oriented x3 Extrem Other: pain to palpation plantar surface of the left foot as well as left calf; no left thigh or left hamstring pain, no sciatic notch tenderness, passive ROM left knee and left ankle intact, no erythema or warmth to touch left lower extremity Psych Appearance: grossly normal Mental Status: mental status grossly normal Insight: Good insight present (Psych) Judgement: Good judgement present (Psych) Assessment & Plan Assessment & Plan (1) Plantar fasciitis, left: Comment: Patient has not been consistent with his anti-inflammatory regimen and comes wearing flip-flops. Patient is encouraged to wear a lace-up shoe at all times and fill the prescription for Naprosyn and take twice daily. Code(s): M72.2 - Plantar fascial fibromatosis Plan: Lace-up shoes daily, Naprosyn q.12 hours as previously prescribed. (2) Pain of left calf: Comment: Patient's symptoms are suspicious for an acute DVT and ultrasound imaging will be obtained. Code(s): M79.662 - Pain in left lower leg Plan: Duplex left lower extremity US scheduled today at 1:30pm. Results to follow. Orders: Orders US venous duplex LE LT Today M79.662 - Pain in left lower leg Coding Level of Care Code Est Pt Level 4 (54612) Diagnoses Plantar fasciitis, left M72.2 Pain of left calf M79.662 Time Spent (min) 20
[2024-07-23 10:05] VITALS: BP 118/70; PULSE 98; RESP 14; TEMP 36.8; O2SAT 97; BMI 28.8
--- OUTSIDE RECORDS SUMMARY | 2024-07-23 10:14 | XMS_ITS | Clinical Summary ---
Author Organization [facility] Address [address] [place] [address] Care Team Providers Care Lombardi Developer Name Role Phone Deep Hebert Primary Care Provider [phone] Allergies Active Allergy Reactions Criticality Noted Date [...] age to complete this topic Care Teams Lombardi Developer Relationship Specialty Start Date End Date Deep Hebert [address] [place] [address] PCP - General Family Medicine 05/23/23
== END 2024-07-23 10:55 | disposition home or self-care (01) ==
PROVIDERS: PCP Nurse Practitioner Family; Visit Provider Physician Assistant
DX: M72.2 Plantar fascial fibromatosis (principal); M79.662 Pain in left lower leg

== ENCOUNTER → 2024-07-23 09:54 | Outpatient (BNVA) | payer OTHER, SELFPAY | PROVIDERS: PCP Nurse Practitioner Family; Visit Provider Nurse Practitioner | DX: Z13.89 Encounter for screening for other disorder (principal) ==

== ENCOUNTER 2024-07-23 13:08 | Outpatient (REF) | payer OTHER, SELFPAY ==
--- NOTE | ~2024-07-23 | US_ITS ---
EXAMINATION: US TRIPLEX LOWER EXTREMITY, LEFT CLINICAL INFORMATION: Left leg pain. COMPARISON: None available. TECHNIQUE: Color-flow triplex imaging with spectral analysis and compression Doppler were performed on the left lower extremity. FINDINGS: Respiratory variation, normal compression and augmented flow are noted throughout the left lower extremity. The visualized common femoral vein, superficial femoral vein, profunda femoral vein, popliteal vein and midcalf peroneal and posterior tibial venous segments show no evidence of deep venous thrombosis. There is no Culver's cyst. US/US venous duplex LE LT IMPRESSION: No evidence of deep venous thrombosis involving the left lower extremity. Electronically signed by: Mushtaq Sprague MD 07/23/2024 03:34 PM EDT
== END 2024-07-23 13:09 | disposition home or self-care (01) ==
LOC: HO.HMGCX 13:08
PROVIDERS: PCP Nurse Practitioner Family; Visit Provider Physician Assistant
DX: M79.662 Pain in left lower leg (principal); M72.2 Plantar fascial fibromatosis
CPT/HCPCS: 93971; 99212

== ENCOUNTER → 2024-07-23 13:09 | Outpatient (BNV) | payer OTHER, SELFPAY | PROVIDERS: PCP Nurse Practitioner Family; Visit Provider Radiology Diagnostic Radiology | DX: M79.605 Pain in left leg (principal) | CPT/HCPCS: 93971 ==

== ENCOUNTER 2024-07-29 07:05 | Outpatient (AMB) | payer OTHER, SELFPAY ==
--- NOTE | 2024-07-29 07:18 | A.OFFPC_ITS ---
Intake Visit Reasons: FMLA Paperwork Allergies Peanut Butter Allergy (Severe, Verified 07/23/24 10:08) Swelling shellfish derived Allergy (Severe, Verified 07/23/24 10:08) unknown peas Adverse Reaction (Uncoded 07/23/24 10:08) Anaphylaxis Tobacco use date assessed: 12/04/23 Dental Screening Dental Screen Date: 12/04/23 HPI FMLA Paperwork HPI Details History of Present Illness The patient is a 38-year-old male presenting with paperwork for Family and Medical Leave Act completion due to severe persistent asthma. He reports a significant history of uncontrolled asthma, currently managed with multiple inhalers. Recently, he has started receiving omalizumab (Xolair) injections. Despite current therapies, he exhibits ongoing symptoms, including nasal congestion and sniffles, reflecting an allergic component. Review of Systems - Respiratory: Reports nasal congestion and sniffles. - Allergic/Immunologic: Reports a signif icant allergic component to his respiratory symptoms. Plan The patient continues management for severe persistent asthma, including current inhalers and omalizumab injections. I shall ensure follow-up with the pulmonary specialists for comprehensive care. For allergic rhinitis, addressing nasal symptoms through potential allergen avoidance and possible further intervention is considered. Discussion Notes I discussed the severity of the patient?s asthma and the introduction of omalizumab injections as part of a comprehensive asthma management plan. The benefits of reducing asthma exacerbations and improving symptom control with omalizumab were highlighted, along with its potential risks and the necessity of supervision by the pulmonary team. Emphasis on ongoing collaboration with pulmonary specialists and possible bobbin fixer evaluation for persistent allergic rhinitis was reiterated. Further follow-up and treatment adjustments were suggested based on symptomatic progression and pulmonary consultation. Patient Instructions - Continue current inhalers as prescribe d. - Attend all scheduled follow-ups with y our pulmonary team. - Monitor and report any changes in symp toms. - Practice allergen avoidance at home. - Ensure adherence to prescribed Biologi c therapy (Xolair injections). - Seek prompt care for severe asthma sym ptoms. [facility] Medical History (Updated 07/23/24 @ 10:49 by Valeria Kahn PA-C) Foot pain, left Nicotine addiction Depression with anxiety GERD (gastroesophageal reflux disease) Back muscle spasm Surgical History History of mandibular surgery Hx of tonsillectomy Family History Father Heart attack Mother Lung disease Maternal Grandmother Diabetes History of multiple strokes [facility] Alcohol intake: current Patient Tobacco Use Status: Current everyday Tobacco user Cigarettes Per Day: 2 e-Cigarette/Vaping Use: Never Used Second Hand Smoke Exposure: No service: No Current occupational status: employed Current occupation: [employer] Current occupational exposures/hazards: Yes Cognitive needs: No Hearing needs: No Vision needs: No Questionnaire Thrive Questionnaire Date Thrive assessed: 12/04/23 I am a: Patient What is your living situation today?: I have a steady place to live Within the past 12 months, did the food you bought not last and you didn't have the money to get more?: Sometimes True Within the past 12 months, did you worry whether your food would run out before you got money to buy more?: Sometimes True Do you have trouble paying for medicines?: Yes Do you have trouble getting transportation to medical appointments?: No Do you have trouble paying your heating and electricity bill?: Yes Do you have trouble taking care of your child, family member or friend?: No Do you have trouble with day-to-day activities such as bathing, preparing meals, shopping, managing finances, etc.?: No Are you interested in more education?: Yes Currently or been in a relationship where the following occur: No concerns reported THRIVE Score: 3 MEGAN-7 AMB Questionnaire MEGAN-7 Date MEGAN - 7 assessed: 12/04/23 Source: Developed by Drs. Matt Cook, Pema Rowe, Rory Fierro and colleagues, with an educational yvette from [employer]. Physical exam (Primary Care) Tobacco/Smoking Status: Tobacco use Status Tobacco use date assessed 12/04/23 07/23/24 09:51 Patient Tobacco Use Status Current everyday Tobacco 07/23/24 10:03 e-Cigarette/Vaping Use Never Used 07/23/24 09:51 Thrive Assessment: Date of Thrive Assessment Date Thrive assessed 10/09/24 05/29/25 09:51 Currently or been in a relationship where the following occur: No concerns reported Telehealth Telehealth Telehealth Platform: [facility] Location of provider rendering services: practice address Location of patient: address on file Patient Identification confirmed using: Name, : Yes Telehealth method: video Patient verbally consented to treatment: Yes Patient verbally consented to billing insurance company: Yes Patient informed of any privacy concerns related to visit: Yes Minutes spent on Phone/Video with Pt.: 15 Coding Level of Care Code Tele Est Pt Level 3 (64780) Diagnoses Asthma J45.909 Shortness of breath R06.02 Assessment & Plan Assessment & Plan (1) Asthma: Code(s): J45.909 - Unspecified asthma, uncomplicated Category: Medical (2) Shortness of breath: Code(s): R06.02 - Shortness of breath Category: Medical Plan .
== END 2024-07-29 08:13 | disposition home or self-care (01) ==
LOC: HO.HMCC 07:06
PROVIDERS: PCP Nurse Practitioner Family; Visit Provider Nurse Practitioner Family
DX: J45.909 Unspecified asthma, uncomplicated (principal); R06.02 Shortness of breath

== ENCOUNTER → 2024-07-29 07:05 | Outpatient (BNVA) | payer OTHER, SELFPAY | PROVIDERS: PCP Nurse Practitioner Family; Visit Provider Nurse Practitioner Family | DX: M72.2 Plantar fascial fibromatosis (principal); M79.672 Pain in left foot; J45.50 Severe persistent asthma, uncomplicated; Z91.09 Other allergy status, other than to drugs and biological substances; M79.605 Pain in left leg; Z79.899 Other long term (current) drug therapy | CPT/HCPCS: 94640; 99212 ==

== ENCOUNTER 2024-07-29 09:55 | Outpatient (AMB) | payer OTHER, SELFPAY ==
--- NOTE | 2024-07-29 09:56 | AM.OFFWIN_ITS ---
Intake Vital Signs 07/29/24 09:57 Height 5 ft 5.5 in Weight 177 lb BMI 29.0 BP 112/80 Blood Pressure Location Rt brachial Position Sitting Pulse 80 Pulse Source Pulse Oximeter Temp 97.7 F Temp Source Oral Pulse Oximetry (%) 98 Oxygen Delivery Method Room Air Intake Visit Reasons: EP allergies/foot pain Intake Note: Pt is here today c/o allergies (nasal congestion) since yesterday/ Lt foot pain on going issue Patient Tobacco Use Status: Current everyday Tobacco user Allergies Peanut Butter Allergy (Severe, Verified 07/23/24 10:08) Swelling shellfish derived Allergy (Severe, Verified 07/23/24 10:08) unknown peas Adverse Reaction (Uncoded 07/23/24 10:08) Anaphylaxis HPI HPI Comments History of Present Illness Details History of Present Illness - The patient is a 38-year-old male pres enting with acute exacerbation of allergic rhinitis and asthma. - Sudden exacerbation beginning around 4 :00 PM yesterday with severe sneezing, coughing, nasal congestion, runny nose, and eye irritation. - Reported difficulty breathing and slee p disruption due to symptoms. - Treated initially with albuterol, Trel egy, and Flonase without improvement. - Allergy shots introduced a week ago; p revious response was positive. - Describes significant health impact, n ecessitating urgent care visit upon suggestion from acquaintances. - He has been coughing with clear phlegm and has SOB. - He denies fever, chills, CP, abd pain, n/v/d, rashes, muscle aches, lost of taste or smell. - He is a smoker trying to quit on nicot ine patches. foot and leg pain - The patient has plantar fasciitis on t he left. - Pain radiates to the heel and calf, wi th onset approximately two weeks ago. - Presents with variable pain worsening with standing. - Examination and ultrasound ruled out d eep vein thrombosis at the last visit. - Plantar fasciitis suspected but sympto ms include Achilles tendinitis signs. - Conservative management attempted with NSAIDs, with limited relief. - He has been taking Motrin and then Nap roxen with no relief. - He has no known injury or falls. 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 - Denies numbness, tingling, knee pain, hip pain, or back pain. Physical Exam General: Cooperative, healthy appearing, comfortable, no acute distress and well developed Orientation: Patient oriented x3 Head: Normal to inspection Ears: Hearing grossly normal bilaterally. TMs normal bilaterally. Nose: Turbinates are erythematous and not boggy. Face and sinus: Normal facial exam. No sinus tenderness noted. Eyes: Sclera erythematous, conjunctiva pink. Neck: Normal visual inspection and Yes full ROM. No lymphadenopathy noted. Respiratory: Audible wheezing, normal respiratory effort and able to speak in complete sentences. Clear to auscultation bilaterally Cardiovascular: Regular rate and rhythm. Normal S1 and S2 GI: Normal to inspection. Soft to palpation and nontender Skin: No rashes or lesions noted Neuro: Patient oriented x3. Sensation intact Extremities: Ambulates with steady gait. TTP of the arch of the left foot. No swelling noted in the knee. Tenderness in the Achilles tendon area on the left. Normal to inspection, no swelling or bruising noted. TTP of the left calf. Strength is 5/5 on the LE bilaterally DTR are 2+ on the LE bilaterally. Patient was informed and verbally consented to the use of an ambient scribe for clinic note documentation during this visit. [facility] Medical History (Updated 07/23/24 @ 10:49 by Valeria Kahn PA-C) Foot pain, left Nicotine addiction Depression with anxiety GERD (gastroesophageal reflux disease) Back muscle spasm Surgical History History of mandibular surgery Hx of tonsillectomy Family History Father Heart attack Mother Lung disease Maternal Grandmother Diabetes History of multiple strokes Social History Housing: Condominium Alcohol intake: current Patient Tobacco Use Status: Current everyday Tobacco user Cigarettes Per Day: 2 e-Cigarette/Vaping Use: Never Used Second Hand Smoke Exposure: No service: No Current occupational status: employed Current occupation: [employer] Current occupational exposures/hazards: Yes Cognitive needs: No Hearing needs: No Vision needs: No Review of Systems Const All systems reviewed & are unremarkable except as noted in HPI and below Physical Exam Vital Signs: Last Vital Signs Temp 97.7 F 07/29/24 09:57 Pulse 80 07/29/24 09:57 BP 112/80 07/29/24 09:57 Pulse Ox 98 07/29/24 09:57 Oxygen Delivery Method Room Air 07/29/24 09:57 BMI result Body Mass Index 29.0 Office Procedures Nebulizer Treatment Nebulizer Treatment [id number] RX initial, or Nebulizer Subsequent Treatment Office Meds ipratropium 0.5 mg-albuterol 3 mg (2.5 mg base)/3 mL nebulization soln Performing Provider: Huma Domínguez PA-C Performing Location: [facility] Administered by: Huma Domínguez PA-C on 07/29/24 11:10 Dose Route Admin Location Dispensed Lot Number Expiration Date [facility] [employer] 3 mL inhalation 3 mL [id number] 04/24/25 26705-391-06 P Assessment & Plan Assessment & Plan (1) Environmental allergies: Code(s): Z91.09 - Other allergy status, other than to drugs and biological substances Plan: Will give him a treatment in the office today with good effect (2) Leg pain, left: Code(s): M79.605 - Pain in left leg Plan: see below (3) Plantar fasciitis, left: Comment: Patient has not been consistent with his anti-inflammatory regimen and comes wearing flip-flops. Patient is encouraged to wear a lace-up shoe at all times and fill the prescription for Naprosyn and take twice daily. Code(s): M72.2 - Plantar fascial fibromatosis (4) Asthma: Code(s): J45.909 - Unspecified asthma, uncomplicated Plan Plan - Initiate prednisone for acute allergic rhinitis and asthma symptoms, aiming to reduce airway inflammation and control symptoms effectively. - Prescribe Zyrtec-D or Fabiola-D for allergy management, combining antihistamine effects with decongestant properties. - Continue allergy shots with monitoring; validate response to recent administration amidst acute exacerbation. - Refer to orthopedics for comprehensive evaluation of plantar fasciitis and potential Achilles tendinitis; assess for possible physical therapy or footwear adjustments. - Consideration of custom orthotic or shoe supports to alleviate plantar and tendon stress. - Advise NSAIDs as needed for pain, noting the pain's effect on daily function. Orders: Orders AMB Nebulizer Treatment Today J45.909 - Unspecified asthma, uncomplicated Referrals Orthopedics Referral M72.2 - Plantar fascial fibromatosis Medications: New cyclobenzaprine 5 mg PO tid 7 days PRN 21 tabs 0RF Muscle Spasm cetirizine-pseudoephedrine 5-120 mg ER (Allergy Relief-D (cetirizine)) 1 tab PO BID 14 days 28 tabs 0RF ipratropium-albuterol 0.5 mg-3 mg(2.5 mg base)/3 mL 3 mL inhalation ONCE 3 mL 0RF J45.909 - Unspecified asthma, uncomplicated prednisone Day 1&2 take 4 tablets, day 3&4 take 3 tablets, day 5&6 take 2 tablets, days 7-9 take 1 tablet. 10 mg PO DIRECTED 21 ea 0RF meloxicam 15 mg PO DAILY 15 tabs 0RF Coding Level of Care Code Est Pt Level 4 (28946) Diagnoses Environmental allergies Z91.09 Leg pain, left M79.605 Plantar fasciitis, left M72.2 Asthma J45.909 CPT Codes Nebulizer Treatment - Nebulizer Treatment, initial or subsequent: 27177- Nebulizer/MDI RX initial, or Nebulizer Subsequent Treatment ([id number])
[2024-07-29 09:57] VITALS: BP 112/80; PULSE 80; TEMP 36.5; O2SAT 98; BMI 29.0
--- OUTSIDE RECORDS SUMMARY | 2024-07-29 10:29 | XMS_ITS | Clinical Summary ---
Author Organization [facility] Address [address] [place] [address] Care Team Providers Care Examiner Rating Clerk Name Role Phone Deep Hebert Primary Care Provider [phone] Allergies Active Allergy Reactions Criticality Noted Date [...] Td (1 - Tdap) 08/10/2006 Influenza Vaccine (Season Ended) 2024 RSV Ped < 20 months Aged Out No longe r eligible based on patient's age to complete this topic Care Teams Examiner Rating Clerk Relationship Specialty Start Date End Date Deep eHbert [address] [place] [address] PCP - General Family Medicine 05/23/23
== END 2024-07-29 11:01 | disposition home or self-care (01) ==
PROVIDERS: PCP Nurse Practitioner Family; Visit Provider Physician Assistant Medical
DX: M79.605 Pain in left leg (principal); M72.2 Plantar fascial fibromatosis; J45.909 Unspecified asthma, uncomplicated; Z91.09 Other allergy status, other than to drugs and biological substances

== ENCOUNTER 2024-08-11 14:12 | Outpatient (AMB) | payer OTHER, SELFPAY ==
--- NOTE | 2024-08-11 14:13 | A.OFFVIS_ITS ---
Vital Signs 08/11/24 14:14 Height 5 ft 5.5 in Weight 182 lb 2 oz BMI 29.8 BP 154/68 H Blood Pressure Location Rt brachial Position Sitting Pulse 103 H Pulse Source Pulse Oximeter Pulse Oximetry (%) 98 Oxygen Delivery Method Room Air Intake Visit Reasons: asthma Allergies Peanut Butter Allergy (Severe, Verified 08/11/24 14:18) Swelling shellfish derived Allergy (Severe, Verified 08/11/24 14:18) unknown peas Adverse Reaction (Uncoded 08/11/24 14:18) Anaphylaxis HPI HPI asthma: Details: Nii is a pleasant 39 year old male, current 10 pack year smoker, with underlying severe asthma and GERD. He reports poor control of asthma with persistent dry cough, wheezing, dyspnea and chest tightness since October 2023. He has required multiple courses of steroids since then and was recently started on Xolair, after increasing maintenance inhalers with suboptimal effect. He has since been maintained on Trelegy, rarely requiring albuterol MDI. He has had two doses of Xolair, prior IgE >2000, +RAST, receiving 375 mg q 2 weeks. He reports significant improvements after the first two doses, however a week after the first dose he had a sudden onset of worsening respiratory symptoms, ultimately treated with a predisone course by PCP. He does report feeling respiratory symptoms are the best they have been controlled in the last few months to a year and feels less dyspnea, wheezing. He also notes being able to exercise again with minimal symptoms as well as ability to fully inspire. [facility] Medical History (Updated 07/23/24 @ 10:49 by Valeria Kahn PA-C) Foot pain, left Nicotine addiction Depression with anxiety GERD (gastroesophageal reflux disease) Back muscle spasm Surgical History History of mandibular surgery Hx of tonsillectomy Family History Father Heart attack Mother Lung disease Maternal Grandmother Diabetes History of multiple strokes Social History Housing: Condominium Alcohol intake: current Patient Tobacco Use Status: Current everyday Tobacco user Cigarettes Per Day: 2 e-Cigarette/Vaping Use: Never Used Second Hand Smoke Exposure: No service: No Current occupational status: employed Current occupation: [employer] Current occupational exposures/hazards: Yes Cognitive needs: No Hearing needs: No Vision needs: No Review of Systems Const Denies chills, Denies excessive sweating, Denies fever(s), Denies headache(s) and Denies night sweats Eyes Denies dry eyes, Denies irritation and Denies itchy eyes ENT Reports Normal hearing present, Denies headache(s), Denies nasal congestion, Denies nasal discharge, Denies post nasal drip and Denies sore throat Card Denies chest pain, Denies chest pain at rest, Denies chest pain with activity, Denies claudication, Denies leg edema, Denies dyspnea, Denies dyspnea on exertion, Denies orthopnea and Denies paroxysmal nocturnal dyspnea Resp Denies change in phlegm color, Denies chest congestion, Reports cough, Denies hemoptysis, Denies excessive phlegm production, Denies pain on inspiration, Denies pain with cough, Denies dyspnea, Denies dyspnea on exertion, Denies stridor and Denies wheezing Musc Denies myalgias Neuro Reports Normal hearing present and Denies headache(s) Endo Denies excessive sweating Tom/Lymph Denies lymphadenopathy Aller/Immun Denies itchy eyes, Denies seasonal rhinorrhea and Denies wheezing Physical Exam Vital Signs: Last Vital Signs Pulse 103 H 08/11/24 14:14 BP 154/68 H 08/11/24 14:14 Pulse Ox 98 08/11/24 14:14 Oxygen Delivery Method Room Air 08/11/24 14:14 BMI result Body Mass Index 29.8 Const General: cooperative, healthy appearing, comfortable, no acute distress, well developed and alert Orientation/consciousness: patient oriented x3 Limitations: no limitations HEENT Head: Yes normal to inspection, Yes normocephalic and Yes atraumatic Ears: hearing grossly normal bilaterally and external ears normal Eyes General: appearance normal, both eyes and all related structures Eyelids: Yes eyelids normal Sclerae: sclerae normal EOM: EOMs intact bilaterally Neck Neck: Yes normal visual inspection and Yes no lymphadenopathy Lymphatic: no lymphadenopathy noted Chest Chest palpation & inspection: normal inspection of the chest Resp Effort & Inspection: normal respiratory effort, able to speak in complete sentences, no audible wheezes, no cough, no stridor, not tachypneic, no tripod positioning and no use of accessory muscles Auscultation: clear to auscultation bilaterally Cardio Jugular venous distension: no JVD Rate: regular rate Rhythm: regular rhythm Skin Other: warm, dry General skin exam: no rashes or lesions noted Neuro General: patient oriented x3 Cranial nerves: Yes Normal hearing present Cognition (Neuro): normal cognition Gait exam (Neuro): Normal gait present Extrem General: Yes normal to inspection, Yes capillary refill normal, Yes no clubbing, cyanosis or edema and Yes no pedal edema Psych Appearance: grossly normal and well kempt Speech and movement: Normal speech and movement present and Clear speech present Affect: normal affect Attitude: cooperative Thought process: Normal thought process present Thought content: Normal thought content present Insight: Good insight present (Psych) Judgement: Good judgement present (Psych) Assessment & Plan Assessment & Plan (1) Asthma: Code(s): J45.909 - Unspecified asthma, uncomplicated Category: Medical (2) Cough: Code(s): R05.9 - Cough, unspecified Category: Medical (3) Environmental allergies: Code(s): Z91.09 - Other allergy status, other than to drugs and biological substances Category: Medical Plan At this time Nii reports improving control of respiratory symptoms after starting Xolair and Trelegy. Advised to continue and is aware if symptoms become less controlled to call office. We did discuss the need for continued use of all respiratory medications and consistency with Xolair q2 weeks to better assess effectiveness over the next few months. Will also reenter order for PFT as patient previously with persistent symptoms preventing him from completing the test. Smoking cessation reviewed, patient working towards quitting with the use of nicotine replacement therapy. All questions were answered and patient is in agreement of plan. Will follow up in 6-8 weeks or sooner if needed. Orders: Orders PFT pulmonary function test Today J45.909 - Unspecified asthma, uncomplicated Coding Level of Care Code Est Pt Level 4 (40847) Diagnoses Asthma J45.909 Cough R05.9 Environmental allergies Z91.09
[2024-08-11 14:14] VITALS: BP 154/68; PULSE 103; O2SAT 98; BMI 29.8
--- OUTSIDE RECORDS SUMMARY | 2024-08-11 16:25 | XMS_ITS | Clinical Summary ---
Author Organization [facility] Address [address] [place] [address] Care Team Providers Care Manager Department Name Role Phone Deep Hebert Primary Care Provider [phone] Allergies Active Allergy Reactions Criticality Noted Date [...] age to complete this topic Care Teams Manager Department Relationship Specialty Start Date End Date Deep Hebert [address] [place] [address] PCP - General Family Medicine 05/23/23
== END 2024-08-11 14:49 | disposition home or self-care (01) ==
LOC: HO.HPSW 14:13
PROVIDERS: PCP Nurse Practitioner Family; Visit Provider Nurse Practitioner Family
DX: J45.909 Unspecified asthma, uncomplicated (principal); R05.9 Cough, unspecified; Z91.09 Other allergy status, other than to drugs and biological substances
CPT/HCPCS: 99214

== ENCOUNTER → 2024-08-11 14:12 | Outpatient (BNVA) | payer OTHER, SELFPAY | PROVIDERS: PCP Nurse Practitioner Family; Visit Provider Nurse Practitioner Family | DX: J45.50 Severe persistent asthma, uncomplicated (principal); J45.909 Unspecified asthma, uncomplicated; R05.9 Cough, unspecified; Z91.09 Other allergy status, other than to drugs and biological substances; R06.09 Other forms of dyspnea; R06.02 Shortness of breath; Z87.891 Personal history of nicotine dependence | CPT/HCPCS: 99212 ==

== ENCOUNTER 2024-09-25 14:03 | Outpatient (AMB) | payer OTHER, SELFPAY ==
[2024-09-25 14:07] VITALS: BP 110/78; PULSE 98; O2SAT 99; BMI 29.2
--- NOTE | 2024-09-25 14:07 | A.OFFVIS_ITS ---
Vital Signs 09/25/24 14:07 Height 5 ft 5.5 in Weight 178 lb 2 oz BMI 29.2 BP 110/78 Blood Pressure Location Lt brachial Position Sitting Pulse 98 Pulse Source Pulse Oximeter Pulse Oximetry (%) 99 Oxygen Delivery Method Room Air Intake Visit Reasons: asthma Allergies Peanut Butter Allergy (Severe, Verified 09/25/24 14:11) Swelling shellfish derived Allergy (Severe, Verified 09/25/24 14:11) unknown peas Adverse Reaction (Uncoded 09/25/24 14:11) Anaphylaxis HPI HPI asthma: Details: Nii is a pleasant 39 year old male, current 10 pack year smoker, with underlying severe asthma and GERD. He initially reported poor control of asthma with persistent dry cough, wheezing, dyspnea and chest tightness since October 2023. He has required multiple courses of steroids since then and was recently started on Xolair, after increasing maintenance inhalers with suboptimal effect, now received 5 injections to date. He has since been maintained on Trelegy, Singulair, albuterol MDI and DuoNeb. After the first 2 doses patient noticed a significant improvement in respiratory symptoms however for the last 2-3 weeks he reports worsening dry cough, dyspnea and wheezing, attributing to allergies. Of note, he has been without Trelegy for 1 week, has been off Singulair for a few weeks and continues to smoke about 1/4-1/2 pack per day. [facility] Medical History (Updated 07/23/24 @ 10:49 by Valeria Kahn PA-C) Foot pain, left Nicotine addiction Depression with anxiety GERD (gastroesophageal reflux disease) Back muscle spasm Surgical History History of mandibular surgery Hx of tonsillectomy Family History Father Heart attack Mother Lung disease Maternal Grandmother Diabetes History of multiple strokes Social History (Updated 09/25/24 @ 14:13 by Betty Hahn [facility]) Housing: Condominium Alcohol intake: current Patient Tobacco Use Status: Current everyday Tobacco user Cigarettes Per Day: 5 e-Cigarette/Vaping Use: Never Used Second Hand Smoke Exposure: No service: No Current occupational status: employed Current occupation: [employer] Current occupational exposures/hazards: Yes Cognitive needs: No Hearing needs: No Vision needs: No Review of Systems Const Denies chills, Denies excessive sweating, Denies fever(s), Denies headache(s) and Denies night sweats Eyes Denies dry eyes, Denies irritation and Denies itchy eyes ENT Reports Normal hearing present, Denies headache(s), Reports nasal congestion, Denies nasal discharge, Denies post nasal drip and Denies sore throat Card Denies chest pain, Denies chest pain at rest, Denies chest pain with activity, Denies claudication, Denies leg edema, Reports dyspnea on exertion, Denies orthopnea and Denies paroxysmal nocturnal dyspnea Resp Denies change in phlegm color, Denies chest congestion, Reports cough, Denies hemoptysis, Denies excessive phlegm production, Denies pain on inspiration, Denies pain with cough, Reports dyspnea on exertion, Denies stridor and Reports wheezing Musc Denies myalgias Neuro Reports Normal hearing present and Denies headache(s) Endo Denies excessive sweating Tom/Lymph Denies lymphadenopathy Aller/Immun Denies itchy eyes, Denies seasonal rhinorrhea and Reports wheezing Physical Exam Vital Signs: Last Vital Signs Pulse 98 09/25/24 14:07 BP 110/78 09/25/24 14:07 Pulse Ox 99 09/25/24 14:07 Oxygen Delivery Method Room Air 09/25/24 14:07 BMI result Body Mass Index 29.2 Const General: cooperative, healthy appearing, comfortable, no acute distress, well developed and alert Orientation/consciousness: patient oriented x3 Limitations: no limitations HEENT Head: Yes normal to inspection, Yes normocephalic and Yes atraumatic Ears: hearing grossly normal bilaterally and external ears normal Eyes General: appearance normal, both eyes and all related structures Eyelids: Yes eyelids normal Sclerae: sclerae normal EOM: EOMs intact bilaterally Neck Neck: Yes normal visual inspection and Yes no lymphadenopathy Lymphatic: no lymphadenopathy noted Chest Chest palpation & inspection: normal inspection of the chest Resp Effort & Inspection: normal respiratory effort, able to speak in complete sentences, no audible wheezes, no cough, no stridor, not tachypneic, no tripod positioning and no use of accessory muscles Auscultation: clear to auscultation bilaterally Cardio Jugular venous distension: no JVD Rate: regular rate Rhythm: regular rhythm Skin Other: warm, dry General skin exam: no rashes or lesions noted Neuro General: patient oriented x3 Cranial nerves: Yes Normal hearing present Cognition (Neuro): normal cognition Gait exam (Neuro): Normal gait present Extrem General: Yes normal to inspection, Yes capillary refill normal, Yes no clubbing, cyanosis or edema and Yes no pedal edema Psych Appearance: grossly normal and well kempt Speech and movement: Normal speech and movement present and Clear speech present Affect: normal affect Attitude: cooperative Thought process: Normal thought process present Thought content: Normal thought content present Insight: Good insight present (Psych) Judgement: Good judgement present (Psych) Assessment & Plan Assessment & Plan (1) Asthma: Code(s): J45.909 - Unspecified asthma, uncomplicated Category: Medical (2) Cough: Code(s): R05.9 - Cough, unspecified Category: Medical (3) Environmental allergies: Code(s): Z91.09 - Other allergy status, other than to drugs and biological substances Category: Medical Plan Discussed importance of compliance with all respiratory medications while on Xolair. Will refill Trelegy, Singulair, albuterol MDI and DuoNeb. Reviewed smoking cessation and patient agreeable to restart nicotine replacement therapy. Encouraged patient to increase use of nebulized therapy if no improvements prednisone prescription given. He is aware to call if symptoms do not improve or seek emergent care if symptoms worsen. PFT order placed at the last visit and is scheduled for next month. All questions were answered and patient is in agreement of plan. Will follow up in 6-8 weeks or sooner if needed. Medications: New montelukast (Singulair) 10 mg PO BEDTIME 30 tabs 3RF nicotine (polacrilex) 2 mg buccal Q2H 100 ea 0RF prednisone 40 mg (2 x 20 mg) PO DAILY 10 tabs 0RF Refilled ipratropium-albuterol 0.5 mg-3 mg(2.5 mg base)/3 mL 3 mL inhalation Q6-8H PRN 90 mL 3RF for wheezing albuterol sulfate 90 mcg/actuation (Ventolin HFA) 2 puffs inhalation Q6H PRN 1 ea 3RF shortness of breath or wheezing Z87.09 - Personal history of other diseases of the respiratory system [id number] 200-62.5-25 mcg (Trelegy Ellipta) 1 ea inhalation DAILY 60 ea 3RF Coding Level of Care Code Est Pt Level 4 (99632) Diagnoses Asthma J45.909 Cough R05.9 Environmental allergies Z91.09
--- OUTSIDE RECORDS SUMMARY | 2024-09-25 14:07 | XMS_ITS | Clinical Summary ---
Author Organization [facility] Address [address] [place] [address] Care Team Providers Care Field Marketing Director Name Role Phone Deep Hebert NP Primary [...] 5 Years) and At-Risk Patients (6 to 49 Years) (1 of 2 - PCV) 08/10/2006 Cholesterol Screening (Lipid Panel) 03/31/2023 HIV Screening 03/31/2023 Hepatitis C Screening 03/31/2023 Social Influencers of Health Screening 03/31/2023 COVID-19 Vaccine (1 - 2023-2 5 season) 2023 Depression Screening 02/26/2024 Influenza Vaccine (#1) 2024 HIB Vaccines Aged Out No longer [...] age to complete this topic Care Teams Field Marketing Director Relationship Specialty Start Date End Date Deep Hebert NP [address] [place], [place] PCP - General 05/23/23
--- OUTSIDE RECORDS SUMMARY | 2024-09-25 14:07 | XMS_ITS ---
Author Name [facility] Organization Unknown Results Test Name/Text Value Interpretation Date Range Source CHLORIDE SERPL SCNC 103.0 mmol/L Normal 11/26/2023 98 - 107 [facility] POTASSIUM [facility]PL SCNC 4.1 mmol/L Normal 11/26/2023 3.5 - 5.1 [facility] BUN SERPL MCNC 14.0 mg/dL Normal 11/26/2023 9 - 20 [facility] SODIUM SERPL SCNC 136.0 mmol/L Normal 11/26/2023 135 - 14 5 [facility] CALCIUM SERPL MCNC 9.7 mg/dL Normal 11/26/2023 8.4 - 10.2 [facility] ANION GAP SERPL SCNC 9.0 mmol/L Normal 11/26/2023 5 - 14 [facility] CREAT SERPL MCNC 1.1 mg/dL Normal 11/26/2023 0.7 - 1.3 [facility] GLUCOSE SERPL MCNC 86.0 mg/dL Normal 11/26/2023 70 - 199 [facility] Glomerular filtration rate/1.73 sq M. predicted 89.0 Normal 11/26/2023 60 - [facility] HCO3 SER SCNC 24.0 mmol/L Normal 11/26/2023 24 - 32 [facility] MONOCYTES NFR BLD AUTO 5.9 % Normal 11/26/2023 2 - 12 [facility] EOSINOPHIL NO. BLD AUTO 1.0 K/uL Above high normal 11/26/2023 0 - 0.5 [facility] PMV BLD AUTO 9.3 fL Normal 11/26/2023 7.4 - 11.4 [facility] LYMPHOCYTES NO. BLD AUTO 2.6 K/uL Normal 11/26/2023 1 - 3.2 [facility] MCV RBC AUTO 92.1 fL Normal 11/26/2023 78 - 100 [facility] EOSINOPHIL NFR BLD AUTO 9.8 % Above high normal 11/26/2023 0 - 6 [facility] NEUTROPHILS NFR BLD AUTO 58.0 % Normal 11/26/2023 44 - 74 [facility] PLATELET NO. BLD AUTO 249.0 K/uL Normal 11/26/2023 150 - 450 [facility] BASOPHILS IN BLOOD BY AUTOMATED COUNT 0.1 K/uL Normal 11/26/2023 0 - 0.2 [facility] MCH RBC QN AUTO 31.6 pg Normal 11/26/2023 25 - 33 [facility] RDW RBC AUTO RTO 12.7 % Normal 11/26/2023 12.1 - 17.7 [facility] LYMPHOCYTES NFR BLD AUTO 25.3 % Normal 11/26/2023 20 - 48 [facility] MCHC RBC AUTO MCNC 34.3 g/dL Normal 11/26/2023 32 - 36 [facility] NEUTROPHILS NO. BLD AUTO 6.0 K/uL Normal 11/26/2023 1.8 - 7.8 [facility] RBC NO. BLD AUTO 4.84 M/uL Normal 11/26/2023 4.7 - 6 [facility] HCT VFR BLD AUTO 44.6 % Normal 11/26/2023 40 - 54 [facility] BASOPHILS NFR BLD AUTO 0.8 % Normal 11/26/2023 0 - 2 [facility] IMMATURE GRANULOCYTE, ABSOLUTE 0.02 k/uL Normal 11/26/2023 - 0.1 [facility] MONOCYTES NO. BLD AUTO 0.6 K/uL Normal 11/26/2023 0 - 0.8 [facility] NUCLEATED RBC 0.0 % Normal 11/26/2023 0 - 1 [facility] IMMATURE GRANULOCYTE, PERCENT 0.2 % Normal 11/26/2023 0 - 1 [facility] WBC NO. BLD AUTO 10.3 K/uL Normal 11/26/2023 4 - 10.5 [facility] HGB BLD MCNC 15.3 g/dL Normal 11/26/2023 13.5 - 18 [facility] H FLUBV RNA Nph Ql MATTIE+non-probe NEGATIVE Normal 11/26/2023 [facility] Service Cmaz XXX-Imp Cepheid GeneXpert (RT-PCR) [facility] Normal 11/26/2023 [facility] FLUAV RNA Nph Ql MATTIE+non-probe NEGATIVE Normal 11/26/2023 [facility] RSV RNA Nph Ql MATTIE+non-probe NEGATIVE Normal 11/26/2023 [facility] SPECIMEN SOURCE XXX NASOPHARYNGEAL Normal 11/26/2023 [facility] RSV RNA Nph Ql MATTIE+non-probe NEGATIVE Normal 07/10/2023 [facility] FLUAV RNA Nph Ql MATTIE+non-probe NEGATIVE Normal 07/10/2023 [facility] FLUBV RNA Nph Ql MATTIE+non-probe NEGATIVE Normal 07/10/2023 [facility] Service [facility] XXX-Imp Cepheid GeneXpert (RT-PCR) [facility] Normal 07/10/2023 [facility] SPECIMEN SOURCE XXX NASOPHARYNGEAL Normal 07/10/2023 [facility] NEUTROPHILS NO. BLD AUTO 5.2 K/uL Normal 05/23/2023 1.8 - 7.8 [facility] MONOCYTES NFR BLD AUTO 6.5 % Normal 05/23/2023 2 - 12 [facility] PLATELET NO. BLD AUTO 257.0 K/uL Normal 05/23/2023 150 - 450 [facility] EOSINOPHIL NO. BLD AUTO 0.1 K/uL Normal 05/23/2023 0 - 0.5 [facility] LYMPHOCYTES NFR BLD AUTO 30.3 % Normal 05/23/2023 20 - 48 [facility] WBC NO. BLD AUTO 8.6 K/uL Normal 05/23/2023 4 - 10.5 CT [facility] MCH RBC QN AUTO 31.0 pg Normal 05/23/2023 25 - 33 [facility] RBC NO. BLD AUTO 4.8 M/uL Normal 05/23/2023 4.7 - 6 [facility] IMMATURE GRANULOCYTE, ABSOLUTE 0.03 k/uL Normal 05/23/2023 - 0.1 [facility] HGB BLD MCNC 14.9 g/dL Normal 05/23/2023 13.5 - 18 [facility] EOSINOPHIL NFR BLD AUTO 1.5 % Normal 05/23/2023 0 - 6 [facility] LYMPHOCYTES NO. BLD AUTO 2.6 K/uL Normal 05/23/2023 1 - 3.2 [facility] BASOPHILS NFR BLD AUTO 0.7 % Normal 05/23/2023 0 - 2 [facility] MCHC RBC AUTO MCNC 34.5 g/dL Normal 05/23/2023 32 - 36 [facility] PMV BLD AUTO 9.4 fL Normal 05/23/2023 7.4 - 11.4 [facility] MCV RBC AUTO 90.0 fL Normal 05/23/2023 78 - 100 [facility] MONOCYTES NO. BLD AUTO 0.6 K/uL Normal 05/23/2023 0 - 0.8 [facility] IMMATURE GRANULOCYTE, PERCENT 0.3 % Normal 05/23/2023 0 - 1 [facility] RDW RBC AUTO RTO 12.5 % Normal 05/23/2023 12.1 - 17.7 [facility] HCT VFR BLD AUTO 43.2 % Normal 05/23/2023 40 - 54 [facility] NEUTROPHILS NFR BLD AUTO 60.7 % Normal 05/23/2023 44 - 74 [facility] BASOPHILS IN BLOOD BY AUTOMATED COUNT 0.1 K/uL Normal 05/23/2023 0 - 0.2 [facility] NUCLEATED RBC 0.0 % Normal 05/23/2023 0 - 1 [facility] RSV RNA Nph Ql MATTIE+non-probe NEGATIVE Normal 05/23/2023 [facility] FLUAV RNA Nph Ql MATTIE+non-probe NEGATIVE Normal 05/23/2023 [facility] Service [facility] XXX-Imp Cepheid GeneXpert (RT-PCR) [facility] Normal 05/23/2023 [facility] FLUBV RNA Nph Ql MATTIE+non-probe NEGATIVE Normal 05/23/2023 [facility] SPECIMEN SOURCE XXX NASOPHARYNGEAL Normal 05/23/2023 [facility] BUN SERPL MCNC 16.0 mg/dL Normal 05/23/2023 9 - 20 [facility] HCO3 SER SCNC 25.0 mmol/L Normal 05/23/2023 24 - 32 CTT [facility] POTASSIUM SERPL SCNC 3.7 mmol/L Normal 05/23/2023 3.5 - 5.1 [facility] CALCIUM SERPL MCNC 9.3 mg/dL Normal 05/23/2023 8.4 - 10.2 [facility] CREAT SERPL MCNC 1.0 mg/dL Normal 05/23/2023 0.7 - 1.3 [facility] SODIUM SERPL SCNC 137.0 mmol/L Normal 05/23/2023 135 - 14 5 [facility] CHLORIDE SERPL SCNC 103.0 mmol/L Normal 05/23/2023 98 - 107 [facility] Glomerular filtration rate/1.73 sq M. predicted 101.0 Normal 05/23/2023 60 - [facility] GLUCOSE SERPL MCNC 154.0 mg/dL Normal 05/23/2023 70 - 199 [facility] ANION GAP SERPL SCNC 9.0 mmol/L Normal 05/23/2023 5 - 14 [facility] S pyo Ag Throat Ql IA rapid NEGATIVE Normal 02/11/2023 - [facility] FLUAV RNA Nph Ql MATTIE+non-probe NEGATIVE Normal 02/11/2023 [facility] RSV RNA Nph Ql MATTIE+non-probe NEGATIVE Normal 02/11/2023 [facility] FLUBV RNA Nph Ql MATTIE+non-probe NEGATIVE Normal 02/11/2023 [facility] Service Cmmt XXX-Imp Cepheid GeneXpert (RT-PCR) [facility] Normal 02/11/2023 [facility] SPECIMEN SOURCE XXX NASOPHARYNGEAL Normal 02/11/2023 [facility] History of Medication Use Medication Directions Dispensed Refills Start Date End Date Stat predniSONE (DELTASONE) tablet 20 mg Take 3 tablets (60 mg total) by mouth daily for 1 day, THEN 2 tablets (40 mg total) daily for 2 days, THEN 1 tablet (20 mg total) daily for 2 days. 11/27/2023 12/03/2023 active ipratropium-albute rol (DUO-NEB) nebulizer solution 3 mL 3 mL, Nebulization, Every 20 minutes, First dose on Sat11/26/23 at 1845, For 2 doses 05/23/2023 11/26/2023 completed predniSONE (DELTASONE) tablet 10 mg Prednisone 10 mg tablets - Disp. #40 - Si tabs daily x 3 days; 4 tabs daily x 3 days; 2 tabs daily x 3 days; 1 tab daily x 3 days 05/23/2023 11/26/2023 active predniSONE (DELTASONE) tablet 60 mg 60 mg, Oral, Once, On Sat05/23/23 at 1145, For 1 dose 05/23/2023 05/23/2023 completed albuterol 108 (90 Base) MCG/ACT inhaler Inhale into the lungs every 6 (six) hours as needed for wheezing. active Allergies Allergen Reaction Severity Comment Documented Date Source Statu s [place] 05/23/2023 [facility] active [place] [facility] Problems Problem Status Onset Date Problem Type Date of Resolution Source Asthma exacerbation active EncounterDiagnosisAc t [facility] Encounters Encounter Type Encounter Reason Primary Diagnosis Location Date Emergency Unspecified asthma with (acute) exacerbation Unspecified asthma with (acute) exacerbation [facility] 11/26/2023 Emergency Acute sinusitis, unspecified Acute sinusitis, unspecified [facility] 07/10/2023 Emergency Acute upper respiratory infection, unspecified Acute upper respiratory infection, unspecified [facility] 05/23/2023 Emergency Acute pharyngitis, unspecified Acute pharyngitis, unspecified [facility] 02/11/2023 Care Team Organization Name Specialty Phone Email Start Date End Da te [facility] Primary Care [facility] 02/15/2023 09/08/2024 [facility] 02/11/202301/25
--- OUTSIDE RECORDS SUMMARY | 2024-09-25 14:07 | XMS_ITS | Clinical Summary ---
Author Organization [facility] Address [address] [place] [address] Care Team Providers Care Administrative Analyst Name Role Phone Deep Hebert Primary Care Provider [phone] Allergies Active Allergy Reactions Criticality Noted Date [...] 109 11/26/2023 6:31 PM EDT Temperature 36.7 C (98.1 F) 11/26/2023 6:31 PM EDT Respiratory Rate 20 11/26/2023 6:31 PM EDT [...] (1 - Tdap) 08/10/2006 Influenza Vaccine (#1) 2024 RSV Ped < 20 months Aged Out No longe r eligible based on patient's age to complete this topic Care Teams Administrative Analyst Relationship Specialty Start Date End Date Deep Hebert [address] [place] [address] PCP - General Family Medicine 05/23/23
== END 2024-09-25 14:34 | disposition home or self-care (01) ==
LOC: HO.HPSW 14:05
PROVIDERS: PCP Nurse Practitioner Family; Visit Provider Nurse Practitioner Family
DX: J45.909 Unspecified asthma, uncomplicated (principal); R05.9 Cough, unspecified; Z91.09 Other allergy status, other than to drugs and biological substances
CPT/HCPCS: 99214

== ENCOUNTER → 2024-09-25 14:03 | Outpatient (BNVA) | payer OTHER, SELFPAY | PROVIDERS: PCP Nurse Practitioner Family; Visit Provider Nurse Practitioner Family | DX: J45.50 Severe persistent asthma, uncomplicated (principal); K21.9 Gastro-esophageal reflux disease without esophagitis; R05.9 Cough, unspecified; Z91.09 Other allergy status, other than to drugs and biological substances; F17.210 Nicotine dependence, cigarettes, uncomplicated | CPT/HCPCS: 99212 ==

== ENCOUNTER 2024-10-21 09:31 | Outpatient (AMB) | payer OTHER, SELFPAY ==
[2024-10-21 10:06] VITALS: BP 114/82; PULSE 96; TEMP 36.5; O2SAT 97; BMI 28.7
--- NOTE | 2024-10-21 10:06 | MHC.OFFWIV ---
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 Intake Note: pt presents with chest congestion, SOB, last nebulizer tx at 8am today Patient Tobacco Use Status: Current everyday Tobacco user Allergies Peanut Butter Allergy (Severe, Verified 10/21/24 10:09) Swelling shellfish derived Allergy (Severe, Verified 10/21/24 10:09) unknown peas Adverse Reaction (Uncoded 09/25/24 14:11) Anaphylaxis Do you need a note to return to daycare/school/sports/work: Yes HPI HPI Comments History of Present Illness Details History of Present Illness - The patient is a 39-year-old male presenting with symptoms of an upper respiratory infection and asthma exacerbation. - Reports waking up with shaking and a cough for the past three days. - Has a history of asthma with shortness of breath but no wheezing. - Compliant with asthma medications, no changes in regimen. - Experienced hot and cold sensations yesterday, denies fever. - No sick contacts at home, no known COVID-19 exposure. - Denies ear pain, sinus pain. Physical Exam General: Cooperative, healthy appearing, comfortable, no acute distress and well developed Orientation: Patient oriented x3 Limitations: No limitations Head: Normal to inspection Ears: Hearing grossly normal bilaterally, EAC normal bilaterally, TMs with fluid but no infection bilaterally Nose: Normal External nose present, congestion noted Face and sinus: Normal facial exam, no sinus pain Mouth: Normal oral mucosa, posterior oropharynx erythema Eyes: Appearance normal, both eyes and all related structures Neck: Normal visual inspection and Yes full ROM Respiratory: Normal respiratory effort and able to speak in complete sentences, clear to auscultation throughout Cardiac: Regular rate and rhythm, normal S1 and S2 Skin: No rashes or lesions noted Neuro: Patient oriented x3 Extremities: Normal to inspection [facility] Medical History (Updated 10/21/24 @ 10:36 by Marilyn Bergeron PA-C) Foot pain, left Nicotine addiction Depression with anxiety GERD (gastroesophageal reflux disease) Back muscle spasm Surgical History History of mandibular surgery Hx of tonsillectomy Family History Father Heart attack Mother Lung disease Maternal Grandmother Diabetes History of multiple strokes Social History (Updated 09/25/24 @ 14:13 by Betty Hahn [facility]) Housing: [facility] Alcohol intake: current Patient Tobacco Use Status: Current everyday Tobacco user Cigarettes Per Day: 5 e-Cigarette/Vaping Use: Never Used Second Hand Smoke Exposure: No service: No Current occupational status: employed Current occupation: [employer] Current occupational exposures/hazards: Yes Cognitive needs: No Hearing needs: No Vision needs: No Review of Systems Const All systems reviewed & are unremarkable except as noted in HPI and below Physical Exam Vital Signs: Last Vital Signs Temp 97.7 F 10/21/24 10:06 Pulse 96 10/21/24 10:06 BP 114/82 10/21/24 10:06 Pulse Ox 97 10/21/24 10:06 Oxygen Delivery Method Room Air 10/21/24 10:06 BMI result Body Mass Index 28.7 Assessment & Plan Assessment & Plan (1) URI, acute: Code(s): J06.9 - Acute upper respiratory infection, unspecified Plan: Patient was informed and verbally consented to the use of an ambient scribe for clinic note documentation during this visit. 1. Asthma - VSS, pt with significant nasal congestion, physical exam unremarkable except for posterior oropharynx erythema - Continue current asthma medications without changes. - Initiate a six-day course of a Solu-Medrol pack to manage exacerbation symptoms. 2. Upper Respiratory Infection - Conducted a respiratory pathogen panel to rule out viral processes. - Recommended hot showers and decongestants like Fabiola-D for symptom relief. (2) Asthma exacerbation: Code(s): J45.901 - Unspecified asthma with (acute) exacerbation Qualifiers: Asthma severity: mild Asthma persistence: persistent Qualified Code(s): J45.31 - Mild persistent asthma with (acute) exacerbation Plan: As above Orders: Orders Resp Pathogen Panel - [facility] Today J06.9 - Acute upper respiratory infection, unspecified Medications: New methylprednisolone PO PER PKG DIR for 6 days 21 ea 0RF Coding Level of Care Code New Pt Level 3 (46353) Diagnoses URI, acute J06.9 Mild persistent asthma with exacerbation J45.31 Asthma severity: mild Asthma persistence: persistent
--- OUTSIDE RECORDS SUMMARY | 2024-10-21 10:06 | XMS_ITS | Clinical Summary ---
Author Organization [facility] Address [address] [place] [address] Care Team Providers Care Clay Burner Name Role Phone Deep Hebert Primary Care Provider [phone] Allergies Active Allergy Reactions Criticality Noted Date [...] age to complete this topic Care Teams Clay Burner Relationship Specialty Start Date End Date Deep Hebert [address] [place] [address] PCP - General Family Medicine 05/23/23
--- OUTSIDE RECORDS SUMMARY | 2024-10-21 10:07 | XMS_ITS | Clinical Summary ---
Author Organization [employer] [facility] ity Address [address] [place] [address] Care Team Providers Care Delivery Recruiter Name Role Phone Deep Hebert NP Primary Care Provider [phone] Medical History Medical History Date Comments Seasonal [...] age to complete this topic Care Teams Delivery Recruiter Relationship Specialty Start Date End Date Deep Hebert NP [address] [place], [place] PCP - General 05/23/23
== END 2024-10-21 10:39 | disposition home or self-care (01) ==
PROVIDERS: Visit Provider Physician Assistant
DX: J06.9 Acute upper respiratory infection, unspecified (principal); J45.31 Mild persistent asthma with (acute) exacerbation

== ENCOUNTER 2024-10-21 09:31 | Outpatient (REF) | payer OTHER, SELFPAY ==
[2024-10-21 16:01] LABS: Chlamydia pneumoniae PCR Not Detected (Not Detect.); Coronavirus 229E PCR Not Detected (Not Detect.); Coronavirus HKU1 PCR Not Detected (Not Detect.); Coronavirus NL63 PCR Not Detected (Not Detect.); Coronavirus OC43 PCR Not Detected (Not Detect.); RSV PCR Not Detected (Not Detect.); Rhino/Enterovirus PCR Not Detected (Not Detect.)
[2024-10-21 16:14] LABS: Influenza A H1 PCR Not Detected (Not Detect.); Influenza A H1-2009 PCR Not Detected (Not Detect.); Influenza A H3 PCR Not Detected (Not Detect.); SARS-CoV-2 PCR Not Detected (Not Detect.)
== END 2024-10-21 09:32 | disposition home or self-care (01) ==
LOC: HO.LAB 09:31
PROVIDERS: PCP Physician Assistant; Visit Provider Physician Assistant
DX: J45.31 Mild persistent asthma with (acute) exacerbation (principal); J06.9 Acute upper respiratory infection, unspecified; F17.210 Nicotine dependence, cigarettes, uncomplicated; Z79.899 Other long term (current) drug therapy
CPT/HCPCS: 87633; 99212

== ENCOUNTER 2024-11-03 09:13 | Outpatient (REF) | payer OTHER, SELFPAY ==
--- NOTE | 2024-11-03 09:29 | PFT_ITS ---
Indication: Asthma Spirometry FEV1 to FVC 79%; FEV1 4.46 L; FVC 5.63 L. A trend response to bronchodilators noted. Lung Volumes Total lung capacity 118% predicted; residual volume 117% predicted Diffusion Capacity DLCO 121% predicted Comparisons None Interpretation No obstructive nor restrictive ventilatory defects identified. The patient does have a trend response to bronchodilators noted. Lung volumes with a trend of hyperinflation and a trend of air trapping likely secondary to small airways disease. The patient does have an elevated diffusing capacity likely secondary to exogenous exposure carbon monoxide which could be from smoking. If asthma is in the differential methacholine challenge may be helpful for assessing for hyperreactive airways. Otherwise clinical correlation warranted. MTDD
[2024-11-03 10:25] VITALS: PULSE 95; O2SAT 98
--- OUTSIDE RECORDS SUMMARY | 2024-11-03 10:40 | XMS_ITS | Clinical Summary ---
Author Organization [facility] ity Address [address] [place] [address] Care Team Providers Care Neurodiagnostic Tech Name Role Phone Deep Hebert NP Primary [...] 03/31/2023 Social Influencers of Health Screening 03/31/2023 Depression Screening 02/26/2024 COVID-19 Vaccine (1 - 2023-2 5 season) 2024 Influenza Vaccine (#1) 2024 HIB Vaccines Aged [...] age to complete this topic Care Teams Neurodiagnostic Tech Relationship Specialty Start Date End Date Deep Hebert NP [address] [place], [place] PCP - General 05/23/23
--- OUTSIDE RECORDS SUMMARY | 2024-11-03 10:40 | XMS_ITS | Clinical Summary ---
Author Organization [facility] Address [address] [place] [address] Care Team Providers Care Computer Analyst Name Role Phone Deep Hebert Primary Care Provider [phone] Allergies Active Allergy Reactions Criticality Noted Date [...] age to complete this topic Care Teams Computer Analyst Relationship Specialty Start Date End Date Deep Hebert [address] [place] [address] PCP - General Family Medicine 05/23/23
== END 2024-11-03 09:14 | disposition home or self-care (01) ==
LOC: HO.RESP 09:13
PROVIDERS: PCP Nurse Practitioner Family; Visit Provider Nurse Practitioner Family
DX: J45.909 Unspecified asthma, uncomplicated (principal); F17.210 Nicotine dependence, cigarettes, uncomplicated
CPT/HCPCS: 94010; 94727; 94729

== ENCOUNTER → 2024-11-03 09:29 | Outpatient (BNV) | payer OTHER, SELFPAY | PROVIDERS: PCP Nurse Practitioner Family; Visit Provider Hospitalist | DX: J45.909 Unspecified asthma, uncomplicated (principal) | CPT/HCPCS: 94060; 94727; 94729 ==

== ENCOUNTER 2024-11-19 11:21 | Outpatient (AMB) | payer OTHER, SELFPAY ==
[2024-11-19 11:24] VITALS: BP 114/68; PULSE 113; TEMP 36.7; O2SAT 97
--- NOTE | 2024-11-19 11:24 | AM.OFFWIN_ITS ---
Intake Vital Signs 11/19/24 11:24 Height 5 ft 5.5 in BP 114/68 Blood Pressure Location Lt brachial Position Sitting Pulse 113 H Pulse Source Pulse Oximeter Temp 98.0 F Temp Source Oral Pulse Oximetry (%) 97 Oxygen Delivery Method Room Air Intake Visit Reasons: ep cough Intake Note: pt presents with unresolved persistent cough, unresolved heartburn, unresolved SOB and wheezing Patient Tobacco Use Status: Current everyday Tobacco user Allergies Peanut Butter Allergy (Severe, Verified 11/19/24 11:28) Swelling shellfish derived Allergy (Severe, Verified 11/19/24 11:28) unknown peas Adverse Reaction (Uncoded 09/25/24 14:11) Anaphylaxis Do you need a note to return to daycare/school/sports/work: Yes HPI HPI Comments History of Present Illness Details 39 y/o Male patient who presents to the walk in clinic with c/o cough, SOB, wheezing and Fatigue. He is Asthmatic and uses Albuterol Neb at home with Good relief, but lasting 2-3 hours then symptoms return. He is also on Trelegy once daily and Xolair Injections Biweekly. He is being managed by Pulmonology and he was last seen 09/2024. He has been seen here multipe Times this year for Asthma Exacerbation. Today reports none of his medications are working - he has been over using his Neb and Albuterol rescue inhaler every hour. He was seen at [facility] ED Yesterday for SOB, Cough and wheezing. He tested Positive for COVID-19 infection. His Vitals, Labs and Chest Xray unremarkable. He was discharged home on Steroid Taper and Paxlovid. Reports not taking Paxlovid due to side effects (he felt sick). Pt is frustrated because PCP only gave him 4 days of FMLA and he belives his condition warrants more time, today asking for someone who could his new FMLA paperwork. He has been trying to see PCP (who is on Vacation) and now has an appointment in 11/2024. Pt worried he will loose his Job for missing Work too much - Stressed and anxious that he will loose his house if he can't pay Mortgage and unable to pay most of his Bills. Pt does have Anxiety diagnosis and currently he appears to be having Panic attack symptoms more so than Respiratoty. [facility] Medical History (Updated 10/21/24 @ 10:36 by Marilyn Bergeron PA-C) Foot pain, left Nicotine addiction Depression with anxiety GERD (gastroesophageal reflux disease) Back muscle spasm Surgical History History of mandibular surgery Hx of tonsillectomy Family History Father Heart attack Mother Lung disease Maternal Grandmother Diabetes History of multiple strokes Social History (Updated 09/25/24 @ 14:13 by Betty Hahn [facility]) [facility] Alcohol intake: current Patient Tobacco Use Status: Current everyday Tobacco user Cigarettes Per Day: 5 e-Cigarette/Vaping Use: Never Used Second Hand Smoke Exposure: No service: No Current occupational status: employed Current occupation: [employer] Current occupational exposures/hazards: Yes Cognitive needs: No Hearing needs: No Vision needs: No Review of Systems Const All systems reviewed & are unremarkable except as noted in HPI and below Physical Exam Vital Signs: Last Vital Signs Temp 98.0 F 11/19/24 11:24 Pulse 113 H 11/19/24 11:24 BP 114/68 11/19/24 11:24 Pulse Ox 97 11/19/24 11:24 Oxygen Delivery Method Room Air 11/19/24 11:24 Const Other: Patient appears very anxious but stable and not in distress. He is able to speak in complete sentences. General: no acute distress and anxious Nutritional Appearance: well nourished Orientation/consciousness: patient oriented x3 HEENT Head: Yes normocephalic Ears: external ears normal and TM abnormal with fluid behind the TM bilateral General nose exam: Normal external nose present Mouth: moist mucous membranes Throat: Yes uvula midline Resp Effort & Inspection: normal respiratory effort, able to speak in complete sentences, no audible wheezes and Actively coughing Auscultation: clear to auscultation bilaterally, no crackles, no rales, no rhonchi and no wheezes Cardio Heart sounds: S1 normal heart sound present and S2 normal heart sound present Neuro General: patient oriented x3, gait normal and moves all extremities Psych Speech and movement: Normal speech and movement present Affect: Anxious affect present Assessment & Plan Assessment & Plan (1) Asthma exacerbation: Code(s): J45.901 - Unspecified asthma with (acute) exacerbation Qualifiers: Asthma severity: mild Asthma persistence: persistent Qualified Code(s): J45.31 - Mild persistent asthma with (acute) exacerbation Plan: VSS B/L CTA. He is having Acute exacerbation of Asthma symptoms due to recent COVID infection Pt has chronic h/o cigarette smoking - quit 6 days ago. He declined using Patch or Nicotine Gums. No need for another chest Xray today - yesterday's was negative per Patient report. Continue on prescribed medications and f/u with both Pulmonology and PCP as scheduled. RTC or ED for severe symptoms. Coding Level of Care Code Est Pt Level 4 (80208) Diagnoses Mild persistent asthma with exacerbation J45.31 Asthma severity: mild Asthma persistence: persistent Time Spent (min) 20
== END 2024-11-19 12:01 | disposition home or self-care (01) ==
PROVIDERS: PCP Nurse Practitioner Family; Visit Provider Nurse Practitioner Family
DX: J45.31 Mild persistent asthma with (acute) exacerbation (principal)

== ENCOUNTER → 2024-11-19 11:21 | Outpatient (BNVA) | payer OTHER, SELFPAY | PROVIDERS: PCP Nurse Practitioner Family; Visit Provider Nurse Practitioner Family | DX: J45.31 Mild persistent asthma with (acute) exacerbation (principal); Z87.891 Personal history of nicotine dependence | CPT/HCPCS: 99212 ==

== ENCOUNTER 2024-11-25 10:55 | Outpatient (AMB) | payer OTHER, SELFPAY ==
--- NOTE | 2024-11-25 09:40 | MHC.OFFVIS ---
Vital Signs 11/25/24 10:58 Height 5 ft 5.5 in Weight 178 lb BMI 29.2 BP 116/78 Blood Pressure Location Lt brachial Position Sitting Pulse 93 Pulse Source Pulse Oximeter Pulse Oximetry (%) 98 Oxygen Delivery Method Room Air Intake Visit Reasons: Asthma Allergies Peanut Butter Allergy (Severe, Verified 11/25/24 11:01) Swelling shellfish derived Allergy (Severe, Verified 11/25/24 11:01) unknown peas Adverse Reaction (Uncoded 11/25/24 11:01) Anaphylaxis HPI HPI Asthma: Details: Nii is a pleasant 39 year old male, current 10 pack year smoker, with underlying severe asthma and GERD. He initially reported poor control of asthma with persistent dry cough, wheezing, dyspnea and chest tightness since October 2023. He has required multiple courses of steroids since then and was started on Xolair 375 mg Q2 weeks 08/04/24, after increasing maintenance inhalers with suboptimal effect. He has since been maintained on Trelegy, albuterol MDI and DuoNeb. After the first 2 doses patient noticed a significant improvement in respiratory symptoms however with subsequent visits has had less of response. At the last visit patient 09/25/24 he reported worsening dry cough, dyspnea and wheezing, possibly related to allergies. Prior RAST + multiple environmental allergens, IgE>2000. Patient also reported he had been without Trelegy for 1 week, self d/c Singulair for a few weeks and continues to smoke about 1/4-1/2 pack per day. Today he presents noting overall decrease in wheezing and cough wih initiation of Xolair however activity is limited due to dyspnea and continues with daily dry cough and wheezing, despite Trelegy, Singulair requiring albuterol MDI BID. Since the last visit, patient has had two courses of prednisone and has continued on prednisone 20 mg over the past week with pills from a prior prescription. He has quit smoking about two weeks ago and has switched jobs, previously with multiple exposures likely worsening asthma. [facility] Medical History (Updated 10/21/24 @ 10:36 by Marilyn Bergeron PA-C) Foot pain, left Nicotine addiction Depression with anxiety GERD (gastroesophageal reflux disease) Back muscle spasm Surgical History History of mandibular surgery Hx of tonsillectomy Family History Father Heart attack Mother Lung disease Maternal Grandmother Diabetes History of multiple strokes Social History (Updated 11/25/24 @ 11:01 by Betty Hahn [facility]) Housing: Condominium Alcohol intake: current Patient Tobacco Use Status: Former Tobacco user Cigarettes Per Day: 5 e-Cigarette/Vaping Use: Never Used Second Hand Smoke Exposure: No service: No Current occupational status: employed Current occupation: [employer] Current occupational exposures/hazards: Yes Cognitive needs: No Hearing needs: No Vision needs: No Review of Systems Const Denies chills, Denies excessive sweating, Denies fever(s), Denies headache(s) and Denies night sweats Eyes Denies dry eyes, Denies irritation and Denies itchy eyes ENT Reports Normal hearing present, Denies headache(s) and Denies nasal congestion Card Denies chest pain, Denies chest pain at rest, Denies chest pain with activity, Denies claudication, Denies leg edema, Reports dyspnea on exertion, Denies orthopnea and Denies paroxysmal nocturnal dyspnea Resp Denies change in phlegm color, Denies chest congestion, Reports cough, Denies hemoptysis, Denies excessive phlegm production, Denies pain on inspiration, Denies pain with cough, Reports dyspnea on exertion, Denies stridor and Reports wheezing Musc Denies myalgias Neuro Reports Normal hearing present and Denies headache(s) Endo Denies excessive sweating Tom/Lymph Denies lymphadenopathy Aller/Immun Denies itchy eyes, Denies seasonal rhinorrhea and Reports wheezing Physical Exam Vital Signs: Last Vital Signs Pulse 93 11/25/24 10:58 BP 116/78 11/25/24 10:58 Pulse Ox 98 11/25/24 10:58 Oxygen Delivery Method Room Air 11/25/24 10:58 BMI result Body Mass Index 29.2 Const General: cooperative, healthy appearing, no acute distress, well developed and alert Orientation/consciousness: patient oriented x3 Limitations: no limitations HEENT Head: Yes normal to inspection, Yes normocephalic and Yes atraumatic Ears: hearing grossly normal bilaterally and external ears normal Eyes General: appearance normal, both eyes and all related structures Eyelids: Yes eyelids normal Sclerae: sclerae normal EOM: EOMs intact bilaterally Neck Neck: Yes normal visual inspection and Yes no lymphadenopathy Lymphatic: no lymphadenopathy noted Chest Chest palpation & inspection: normal inspection of the chest Resp Effort & Inspection: normal respiratory effort, able to speak in complete sentences, no audible wheezes, Actively coughing (intermittent) Quality: dry, no stridor, not tachypneic, no tripod positioning and no use of accessory muscles Auscultation: no wheezes and diminished lung sounds Cardio Jugular venous distension: no JVD Rate: regular rate Rhythm: regular rhythm Skin Other: warm, dry General skin exam: no rashes or lesions noted Neuro General: patient oriented x3 Cranial nerves: Yes Normal hearing present Cognition (Neuro): normal cognition Gait exam (Neuro): Normal gait present Extrem General: Yes normal to inspection, Yes capillary refill normal, Yes no clubbing, cyanosis or edema and Yes no pedal edema Psych Appearance: grossly normal and well kempt Speech and movement: Normal speech and movement present and Clear speech present Affect: normal affect Attitude: cooperative Thought process: Normal thought process present Thought content: Normal thought content present Insight: Good insight present (Psych) Judgement: Good judgement present (Psych) Assessment & Plan Assessment & Plan (1) Asthma: Code(s): J45.909 - Unspecified asthma, uncomplicated Category: Medical (2) Cough: Code(s): R05.9 - Cough, unspecified Category: Medical (3) Environmental allergies: Code(s): Z91.09 - Other allergy status, other than to drugs and biological substances Category: Medical Plan Reviewed PFT which revealed no obstructive nor restrictive ventilatory defects identified. The patient does have a trend response to bronchodilators noted. Lung volumes with a trend of hyperinflation and a trend of air trapping likely secondary to small airways disease. The patient does have an elevated diffusing capacity likely secondary to exogenous exposure carbon monoxide which could be from smoking. At this time Nii reports suboptimal control on Xolair which he has been on for 3 months, required two course of OCS over the last two months. Given OCS use and previously significantly elevated eosinophils, discussed switching to Dupixent in place of Xolair which he was in agreement. Again discussed possibility of ABPA, will continue prednisone tapering 10 mg x 5 days followed by 5 mg x 5 days. He is aware to call if symptoms worsen. May need to consider antifungal, although recent CXR unremarkable. If sympoms persist will send for chest CT. Discussed importance of compliance with all respiratory medications, including Trelegy, Singulair, albuterol MDI and DuoNeb. Reviewed smoking cessation. Patient has quit smoking 2 weeks ago and is motivated to continue. He is aware to call if symptoms do not improve or seek emergent care if symptoms worsen. All questions were answered and patient is in agreement of plan. Will follow up in 4-6 weeks or sooner if needed. Medications: New prednisone see taper instructions 10 mg x 5 days, followed by 5 mg x 5 days 5 mg PO DIRECTED 15 tabs 0RF Coding Level of Care Code Est Pt Level 4 (33219) Complex EM visit Add On G2211 Diagnoses Asthma J45.909 Cough R05.9 Environmental allergies Z91.09
[2024-11-25 10:58] VITALS: BP 116/78; PULSE 93; O2SAT 98; BMI 29.2
--- OUTSIDE RECORDS SUMMARY | 2024-11-25 12:29 | XMS_ITS | Encounter Summary ---
Author Organization [facility] Address [address] [place] [address] Care Team Providers Care Salvage Winder Name Role Phone Unavailable Primary Care Provider Unavailabl e Reason for Referral * Gastroenterology (Routine) - Pending Review Specialty Diagnoses / Procedures Referred By Contac t Referred To Contact Gastroenterology Diagnoses Gastroesophageal reflux disease, unspecified whether esophagitis present Deanna Ferrell APRN [address] [place] [address] Phone: tel: fax: [address] [address] Phone: tel: fax: Referral ID Status Reason Start Date Expiration Date Visits Requested Visits Authorized [id number] Pending Review Consult 11/23/2024 11/24/2025 1 1 Question Answer Select Referral Type: Consult Encounter Details Date Type Department Care Team (Latest Contact Info) Description 11/23/2024 Transcribe Orders [address] [id number] Unknown Unknow Provider Address Gastroesophageal reflux disease, unspecified whether esophagitis present (Primary Dx) Social History Tobacco Use Types Packs/Day Years Used Date Smoking Tobacco: Never Assessed Sex and Gender Information Value Date Recorded Sex Assigned at Not on file Legal Sex Male 4:54 PM EDT Gender Identity Not on file Sexual Orientation Not on file documented as of this encounter Plan of Treatment Scheduled Referrals Name Type Priority Associated Diagnoses Order Schedule Amb Referral to Gastroenterology Outpatient Referral Routine Gastroesophageal reflux disease, unspecified whether esophagitis present Ordered: 11/23/2024 documented as of this encounter Visit Diagnoses Diagnosis Gastroesophageal reflux disease, unspecified whether esophagitis present- Primary documented in this encounter
--- OUTSIDE RECORDS SUMMARY | 2024-11-25 12:29 | XMS_ITS | Clinical Summary ---
Author Organization [place] [address] [address] [facility] Building Address [address] [place] [address] Phone Care Team Providers Care Curb And Gutter Laborer Name Role Phone Deep Hebert NP Primary Care Provider Allergies Active Allergy Reactions Criticality Noted Date Comments Grass Pollen 11/16/2024 Year round seasonal allergies Peanut 05/23/2023 Peas Hives 05/23/2023 Shellfish Containing Products 05/23/2023 Medications Ventolin HFA 90 mcg/actuation inhaler inhale 2 puffs every 6 hours as needed for shortness of breath or wheezing Active Trelegy Ellipta 200-62.5-25 mcg inhaler Inhale 1 puff (200 mcg total) by mouth 1 (one) time each day. 09/26/19 25 Active ipratropium-albute roL (DUONEB) 0.5-2.5 mg/3 mL nebulizer solution INHALE 1 VIAL (3 ML) BY MOUTH EVERY 6 TO 8 HOURS NEEDED FOR FOR WHEEZING 09/26/19 25 Active montelukast (SINGULAIR) 10 mg tablet Take 1 tablet (10 mg total) by mouth at bedtime. 09/26/19 25 Active nicotine polacrilex (NICORETTE) 2 mg gum CHEW AND PARK 1 PIECE EVERY 2 HOURS DIRECTED NEEDED 09/26/19 25 Active ibuprofen (ADVIL,MOTRIN) 600 mg tablet Take 1 tablet (600 mg total) by mouth every 6 (six) hours if needed (pain or fever) for up to 10 days. 40 each 11/17/19 25 025 Active guaiFENesin (MUCINEX) 600 mg 12 hr tablet Take 2 tablets (1,200 mg total) by mouth 2 (two) times a day. Do not crush, chew, or split. 120 each 11 11/19/19 25 026 Active ondansetron ODT (ZOFRAN-ODT) 4 mg disintegrating tablet Let 1 tablet dissolve under the tongue three times daily as needed for nausea or vomiting. 20 tablet 11/19/19 25 Active omeprazole (PriLOSEC) [address] capsule Take 1 capsule (20 mg total) by mouth 1 (one) time each day for 14 days. Do not crush or chew. 14 each 11/19/19 25 025 Active predniSONE (DELTASONE) 20 mg tablet Take 2 tablets (40 mg total) by mouth 1 (one) time each day for 5 days. Take with food in the morning 10 tablet 11/17/19 25 025 nirmatrelvir-riton avir (Paxlovid) 300 mg (150 mg x 2)-100 mg tablet therapy pack Take 3 tablets by mouth every 12 (twelve) hours for 5 days. Take number of ordered nirmatrelvir (300 mg = 2 tablets) and ritonavir (100 mg = 1 tablet) tablets at the same time. 30 tablet 11/17/19 25 025 Additional Information Patient not taking.Reported on 11/18/2024 Hospital, Clinic, or Other Facility Administered Medication Ordered Dose Route Frequency Start Date End Date Status ipratropium-albuteroL (DUONEB) 0.5-2.5 mg/3 mL nebulizer solution 3 mLIndications:COVID-19,SOB (shortness of breath) 3 mL nebu Once 11/18/2024 11/18/2024 End ed Encounters Date Type Department Care Team Description 11/18/2024 1:05 PM EDT - 11/18/2024 4:01 PM EDT Emergency [facility] Emergency [address] [place] [id number] COVID-19 (Primary Dx); Gastroesophageal reflux disease, unspecified whether esophagitis present Discharge Disposition: Home or Self Care 11/18/2024 10:39 AM EDT - 11/18/2024 11:59 PM EDT [address] [place] [phone] Discharge Disposition: Home or Self Care 11/18/2024 10:15 AM EDT Office [address] Walk[facility] [address] [place] [phone] Richie Ambrose NP COVID-19 (Primary Dx); SOB (shortness of breath) 11/16/2024 10:15 AM EDT Office Visit [facility] [address] [place] [phone] Ellis Cole PA COVID-19 (Primary Dx) from Last 3 Months Medical History Medical History Date Comments Seasonal allergies DX:Seasonal a llergies Asthma DX:Asthma Social History Tobacco Use Types Packs/Day Years Used Date Smoking Tobacco: Former Cigarettes Smokeless Tobacco: Never Tobacco Cessation:Counseling Given: Not Answered Sex and Gender Information Value Date Recorded Sex Assigned at Not on file Legal Sex Male 10:57 PM EST Gender Identity Not on file Sexual Orientation Not on file Obstetrics History Last Filed Vital Signs Vital Sign Reading Time Taken Comments Blood Pressure 134/87 11/18/2024 2:55 PM EDT Pulse 82 11/18/2024 2:55 PM EDT Temperature 36.8 C (98.2 F) 11/18/2024 1:01 PM EDT Respiratory Rate 19 11/18/2024 2:55 PM EDT Oxygen Saturation 99% 11/18/2024 2:55 PM EDT Inhaled Oxygen Concentration - - Weight 81.6 kg (180 lb) 11/26/2023 6:31 PM EDT Height 165.1 cm (5' 5 ) 11/26/2023 6:31 PM EDT Body Mass Index 29.95 11/26/2023 6:31 PM EDT Plan of Treatment Health Maintenance Due Date Last Done Comments DTaP,Tdap,and Td Vaccines (7 - Td or Tdap) 09/11/2009 09/12/1999, 01/05/1993, 04/01/1989, Additional history exists HPV Vaccines (1 - 3-dose SCDM series) 08/10/2014 Cholesterol Screening (Lipid Panel) 03/31/2023 Hepatitis C Screening 03/31/2023 Social Influencers of Health Screening 03/31/2023 Depression Screening 02/26/2024 COVID-19 Vaccine ( - season) 2024 Influenza Vaccine (#1) 2024 02/09/2003 RSV Immunization Adult Patients (1 - 1-dose 75+ series) 08/10/2062 HIB Vaccines Completed 04/01/1989 IPV Vaccines Completed 01/05/1993, 06/1989, 02/16/1988, Additional history exists MMR Vaccines Completed 03/12/1994, 11/21/1988 Hepatitis B Vaccines Completed 02/14/1999, 07/26/1998, 06/16/1998 HIV Screening Completed 11/18/2024 Hepatitis A Vaccines Aged Out No long er eligible based on patient's age to complete this topic Meningococcal ACWY Vaccine Aged Out N o longer eligible based on patient's age to complete this topic Meningococcal B Vaccine Aged Out No l onger eligible based on patient's age to complete this topic Pneumococcal Vaccine: Pediatrics (0 to 5 Years) and At-Risk Patients (6 to 49 Years) Aged Out No longer eligible based on patient's age to complete this topic RSV Immunization Patients Under 20 months Aged Out No longer eligible based on patient's age to complete this topic Varicella Vaccines Aged Out No longer eligible based on patient's age to complete this topic Procedures Procedure Name Priority Date/Time Associated Diagnosis Comments CBC WITH AUTO DIFFERENTIAL STAT 11/18/2024 1:29 PM EDT TROPONIN I HIGH SENSITIVITY STAT 11/18/2024 1:29 PM EDT BASIC METABOLIC PANEL STAT 11/18/2024 1:29 PM EDT CBC AND DIFFERENTIAL STAT 11/18/2024 1:29 PM EDT HIV 1, 2 ANTIBODY, P24 ANTIGEN WITH REFLEX TO DIFFERENTIATION STAT 11/18/2024 1:29 PM EDT ECG 12-LEAD Routine 11/18/2024 1:14 PM EDT XR CHEST 2 VIEWS STAT 11/18/2024 10:4 5 AM EDT COVID-19 SOB (shortness of breath) POC RAPID [id number], MOLECULAR Routine 11/16/2024 10:40 AM EDT COVID-19 from Last 3 Months Results * HIV 1,2 antibody, p24 antigen with reflex to differentiation (11/18/2024 1:29 PM EDT) [facility] HIV Combo AB/AG Negative Negative LAB CHEMISTRY METHOD 11/18/2024 11:54 PM EDT [facility] Blood Venous blood specimen / Unknown Venipuncture / Unknown 11/18/2024 1:29 PM EDT 11/18/2024 1:32 PM EDT [facility] - 11/18/2024 11:54 PM EDT Nonreactive result does not rule out HIV infection. us Luis Henley MD LAB BLOOD ORDERABLES Final Res ult [facility] [address] [place] [address], * Troponin I high sensitivity (11/18/2024 1:29 PM EDT) [facility] High Sensitivity Troponin I <2 0 - 20 ng/L LAB CHEMISTRY METHOD 11/18/2024 2:05 PM EDT [facility] Blood Venous blood specimen / Unknown Venipuncture / Unknown 11/18/2024 1:29 PM EDT 11/18/2024 1:32 PM EDT [facility] - 11/18/2024 2:05 PM EDT HSTnI results stratify to HIGH RISK category if any value >100 ng/L or delta at 1 hour is greater than or equal to 15 ng/L (male and female). Note: Delta values are not applicable if symptoms began more than 12 hours pre-arrival. Risk stratification should include the calculation of the HEART score. Testing performed using [employer] Access AccuTnI+[email or web address] Assay. Luis Henley MD LAB BLOOD ORDERABLES Final Res ult [facility] [place] #:[id number] [address] [place] [address], * (ABNORMAL) CBC auto differential (11/18/2024 1:29 PM EDT) [facility] WBC 13.2(H) 4.0 - 10.5 K/mcL LAB HEMETOLOGY METHOD 11/18/2024 1:35 PM EDT [facility] RBC 4.80 4.70 - 6.00 M/mcL LAB HEMETOLOGY METHOD 11/18/2024 1:35 PM EDT [facility] Hemoglobin 14.9 13.5 - 18.0 g/dL LAB HEMETOLOGY METHOD 11/18/2024 1:35 PM EDT [facility] Hematocrit 43.2 40.0 - 54.0 % LAB HEMETOLOGY METHOD 11/18/2024 1:35 PM EDT [facility] MCV 90.0 78.0 - 100.0 FL LAB HEMETOLOGY METHOD 11/18/2024 1:35 PM EDT [facility] MCH 31.0 25.0 - 33.0 pcg LAB HEMETOLOGY METHOD 11/18/2024 1:35 PM EDT [facility] MCHC 34.5 32.0 - 36.0 g/dL LAB HEMETOLOGY METHOD 11/18/2024 1:35 PM EDT [facility] RDW 12.5 12.1 - 17.7 % LAB HEMETOLOGY METHOD 11/18/2024 1:35 PM EDT [facility] Platelets 258 150 - 450 K/mcL LAB HEM[facility]OLOGY [facility] MPV 9.6 7.4 - 11.4 FL LAB HEMETOLOGY METHOD [facility]/18[facility]2024 [facility] Neutrophils Relative 66.5 44.0 - 74.0 % LAB HEMETOLOGY METHOD 11/18[facility]2024 [facility] Lymphocytes Relative 25.6 20.0 - 48.0 % LAB HEMETOLOGY METHOD 11/18[facility]2024 1[facility] Monocytes Relative 7.0 2.0 - 12.0 % LAB HEMETOLOGY METHOD 11/18[facility]2024 1[facility] Eosinophils Relative 0.3 0.0 - 6.0 % LAB HEMETOLOGY METHOD 11/18/2024 1[facility] Basophils Relative 0.2 0.0 - 2.0 % LAB HEMETOLOGY METHOD 11/18[facility]2024 1[facility] Neutrophils Absolute 8.80(H) 1.80 - 7.80 K/mcL LAB HEMETOLOGY METHOD 11/18[facility]2024 [facility] Lymphocytes Absolute 3.39(H) 1.00 - 3.20 K/mcL LAB HEMETOLOGY METHOD 11/18[facility]2024 1[facility] Monocytes Absolute 0.92(H) 0.00 - 0.80 K/mcL LAB HEMETOLOGY METHOD 11/18[facility]2024 1[facility] Eosinophils Absolute 0.04 0.00 - 0.50 K/mcL LAB HEMETOLOGY METHOD 11/18/2024 1:35 PM EDT [facility] Basophils Absolute 0.03 0.00 - 0.20 K/mcL LAB HEMETOLOGY METHOD 11/18/2024 1:35 PM EDT [facility] Blood Venous blood specimen / Unknown Venipuncture / Unknown 11/18/2024 1:29 PM EDT 11/18/2024 1:32 PM EDT us Luis Henley MD LAB BLOOD ORDERABLES Final Res ult [facility] [place] #:[id number] [address] [place] [address], [place] [phone] * (ABNORMAL) Basic metabolic panel (11/18/2024 1:29 PM EDT) Sodium 138 135 - 145 mmol/L LAB CHEMISTRY METHOD 11/18/2024 1:57 PM EDT [facility] Potassium 3.9 3.5 - 5.1 mmol/L LAB CHEMISTRY METHOD 11/18[facility]2024 [facility] Chloride 104 98 - 107 mmol/L LAB CHEMISTRY METHOD 11/18/2024 1:57 [facility] CO2 25 24 - 32 mmol/L LAB CHEMISTRY METHOD 11/18/2024 1:57 [facility] Anion Gap 9 5 - 14 LAB CHEMISTRY METHOD 11/18/2024 1:57 [facility] Glucose 90 70 - 199 mg/dL LAB CHEMISTRY METHOD 11/18/2024 1:57 [facility] BUN 18 9 - 20 mg/dL LAB CHEMISTRY METHOD 11/18[facility]2024 1[facility]57 [facility] Creatinine 0.89 0.70 - 1.30 mg/dL LAB CHEMISTRY METHOD 11/18/2024 1:57 PM EDT [facility] eGFR 113 >=60 mL/min/1. 73m2 LAB CHEMISTRY METHOD 11/18/2024 1:57 PM EDT [facility] Comment:Calculation based on the Chronic Kidney Disease Epidemiology Collaboration (CKD-EPI) equation refit without adjustment for race. BUN/Creatinine Ratio 20.2(H) 12.0 - 20.0 LAB CHEMISTRY METHOD 11/18/2024 1:57 PM EDT [facility] Calcium 9.6 8.4 - 10.2 mg/dL LAB CHEMISTRY METHOD 11/18/2024 1:57 PM EDT [facility] Blood Venous blood specimen / Unknown Venipuncture / Unknown 11/18/2024 1:29 PM EDT 11/18/2024 1:32 PM EDT us Luis Henley MD LAB BLOOD ORDERABLES Final Res ult [facility] [place] #:[id number] [address] [place] [address], * ECG 12 lead (11/18/2024 1:14 PM EDT) Ventricular Rate ECG 89 BPM GEMUSE Atrial Rate 89 BPM GEMUSE P-R Interval 128 ms GEMUSE QRS Duration 90 ms GEMUSE Q-T Interval 340 ms GEMUSE QTc 413 ms GEMUSE P Wave [place] 74 degrees GEMUSE R [place] -11 degrees GEMUSE T [place] 22 degrees GEMUSE ECG Interpretation Normal sinus rhythm Normal ECG When compared with ECG of 26-NOV-2023 18:53, No significant change was found Confirmed by Eric Rod ([id number]) on 11/20/2024 1:22:22 PM GEMUSE 11/18/2024 1:14 PM EDT 11/20/2024 1:22 PM EDT us Luis Henley MD ECG ORDERABLES Final Result GEMUSE * XR Chest 2 Views (11/18/2024 10:45 AM EDT) Anatomical Region Laterality Modality Body Radiographic Zandra ging 11/18/2024 11:0 5 AM EDT Narrative 11/18/2024 11:05 AM EDT Chest, 2 views. History Covid infection. Wheezing. Shortness of breath. No prior chest radiographs are available for comparison. There is no pneumothorax, pleural effusions or focal consolidations. Cardiomediastinal silhouette is unremarkable. CONCLUSIONS: Unremarkable chest radiographs. -------- FINAL REPORT -------- Dictated By: Shelley Funk Dictated Date: 11/18/2024 11:05 ET Assigned Physician: Shelley Funk Reviewed and Electronically Signed By: Shelley Funk Signed Date: 11/18/2024 11:05 ET Workstation ID: [id number] Transcribed By: Self Edit Transcribed Date: 11/18/2024 11:05 ET Procedure Note Shelley Funk MD - 11/18/2024 Chest, 2 views. History Covid infection. Wheezing. Shortness of breath. No prior chest radiographs are available for comparison. There is no pneumothorax, pleural effusions or focal consolidations.Cardiomediastinal silhouette is unremarkable. CONCLUSIONS: Unremarkable chest radiographs. -------- FINAL REPORT -------- Dictated By: Shelley Funk Dictated Date: 11/18/2024 11:05 ET Assigned Physician: Shelley Funk Reviewed and Electronically Signed By: Shelley Funk Signed Date: 11/18/2024 11:05 ET Workstation ID: [id number] Transcribed By: Self Edit Transcribed Date: 11/18/2024 11:05 ET us Richie Ambrose COURTESY DRIVER IMG XR PROCEDURES Final Resul t * (ABNORMAL) Poc Rapid [id number], MOLECULAR (11/16/2024 10:40 AM EDT) COVID-19/SARS- COV-2 Rapid POC Positive(A ) Negative Swab Nasopharyngeal structure / Unknown 11/16/2024 10:40 AM EDT Ellis LORENZ POINT OF CARE TEST ENTER/E DIT ORDERABLES Final Result from Last 3 Months Additional Health Concerns Infection Onset Date Last Indicated COVID-19 11/16/2024 11/16/2024 Insurance [facility] Care Teams Curb And Gutter Laborer Relationship Specialty Start Date End Date Deep Hebert NP [address] [employer], [place] PCP - General 05/23/23
--- OUTSIDE RECORDS SUMMARY | 2024-11-25 12:29 | XMS_ITS | Clinical Summary ---
Author Organization [facility] Address [address] [place] [address] Care Team Providers Care Transit Clerk Name Role Phone Deep Hebert Primary Care Provider [phone] Allergies Active Allergy Reactions Criticality Noted Date [...] age to complete this topic Care Teams Transit Clerk Relationship Specialty Start Date End Date Deep Hebert [address] [place] [address] PCP - General Family Medicine 05/23/23
--- OUTSIDE RECORDS SUMMARY | 2024-11-25 12:29 | XMS_ITS | Clinical Summary ---
Author Organization [facility] Address [address] [place] [address] Care Team Providers Care Director Of Field Sales Name Role Phone Unavailable Primary Care Provider Unavailabl e Encounters Date Type Department Care Team Description 11/23/2024 Transcribe Orders [facility] [address] [facility] [address] [place] [address] Unknown Gastroesophageal reflux disease, unspecified whether esophagitis present (Primary Dx) from Last 3 Months Social History Tobacco Use Types Packs/Day Years Used Date Smoking Tobacco: Never Assessed Sex and Gender Information Value Date Recorded Sex Assigned at Not on file Legal Sex Male 4:54 PM EDT Gender Identity Not on file Sexual Orientation Not on file Plan of Treatment Health Maintenance Due Date Last Done Comments Hepatitis C Virus Screening 1987 HIV Screening 08/10/2000 DTaP/Tdap/Td Vaccines (1 - Tdap) 08/10/2006 Hepatitis B Vaccines (1 of 3 - 19+ 3-dose series) 08/10/2006 COVID-19 Vaccine ( - 2023-2 5 season) 2024 HPV Vaccines (No Doses Required) Completed Pneumococcal Vaccine: Pediat geno (0-5 Years) and At-Risk Patients (6 to 49 Years) Aged Out No longer eligible b ased on patient's age to complete this topic
== END 2024-11-25 11:29 | disposition home or self-care (01) ==
LOC: HO.HPSW 10:56
PROVIDERS: PCP Nurse Practitioner Family; Visit Provider Nurse Practitioner Family
DX: J45.909 Unspecified asthma, uncomplicated (principal); R05.9 Cough, unspecified; Z91.09 Other allergy status, other than to drugs and biological substances
CPT/HCPCS: 99214

== ENCOUNTER → 2024-11-25 10:55 | Outpatient (BNVA) | payer OTHER, SELFPAY | PROVIDERS: PCP Nurse Practitioner Family; Visit Provider Nurse Practitioner Family | DX: J45.50 Severe persistent asthma, uncomplicated (principal); R05.9 Cough, unspecified; Z91.09 Other allergy status, other than to drugs and biological substances | CPT/HCPCS: 99212 ==

== ENCOUNTER 2024-12-24 10:10 | Outpatient (AMB) | payer OTHER, SELFPAY ==
--- NOTE | 2024-12-24 10:13 | A.OFFPC_ITS ---
Vital Signs 12/24/24 10:15 Height 5 ft 5.5 in Weight 176 lb BMI 28.8 BP 134/94 H Blood Pressure Location Lt brachial Respiration 16 Pulse 78 Pulse Source Pulse Oximeter Temp 97.9 F Temp Source Oral Intake Visit Reasons: PE High Reach Operator Required: No Allergies Peanut Butter Allergy (Severe, Verified 12/24/24 10:18) Swelling shellfish derived Allergy (Severe, Verified 12/24/24 10:18) unknown peas Adverse Reaction (Uncoded 11/25/24 11:01) Anaphylaxis Medication List - Last Reconciled 12/24/24 by Deep Hebert, MUD GRINDER- albuterol sulfate 90 mcg/actuation (Ventolin HFA) 2 puffs inhalation Q6H PRN cetirizine-pseudoephedrine 5-120 mg ER (Allergy Relief-D (cetirizine)) 1 tab PO BID 14 days cyclobenzaprine 5 mg PO tid PRN 7 days milmjmojoyk-udzovrrfx-fhfajqxq 200-62.5-25 mcg (Trelegy Ellipta) 1 ea inhalation DAILY ibuprofen mg PO ipratropium-albuterol 0.5 mg-3 mg(2.5 mg base)/3 mL 3 mL inhalation Q6-8H PRN montelukast (Singulair) 10 mg PO BEDTIME nebulizer accessories As directed nebulizers q6 hrs prn nicotine 1 patch transdermal DAILY nicotine (polacrilex) 2 mg buccal Q2H nirmatrelvir-ritonavir 300 mg (150 mg x 2)-100 mg (Paxlovid) ea PO omeprazole 20 mg PO DAILY ondansetron mg PO prednisone 5 mg PO DIRECTED prednisone 40 mg PO QAM Tobacco use date assessed: 12/24/24 Dental Screening Dental Screen Date: 12/24/24 Did you have a dental visit in the last 12 months?: No Did you have a dental problem in the last 6 months where you did not have access to dental care?: No Was dental information given to patient?: Patient declined HPI PE HPI Details History of Present Illness The patient is a 39-year-old male presenting for a physical exam. He has a history of asthma, which has been improving, and he is also reducing his smoking. He has a history of hypertension. Health Maintenance - Tobacco cessation: Patient is slowing down smoking. Social History - Tobacco Use: The patient is currently slowing down his smoking habit. Review of Systems - Cardiovascular: Denies chest pain. - Respiratory: Denies increased shortnes s of breath. - Eyes: Denies blurred vision. - Gastrointestinal: Denies abdominal kristina n, blood in stool, constipation, and diarrhea. - Psychiatric: Denies suicidal or homici anthony ideation. Physical Exam General: Cooperative, healthy appearing, comfortable, no acute distress and well developed Orientation: Patient oriented x3 Limitations: No limitations Head: Normal to inspection Ears: Hearing grossly normal bilaterally Nose: Normal external nose present Face and sinus: Normal facial exam Eyes: Appearance normal, both eyes and all related structures Neck: Normal visual inspection and Yes full ROM Respiratory: Normal respiratory effort and able to speak in complete sentences. Clear to auscultation bilaterally Cardiovascular: Regular rate and rhythm. Normal S1 and S2 GI: Normal to inspection. Soft to palpation and nontender : testicles without masses/lesions and no hernias appreciated Skin: No rashes or lesions noted Neuro: Patient oriented x3 Extremities: Normal to inspection Results Plan 1. Hypertension The patient will be started on low-dose losartan. He will have labs drawn and will be instructed to monitor his blood pressure at home. He is to send his blo od pressure values, and the medication will be adjusted accordingly. 2. Asthma The patient's asthma is noted to be improving. Continue current management. 3. Tobacco Use The patient reports he is slowing down his smoking. Encourage continued reduction and eventual cessation. Discussion Notes I am initiating treatment for the patient's hypertension with low-dose losartan. I have ordered labs and instructed him to monitor his blood pressure at home, sending me the values so I can make adjustments to his medication as needed in the near future. Patient Instructions - Begin taking the low-dose losartan med ication as prescribed for your high blood pressure. - Please get your blood work done at the lab. - Check your blood pressure at home and send me the results. - Based on your home blood pressure read ings, we will adjust your medication if needed. [facility] Medical History Foot pain, left Nicotine addiction Depression with anxiety GERD (gastroesophageal reflux disease) Back muscle spasm Surgical History History of mandibular surgery Hx of tonsillectomy Family History Father Heart attack Mother Lung disease Maternal Grandmother Diabetes History of multiple strokes [facility] Alcohol intake: current Patient Tobacco Use Status: Current everyday Tobacco user Cigarettes Per Day: 5 e-Cigarette/Vaping Use: Never Used Second Hand Smoke Exposure: No service: No Current occupational status: employed Current occupation: [employer] Current occupational exposures/hazards: Yes Cognitive needs: No Hearing needs: No Vision needs: No Questionnaire PHQ-9 Over the last 2 weeks, how often have you been bothered by any of the following problems? 1. Little interest or pleasure in doing things: not at all 2. Feeling down, depressed, or hopeless: not at all 3. Trouble falling or staying asleep, or sleeping too much: not at all 4. Feeling tired or having little energy: not at all 5. Poor appetite or overeating: not at all 6. Feeling bad about yourself - or that you are a failure or have let yourself or your family down: not at all 7. Trouble concentrating on things, such as reading the newspaper or watching television: not at all 8. Moving or speaking so slowly that other people could have noticed. Or the opposite - being so fidgety or restless that you have been moving around a lot more than usual: not at all 9. Thoughts that you would be better off or of hurting yourself in some way: not at all Total score: 0 Depression Screening Interpretation: Negative Depression Screening Done: Yes 80200 - PHQ-9 Billing: Yes Source: Developed by Drs. Matt Cook, Pema Rowe, Rory Fierro and colleagues, with an educational yvette from [employer]. Thrive Questionnaire Date Thrive assessed: 12/04/23 I am a: Patient What is your living situation today?: I have a steady place to live Within the past 12 months, did the food you bought not last and you didn't have the money to get more?: Sometimes True Within the past 12 months, did you worry whether your food would run out before you got money to buy more?: Never true Do you have trouble paying for medicines?: No Do you have trouble getting transportation to medical appointments?: No Do you have trouble paying your heating and electricity bill?: No Do you have trouble taking care of your child, family member or friend?: No Do you have trouble with day-to-day activities such as bathing, preparing meals, shopping, managing finances, etc.?: No Are you currently unemployed and looking for a job?: No Are you interested in more education?: No Please select the resources that you would like help with: None Currently or been in a relationship where the following occur: No concerns reported THRIVE Score: 1 AUDIT C Alcohol Use Questionnaire (AUDIT-C) 1. How often do you have a drink containing alcohol?: Never Total Score: 0 MEGAN-7 AMB Questionnaire MEGAN-7 Date MEGAN - 7 assessed: 12/24/24 Feeling nervous, anxious, or on edge: 0 = Not at all Not being able to stop or control worryin = Not at all Worrying too much about different things: 0 = Not at all Trouble relaxin = Not at all Being so restless that it is hard to sit still: 0 = Not at all Becoming easily annoyed or irritable: 0 = Not at all Feeling afraid as if something awful might happen: 0 = Not at all Total MEGAN-7 score (0-4 normal; 5-9 mild; 10-14 moderate; 15-21 severe): 0 Source: Developed by Drs. Matt Cook, Pema Rowe, Rory Fierro and colleagues, with an educational yvette from [employer]. Physical exam (Primary Care) Vital Signs: Last Vital Signs Temp 97.9 F 12/24/24 10:15 Pulse 78 12/24/24 10:15 Resp 16 12/24/24 10:15 BP 134/94 H 12/24/24 10:15 BMI result Body Mass Index 28.8 Tobacco/Smoking Status: Tobacco use Status Tobacco use date assessed 12/24/24 12/24/24 10:21 Patient Tobacco Use Status Current everyday Tobacco 12/24/24 10:21 e-Cigarette/Vaping Use Never Used 12/24/24 10:15 PHQ-9: PHQ-9 Score PHQ-9: Total score 0 12/24/24 10:24 Depression Screening Interpretation: Negative Thrive Assessment: Date of Thrive Assessment Date Thrive assessed 12/04/23 12/24/24 10:15 Currently or been in a relationship where the following occur: No concerns reported Coding Level of Care Code Est Pt Level 3 (70608) Est Pt Prev Care 18-39y(42727) Diagnoses Physical exam Z00.00 Additional Codes PHQ-9 - 23838 - PHQ-9 Billing: Yes ([id number]) Assessment & Plan Assessment & Plan (1) Physical exam: Code(s): Z00.00 - Encounter for general adult medical examination without abnormal findings Category: Medical Plan . Orders: Orders Complete Blood Count Auto Diff Today Z00.00 - Encounter for general adult medical examination without abnormal findings Comprehensive [place]. Panel Fast Today Z00.00 - Encounter for general adult medical examination without abnormal findings TSH reflex Free T4 Today Z00.00 - Encounter for general adult medical examination without abnormal findings UA CC w/rflx Micro + Cult Today Z00.00 - Encounter for general adult medical examination without abnormal findings Lipid Panel Today Z00.00 - Encounter for general adult medical examination without abnormal findings Medications: New losartan 25 mg PO DAILY 30 tabs 3RF 30 days
[2024-12-24 10:15] VITALS: BP 134/94; PULSE 78; RESP 16; TEMP 36.6; BMI 28.8
--- OUTSIDE RECORDS SUMMARY | 2024-12-24 12:19 | XMS_ITS | Clinical Summary ---
Author Organization [place] [address] [address] [facility] Building Address [address] [place] [address] Phone Care Team Providers Care Pharmacy Informatics Specialist Name Role Phone Deep Hebert NP Primary [...] by mouth 1 (one) time each day. 5 Active ipratropium-albute roL (DUONEB) 0.5-2.5 mg/3 mL nebulizer solution INHALE 1 VIAL (3 ML) BY MOUTH EVERY 6 TO 8 HOURS NEEDED FOR FOR WHEEZING 5 Active montelukast (SINGULAIR) 10 mg tablet Take 1 tablet (10 mg total) by mouth at bedtime. 5 Active nicotine polacrilex (NICORETTE) 2 mg gum CHEW AND PARK 1 PIECE EVERY 2 HOURS DIRECTED NEEDED 5 Active guaiFENesin (MUCINEX) 600 mg 12 hr tablet Take 2 tablets (1,200 mg total) by mouth 2 (two) times a day. Do not crush, chew, or split. 120 each 11 5 026 Active ondansetron ODT (ZOFRAN-ODT) 4 mg disintegrating tablet Let 1 tablet dissolve under the tongue three times daily as needed for nausea or vomiting. 20 tablet 5 Active ibuprofen (ADVIL,MOTRIN) 600 mg tablet Take 1 tablet (600 mg total) by mouth every 6 (six) hours if needed (pain or fever) for up to 10 days. 40 each 5 025 omeprazole (PriLOSEC) [address] capsule Take 1 capsule (20 mg total) by mouth 1 (one) time each day for 14 days. Do not crush or chew. 14 each 5 025 Encounters Date Type Department Care Team Description 11/18/2024 1:05 PM EDT - 11/18/2024 4:[address] [facility] Emergency [address] [place] [address] COVID-19 (Primary Dx); Gastroesophageal reflux disease, unspecified whether esophagitis present Discharge Disposition: Home or Self Care 11/18/2024 10:39 AM EDT - 11/18/2024 11:59 PM EDT Hospital Encounter Xray - [facility] [address] [place] [address] Discharge Disposition: Home or Self Care 11/18/2024 10:15 AM EDT Office Visit Walk-In Clinic - [address] [phone] Richie Ambrose NP COVID-19 (Primary Dx); SOB (shortness of breath) 11/16/2024 10:15 AM EDT Office Visit Walk-In Clinic - [address] [phone] Ellis Cole PA COVID-19 (Primary Dx) from [...] 03/31/2023 Depression Screening 02/26/2024 COVID-19 Vaccine ( season) 2024 Influenza Vaccine (#1) 2024 02/09/2003 [...] COVID-19 SOB (shortness of breath) POC RAPID [id number], MOLECULAR Routine 11/16/2024 10:40 AM EDT COVID-19 from Last 3 Months Results * HIV 1,2 antibody, p24 antigen with reflex to differentiation (11/18/2024 1:29 PM EDT) HIV Combo AB/AG Negative Negative LAB CHEMISTRY METHOD 11/18/2024 11:54 PM EDT [facility] Blood Venous blood specimen / Unknown Venipuncture / Unknown 11/18/2024 1:29 PM EDT 11/18/2024 1:32 PM EDT Narrative [facility] - 11/18/2024 11:54 PM EDT Nonreactive result does not rule out HIV infection. Luis Henley MD LAB BLOOD ORDERABLES Final Res ult [facility] [address] [place] [address], [place] [phone] * Troponin I high sensitivity (11/18/2024 1:29 PM EDT) [facility] High Sensitivity Troponin I <2 0 - 20 ng/L LAB CHEMISTRY METHOD 11/18/2024 2:05 PM EDT [facility] Blood Venous blood specimen / Unknown Venipuncture / Unknown 11/18/2024 1:29 PM EDT 11/18/2024 1:32 PM EDT Narrative [facility] - 11/18/2024 2:05 PM EDT HSTnI results stratify to HIGH RISK category if any value >100 ng/L or delta at 1 hour is greater than or equal to 15 ng/L (male and female). Note: Delta values are not applicable if symptoms began more than 12 hours pre-arrival. Risk stratification should include the calculation of the HEART score. Testing performed using [employer] Access AccuTnI+3 Assay. Luis Henley MD LAB BLOOD ORDERABLES Final Res ult Performing Organization Address City/[facility]/ZIP Co de Phone Number [facility] [place] Reg. #:[id number] [address] [place] [address], [place] [phone] * (ABNORMAL) CBC auto differential (11/18/2024 1:29 PM EDT) [facility] WBC 13.2(H) 4.0 - 10.5 K/[facility] LAB HEMETOLOGY METHOD 11/18/2024 1:35 PM EDT [facility] RBC 4.80 4.70 - 6.00 M/[facility] LAB HEM[facility]OLOGY [facility] Hemoglobin 14.9 13.5 - 18.0 g/dL LAB HEMETOLOGY METHOD [facility]/18[facility]2024 [facility] Hematocrit 43.2 40.0 - 54.0 % LAB HEMETOLOGY METHOD 11/18/2024 1:[facility] MCV 90.0 78.0 - 100.0 [place] LAB HEMETOLOGY METHOD 11/18[facility]2024 1:[facility] MCH 31.0 25.0 - 33.0 pcg LAB HEMETOLOGY METHOD 11/18/2024 1:[facility] MCHC 34.5 32.0 - 36.0 g/dL LAB HEMETOLOGY METHOD 11/18/2024 1:[facility] RDW 12.5 12.1 - 17.7 % LAB HEMETOLOGY METHOD 11/18/2024 1:[address] [facility] Platelets 258 150 - 450 K/mcL LAB HEMETOLOGY METHOD 11/18[facility]2024 1[facility] MPV 9.6 7.4 - 11.4 [place] LAB HEMETOLOGY METHOD 11/18/2024 1:[address] [facility] Neutrophils Relative 66.5 44.0 - 74.0 % LAB HEMETOLOGY METHOD 11/18[facility]2024 1[facility] Lymphocytes Relative 25.6 20.0 - 48.0 % LAB HEMETOLOGY METHOD 11/18/2024 1:[address] [facility] Monocytes Relative 7.0 2.0 - 12.0 % LAB HEMETOLOGY METHOD 11/18/2024 [facility] Eosinophils Relative 0.3 0.0 - 6.0 % LAB HEMETOLOGY METHOD 11/18/2024 1:35 PM EDT [facility] Basophils Relative 0.2 0.0 - 2.0 % LAB HEMETOLOGY METHOD 11/18/2024 1:35 PM EDT [facility] Neutrophils Absolute 8.80(H) 1.80 - 7.80 K/mcL LAB HEMETOLOGY METHOD 11/18/2024 1:35 PM EDT [facility] Lymphocytes Absolute 3.39(H) 1.00 - 3.20 K/mcL LAB HEMETOLOGY METHOD 11/18/2024 1:35 PM EDT [facility] Monocytes Absolute 0.92(H) 0.00 - 0.80 K/mcL LAB HEMETOLOGY METHOD 11/18/2024 1:35 PM EDT [facility] Eosinophils Absolute 0.04 0.00 - 0.50 K/mcL LAB HEMETOLOGY METHOD 11/18/2024 1:35 PM EDT [facility] Basophils Absolute 0.03 0.00 - 0.20 K/mcL LAB HEMETOLOGY METHOD 11/18/2024 1:35 PM EDT [facility] Blood Venous blood specimen / Unknown Venipuncture / Unknown 11/18/2024 1:29 PM EDT 11/18/2024 1:32 PM EDT us Luis Henley MD LAB BLOOD ORDERABLES Final Res ult [facility] [place] Reg. #:[id number] [address] [place] [address], [place] [phone] * (ABNORMAL) Basic metabolic panel (11/18/2024 1:29 PM EDT) Sodium 138 135 - 145 mmol/L LAB CHEMISTRY METHOD 11/18/2024 1:[address] [facility] Potassium 3.9 3.5 - 5.1 mmol/L LAB CHEMISTRY METHOD 11/18/2024 1:[address] [facility] Chloride 104 98 - 107 mmol/L LAB CHEMISTRY METHOD 11/18/2024 1:[address] [facility] CO2 25 24 - 32 mmol/L LAB CHEMISTRY METHOD 11/18/2024 1:[address] [facility] Anion Gap 9 5 - 14 LAB CHEMISTRY METHOD 11/18/2024 1:[address] [facility] Glucose 90 70 - 199 mg/dL LAB CHEMISTRY METHOD 11/18/2024 1:[address] [facility] BUN 18 9 - 20 mg/dL LAB CHEMISTRY METHOD 11/18/2024 1:[address] [facility] Creatinine 0.89 0.70 - 1.30 mg/dL LAB CHEMISTRY METHOD 11/18/2024 1:[address] [facility] eGFR 113 >=60 mL/min/1. 73m2 LAB CHEMISTRY METHOD 11/18/2024 1:[address] [facility] Comment:Calculation based on the Chronic Kidney Disease Epidemiology Collaboration (CKD-EPI) equation refit without adjustment for race. BUN/Creatinine Ratio 20.2(H) 12.0 - 20.0 LAB CHEMISTRY METHOD 11/18/2024 1:[address] [facility] Calcium 9.6 8.4 - 10.2 mg/dL LAB CHEMISTRY METHOD 11/18/2024 1:[address] [facility] Blood Venous blood specimen / Unknown Venipuncture / Unknown 11/18/2024 1:29 PM EDT 11/18/2024 1:32 PM EDT Luis Henley MD LAB BLOOD ORDERABLES Final Res ult [facility] [place] Reg. #:[id number] [address] [place] [address], [place] [phone] * ECG 12 lead (11/18/2024 1:14 PM EDT) Ventricular Rate ECG 89 BPM GEMUSE Atrial Rate 89 BPM GEMUSE P-R Interval 128 ms GEMUSE QRS Duration 90 ms GEMUSE Q-T Interval 340 ms GEMUSE QTc 413 ms GEMUSE P Wave [place] 74 degrees GEMUSE R [place] -11 degrees GEMUSE T [place] 22 degrees GEMUSE ECG Interpretation Normal sinus rhythm Normal ECG When compared with ECG of 26-NOV-2023 18:53, No significant change was found Confirmed by Eric Rod ([id number]) on 11/20/2024 1:22:22 PM GEMUSE 11/18/2024 1:14 PM EDT 11/20/2024 1:22 PM EDT Luis Henley MD ECG ORDERABLES Final Result Performing Organization Address [facility] Co de Phone Number GEMUSE * XR Chest 2 Views (11/18/2024 [...] Signed Date: 11/18/2024 11:05 ET Workstation ID: [id number] Transcribed By: Self Edit Transcribed Date: 11/18/2024 [...] Signed Date: 11/18/2024 11:05 ET Workstation ID: [id number] Transcribed By: Self Edit Transcribed Date: 11/18/2024 11:05 ET Richie Ambrose SCRAP KETTLE TENDER IMG XR PROCEDURES Final Resul t * (ABNORMAL) Poc Rapid [id number], MOLECULAR (11/16/2024 10:40 AM EDT) COVID-19/SARS- COV-2 Rapid POC Positive(A ) Negative Swab Nasopharyngeal structure / Unknown 11/16/2024 10:40 AM EDT Ellis LORENZ POINT OF CARE TEST ENTER/E DIT ORDERABLES Final Result from Last 3 Months Insurance [facility] [employer] Care Teams Pharmacy Informatics Specialist Relationship Specialty Start Date End Date Deep Hebert NP [address] [facility] [place] PCP - General 05/23/23
--- OUTSIDE RECORDS SUMMARY | 2024-12-24 12:19 | XMS_ITS | Clinical Summary ---
Author Organization [facility] Address [address] [place] [address] Care Team Providers Care Coating Machine Feeder Name Role Phone Unavailable Primary Care Provider Unavailabl e Encounters Date Type Department Care Team Description 12/07/[address] [facility] [address] [phone] ProviderRoyce MD 11/23/[address] [facility] [address] [phone] Unknown Gastroesophageal reflux disease, unspecified whether [...] - 19+ 3-dose series) 08/10/2006 COVID-19 Vaccine (2023-2 5 season) 2024 HPV Vaccines (No Doses Required) Completed Pneumococcal Vaccine: Pediat geno (0-5 Years) and At-Risk Patients (6 to 49 Years) Aged Out No longer eligible b ased on patient's age to complete this topic
--- OUTSIDE RECORDS SUMMARY | 2024-12-24 12:19 | XMS_ITS | Clinical Summary ---
Author Organization [facility] Address [address] [place] [address] Care Team Providers Care Slice Cutting Machine Operator Name Role Phone Deep Hebert Primary Care Provider [phone] Allergies Active Allergy Reactions Criticality Noted Date [...] age to complete this topic Care Teams Slice Cutting Machine Operator Relationship Specialty Start Date End Date Deep Hebert [address] [place] [address] PCP - General Family Medicine 05/23/23
== END 2024-12-24 10:45 | disposition home or self-care (01) ==
LOC: HO.HMCC 10:10
PROVIDERS: PCP Nurse Practitioner Family; Visit Provider Nurse Practitioner Family
DX: Z00.00 Encounter for general adult medical examination without abnormal findings (principal); I10 Essential (primary) hypertension

== ENCOUNTER → 2024-12-24 10:10 | Outpatient (BNVA) | payer OTHER, SELFPAY | PROVIDERS: PCP Nurse Practitioner Family; Visit Provider Nurse Practitioner Family | DX: Z00.00 Encounter for general adult medical examination without abnormal findings (principal); J45.909 Unspecified asthma, uncomplicated; I10 Essential (primary) hypertension; F17.210 Nicotine dependence, cigarettes, uncomplicated | CPT/HCPCS: 96127; 99212; 99395 ==

== ENCOUNTER 2025-01-12 09:45 | Outpatient (RCR) | payer OTHER, SELFPAY ==
[2024-07-21 13:07] VITALS: BP 122/80; PULSE 88; RESP 16; TEMP 36.6; O2SAT 98
[2024-08-04 10:53] VITALS: BP 138/90; PULSE 93; RESP 16; TEMP 35.7; O2SAT 99
[2024-08-18 10:11] VITALS: BP 127/84; PULSE 105; RESP 18; TEMP 37; O2SAT 97
[2024-09-01 10:40] VITALS: BP 116/74; PULSE 79; RESP 16; TEMP 36.7; O2SAT 97
[2024-09-15 11:06] VITALS: BP 134/90; PULSE 82; RESP 18; TEMP 36.6; O2SAT 98
[2024-09-29 12:01] VITALS: BP 126/95; PULSE 90; RESP 16; TEMP 36.6; O2SAT 98
[2024-10-14 15:21] VITALS: BP 139/93; PULSE 100; RESP 16; TEMP 36.7; O2SAT 98
[2024-10-28 12:53] VITALS: BP 124/78; PULSE 78; RESP 16; TEMP 36.6; O2SAT 98
[2024-11-19 12:21] VITALS: BP 125/85; PULSE 99; RESP 16; TEMP 36.7; O2SAT 98
[2024-12-03 09:39] VITALS: BP 132/83; PULSE 76; RESP 16; TEMP 36.7; O2SAT 96
[2024-12-29 12:03] VITALS: BP 144/92; PULSE 100; RESP 16; TEMP 36.7; O2SAT 99
[2025-01-12 10:11] VITALS: BP 127/79; PULSE 86; RESP 16; TEMP 36.6; O2SAT 98
== END 2025-01-26 08:06 | disposition home or self-care (01) ==
LOC: HO.INF 09:45
PROVIDERS: Visit Provider Nurse Practitioner Family
DX: J45.909 Unspecified asthma, uncomplicated (principal)
CPT/HCPCS: 96372; J2357

== ENCOUNTER 2025-01-20 15:29 | Outpatient (AMB) | payer OTHER, SELFPAY ==
--- OUTSIDE RECORDS SUMMARY | 2025-01-20 14:15 | XMS_ITS | Encounter Summary ---
Author Organization [facility] Address [address] [place] [address] Care Team Providers Care Hand Cultivator Name Role Phone Deep Hebert NP Primary Care Provider [phone] Reason for Visit * Reason Comments URI X [address], ear kristina n bilateral, Light headed, NOLAN, cough slight, BA Encounter Details Date Type Department Care Team (Late st Contact Info) Description 01/20/2025 2:15 PM EST Office Visit Walk[facility] Clinic - [facility] [address] [place], [place] [phone] Ellis Cole PA [address] [place] [address] Viral upper respiratory infection (Primary Dx) Social History Tobacco Use Types Packs/Day Years Used Date Smoking Tobacco: Former Cigarettes Smokeless Tobacco: Never Tobacco Cessation:Counseling Given: Not Answered Sex and Gender Information Value Date Recorded Sex Assigned at Not on file Legal Sex Male 10:57 PM EST Gender Identity Not on file Sexual Orientation Not on file documented as of this encounter Last Filed Vital Signs Vital Sign Reading Time Taken Comments Blood Pressure 102/60 01/20/2025 2:14 PM EST Pulse 80 01/20/2025 2:14 PM EST Temperature 36.1 C (97 F) 01/20/2025 2:14 PM EST Respiratory Rate - - Oxygen Saturation 97% 01/20/2025 2:14 PM EST Inhaled Oxygen Concentration - - Weight - - Height - - Body Mass Index - - documented in this encounter Plan of Treatment Not on file documented as of this encounter Procedures Procedure Name Priority Date/Time Associated Diagnosis Comments POC RAPID [id number], MOLECULAR Routine 01/20/2025 3:26 PM EST Viral upper respiratory infection POC RAPID STREP A Routine 01/20/2025 3:2 6 PM EST Viral upper respiratory infection documented in this encounter Results * POC rapid strep A manually resulted (01/20/2025 3:26 PM EST) Pathologist [facility] Rapid Strep A Screen POC Negative Negative Swab Structure of anterior region of neck / Unknown 01/20/2025 3:26 PM EST Ellis LORENZ POINT OF CARE TEST ENTER/E DIT ORDERABLES Final Result * Poc Rapid [id number], MOLECULAR (01/20/2025 3:26 PM EST) Pathologist [facility] COVID-19/SARS- COV-2 Rapid POC Negative Negative Swab Nasopharyngeal structure / Unknown 01/20/2025 3:26 PM EST us Ellis LORENZ POINT OF CARE TEST ENTER/E DIT ORDERABLES Final Result documented in this encounter Visit Diagnoses Diagnosis Viral upper respiratory infection- Primary Acute upper respiratory infections of unspecified site documented in this encounter Care Teams Hand Cultivator Relationship Specialty Start Date End Date Deep Hebert NP [address] [facility] [place] PCP - General 05/23/23 documented as of this encounter
[2025-01-20 15:37] VITALS: BP 106/72; PULSE 88; O2SAT 98; BMI 29.1
--- NOTE | 2025-01-20 15:37 | A.OFFVIS_ITS ---
Vital Signs 01/20/25 15:37 Height 5 ft 5.5 in Weight 177 lb 6 oz BMI 29.1 BP 106/72 Blood Pressure Location Rt brachial Position Sitting Pulse 88 Pulse Source Pulse Oximeter Pulse Oximetry (%) 98 Oxygen Delivery Method Room Air Intake Visit Reasons: Asthma Allergies Peanut Butter Allergy (Severe, Verified 01/20/25 15:40) Swelling shellfish derived Allergy (Severe, Verified 01/20/25 15:40) unknown peas Adverse Reaction (Uncoded 01/20/25 15:40) Anaphylaxis HPI HPI Asthma: Details: Nii is a pleasant 39 year old male, current 10 pack year smoker, with underlying severe asthma and GERD. Patient reported poor control of asthma since October 2023, requiring multiple courses of steroids despite maintenance therapy with Trelegy and Singulair. Xolair was initiated with significant improvements with the 1st few doses however with subsequent injections he has had less of a response. At the last visit an order was placed to switch from Xolair to Dupixent given significant eosinophilic contribution however patient has yet to start. Reviewed chart and our office as attempted to reach out to patient to initiate Dupixent however unable to reach patient, he notes recent change in telephone number. Since last visit patient continues to report daily dyspnea, dry cough and occasional wheezing however significantly improved from initial onset of symptoms. He continues to smoke cigarettes although can go a few days without smoking any and he has also changes jobs with less triggering exposures. [facility] Medical History Foot pain, left Nicotine addiction Depression with anxiety GERD (gastroesophageal reflux disease) Back muscle spasm Surgical History History of mandibular surgery Hx of tonsillectomy Family History Father Heart attack Mother Lung disease Maternal Grandmother Diabetes History of multiple strokes Social History Housing: Condominium Alcohol intake: current Patient Tobacco Use Status: Current everyday Tobacco user Cigarettes Per Day: 5 e-Cigarette/Vaping Use: Never Used Second Hand Smoke Exposure: No service: No Current occupational status: employed Current occupation: [employer] Current occupational exposures/hazards: Yes Cognitive needs: No Hearing needs: No Vision needs: No Review of Systems Const Denies chills, Denies excessive sweating, Denies fever(s), Denies headache(s) and Denies night sweats Eyes Denies dry eyes, Denies irritation and Denies itchy eyes ENT Reports Normal hearing present, Denies headache(s) and Denies nasal congestion Card Denies chest pain, Denies chest pain at rest, Denies chest pain with activity, Denies claudication, Denies leg edema, Reports dyspnea on exertion, Denies orthopnea and Denies paroxysmal nocturnal dyspnea Resp Denies change in phlegm color, Denies chest congestion, Reports cough, Denies hemoptysis, Denies excessive phlegm production, Denies pain on inspiration, Denies pain with cough, Reports dyspnea on exertion, Denies stridor and Reports wheezing Musc Denies myalgias Neuro Reports Normal hearing present and Denies headache(s) Endo Denies excessive sweating Tom/Lymph Denies lymphadenopathy Aller/Immun Denies itchy eyes, Denies seasonal rhinorrhea and Reports wheezing Physical Exam Vital Signs: BMI result Body Mass Index 29.1 Const General: cooperative, healthy appearing, no acute distress, well developed and alert Orientation/consciousness: patient oriented x3 Limitations: no limitations HEENT Head: Yes normal to inspection, Yes normocephalic and Yes atraumatic Ears: hearing grossly normal bilaterally and external ears normal Eyes General: appearance normal, both eyes and all related structures Eyelids: Yes eyelids normal Sclerae: sclerae normal EOM: EOMs intact bilaterally Neck Neck: Yes normal visual inspection and Yes no lymphadenopathy Lymphatic: no lymphadenopathy noted Chest Chest palpation & inspection: normal inspection of the chest Resp Effort & Inspection: normal respiratory effort, able to speak in complete sentences, no audible wheezes, no stridor, not tachypneic, no tripod positioning and no use of accessory muscles Auscultation: clear to auscultation bilaterally and no wheezes Cardio Jugular venous distension: no JVD Rate: regular rate Rhythm: regular rhythm Skin Other: warm, dry General skin exam: no rashes or lesions noted Neuro General: patient oriented x3 Cranial nerves: Yes Normal hearing present Cognition (Neuro): normal cognition Gait exam (Neuro): Normal gait present Extrem General: Yes normal to inspection, Yes capillary refill normal, Yes no clubbing, cyanosis or edema and Yes no pedal edema Psych Appearance: grossly normal and well kempt Speech and movement: Normal speech and movement present and Clear speech present Affect: normal affect Attitude: cooperative Thought process: Normal thought process present Thought content: Normal thought content present Insight: Good insight present (Psych) Judgement: Good judgement present (Psych) Assessment & Plan Assessment & Plan (1) Asthma: Code(s): J45.909 - Unspecified asthma, uncomplicated Category: Medical (2) Cough: Code(s): R05.9 - Cough, unspecified Category: Medical (3) Environmental allergies: Code(s): Z91.09 - Other allergy status, other than to drugs and biological substances Category: Medical Plan Discussed importance of compliance with all respiratory medications, including Trelegy, Singulair, albuterol MDI and DuoNeb. He has been without Singulair, will refill. Will notify nurse arranging Dupixent of change in telephone number to initiate Dupixent. Reviewed smoking cessation. He is aware to call if symptoms do not improve or seek emergent care if symptoms worsen. All questions were answered and patient is in agreement of plan. Will follow up in 3 months or sooner if needed. Medications: Refilled montelukast (Singulair) 10 mg PO BEDTIME 30 tabs 3RF nbuqucthgpk-objhamhse-qhhimygp 200-62.5-25 mcg (Trelegy Ellipta) 1 ea inhalation DAILY 60 ea 3RF ipratropium-albuterol 0.5 mg-3 mg(2.5 mg base)/3 mL 3 mL inhalation Q6-8H PRN 90 mL 3RF for wheezing Coding Level of Care Code Est Pt Level 4 (99660) Diagnoses Asthma J45.909 Cough R05.9 Environmental allergies Z91.09
--- OUTSIDE RECORDS SUMMARY | 2025-01-20 17:46 | XMS_ITS | Clinical Summary ---
Author Organization [facility] Address [address] [place] [address] Care Team Providers Care Checkout Supervisor Name Role Phone Deep Hebert Primary Care Provider [phone] Allergies Active Allergy Reactions Criticality Noted Date [...] age to complete this topic Care Teams Checkout Supervisor Relationship Specialty Start Date End Date Deep Hebert [address] [place] [address] PCP - General Family Medicine 05/23/23
--- OUTSIDE RECORDS SUMMARY | 2025-01-20 17:46 | XMS_ITS | Clinical Summary ---
Author Organization [place] [address] [facility] Address [address] [place] [address] Phone Care Team Providers Care Sinker Puller Name Role Phone Deep Hebert NP Primary [...] crush, chew, or split. 120 each 11 09/2411/19/19 Active ondansetron ODT (ZOFRAN-ODT) 4 mg disintegrating tablet Let 1 tablet dissolve under the tongue three times daily as needed for nausea or vomiting. 20 tablet Active Encounters Date Type Department Care Team Description 01/20/2025 2:15 PM EST Office Visit Walk-In [facility] - [address] [phone] Ellis Cole PA Viral upper respiratory infection (Primary Dx) 11/18/2024 1:05 PM EDT - 11/18/2024 4:01 PM EDT Emergency [facility] Emergency [address] [place] [address] COVID-19 (Primary Dx); Gastroesophageal reflux disease, unspecified whether esophagitis present Discharge Disposition: Home or Self Care 11/18/2024 10:39 AM EDT - 11/18/2024 11:59 PM EDT Hospital Encounter Xray - [address] [phone] Discharge Disposition: Home or Self Care 11/18/2024 10:15 AM EDT Office Visit Walk-In [address] [phone] Richie Ambrose NP COVID-19 (Primary Dx); SOB (shortness of breath) 11/16/2024 10:15 AM EDT Office Visit Walk-In [address] [phone] Ellis Cole PA COVID-19 (Primary Dx) from [...] F) 01/20/2025 2:14 PM EST Respiratory Rate 19 11/18/2024 2:55 PM EDT Oxygen Saturation 97% 01/20/2025 2:14 PM EST Inhaled Oxygen Concentration - - Weight 81.6 [...] Priority Date/Time Associated Diagnosis Comments POC RAPID STREP A Routine 01/20/2025 3:2 6 PM EST Viral upper respiratory infection POC RAPID MEKE-[id number], MOLECULAR Routine 01/20/2025 3:26 PM EST Viral upper respiratory infection CBC WITH AUTO DIFFERENTIAL STAT 11/18/2024 1:29 [...] COVID-19 SOB (shortness of breath) POC RAPID [id number]-[id number], MOLECULAR Routine 11/16/2024 10:40 AM EDT COVID-19 from Last 3 Months Results * Poc Rapid [id number], MOLECULAR (01/20/2025 3:26 PM EST) Only the most recent of2 resultswithin the time period is included. COVID-19/SARS- COV-2 Rapid POC Negative Negative Swab Nasopharyngeal structure / Unknown 01/20/2025 3:26 PM EST Ellis LORENZ POINT OF CARE TEST ENTER/E DIT ORDERABLES Final Result * POC rapid strep A manually resulted (01/20/2025 3:26 PM EST) [facility] Rapid Strep A Screen POC Negative Negative Swab Structure of anterior region of neck / Unknown 01/20/2025 3:26 PM EST Ellis LORENZ POINT OF CARE TEST ENTER/E DIT ORDERABLES Final Result * HIV 1,2 antibody, p24 antigen with reflex to differentiation (11/18/2024 1:29 PM EDT) [facility] HIV Combo AB/AG Negative Negative LAB CHEMISTRY METHOD 11/18/2024 11:54 PM EDT [facility] Blood Venous blood specimen / Unknown Venipuncture / Unknown 11/18/2024 1:29 PM EDT 11/18/2024 1:32 PM EDT [facility] - 11/18/2024 11:54 PM EDT Nonreactive result does not rule out HIV infection. us Luis Henley MD LAB BLOOD ORDERABLES Final Res ult [facility] [address] [place] [address], * Troponin I high sensitivity (11/18/2024 1:29 PM EDT) [facility] High Sensitivity Troponin I <2 0 - 20 ng/L LAB CHEMISTRY METHOD 11/18/2024 2:05 PM EDT [facility] Blood Venous blood specimen / Unknown Venipuncture / Unknown 11/18/2024 1:29 PM EDT 11/18/2024 1:32 PM EDT [facility] - 11/18/2024 2:05 PM EDT HSTnI results stratify to HIGH RISK category if any value >100 ng/L or delta at 1 hour is greater than or equal to 15 ng/L (male and female). Note: Delta values are not applicable if symptoms began more than 12 hours pre-arrival. Risk stratification should include the calculation of the HEART score. Testing performed using [employer] Access AccuTnI+3 Assay. Luis Henley MD LAB BLOOD ORDERABLES Final Res ult [facility] [place]. #:[id number] [address] [place] [address], * (ABNORMAL) CBC auto differential (11/18/2024 1:29 PM EDT) [facility] WBC 13.2(H) 4.0 - 10.5 K/mcL LAB HEMETOLOGY METHOD 11/18/2024 1:35 PM EDT [facility] RBC 4.80 4.70 - 6.00 M/mcL LAB HEMETOLOGY METHOD 11/18/2024 1:35 PM EDT [facility] Hemoglobin 14.9 13.5 - 18.0 g/dL LAB HEMETOLOGY METHOD 11/18/2024 1:35 PM EDT [facility] Hematocrit 43.2 40.0 - 54.0 % LAB HEMETOLOGY METHOD 11/18/2024 1:35 PM EDT [facility] MCV 90.0 78.0 - 100.0 FL LAB HEMETOLOGY METHOD 11/18/2024 1:35 PM EDT [facility] MCH 31.0 25.0 - 33.0 pcg LAB HEMETOLOGY METHOD 11/18/2024 1:35 PM EDT [facility] MCHC 34.5 32.0 - 36.0 g/dL LAB HEMETOLOGY METHOD 11/18/2024 1:35 PM EDT [facility] RDW 12.5 12.1 - 17.7 % LAB HEMETOLOGY METHOD 11/18/2024 1:35 PM EDT [facility] Platelets 258 150 - 450 K/mcL LAB [facility]OLOGY [facility] MPV 9.6 7.4 - 11.4 FL LAB HEMETOLOGY METHOD [facility]/18[facility]2024 [facility] Neutrophils Relative 66.5 44.0 - 74.0 % LAB HEMETOLOGY METHOD 11/18[facility]2024 [facility] Lymphocytes Relative 25.6 20.0 - 48.0 % LAB HEMETOLOGY METHOD 11/18[facility]2024 [facility] Monocytes Relative 7.0 2.0 - 12.0 % LAB HEMETOLOGY METHOD 11/18[facility]2024 [facility] Eosinophils Relative 0.3 0.0 - 6.0 % LAB HEMETOLOGY METHOD 11/18/2024 1:[facility] Basophils Relative 0.2 0.0 - 2.0 % LAB HEMETOLOGY METHOD 11/18/2024 1:[facility] Neutrophils Absolute 8.80(H) 1.80 - 7.80 K/mcL LAB HEMETOLOGY METHOD 11/18[facility]2024 1:[facility] Lymphocytes Absolute 3.39(H) 1.00 - 3.20 K/mcL LAB HEMETOLOGY METHOD 11/18/2024 1:[facility] Monocytes Absolute 0.92(H) 0.00 - 0.80 K/mcL LAB HEMETOLOGY METHOD 11/18/2024 1:[facility] Eosinophils Absolute 0.04 0.00 - 0.50 K/mcL LAB HEMETOLOGY METHOD 11/18/2024 1:35 PM EDT [facility] Basophils Absolute 0.03 0.00 - 0.20 K/mcL LAB HEMETOLOGY METHOD 11/18/2024 1:35 PM EDT [facility] Blood Venous blood specimen / Unknown Venipuncture / Unknown 11/18/2024 1:29 PM EDT 11/18/2024 1:32 PM EDT us Luis Henley MD LAB BLOOD ORDERABLES Final Res ult [facility] [place] #:[id number] [address] [place] [address], [place] [phone] * (ABNORMAL) Basic metabolic panel (11/18/2024 1:29 PM EDT) Sodium 138 135 - 145 mmol/L LAB CHEMISTRY METHOD 11/18/2024 1:57 PM EDT [facility] Potassium 3.9 3.5 - 5.1 mmol/L LAB CHEMISTRY METHOD 11/18[facility]2024 1[facility] Chloride 104 98 - 107 mmol/L LAB CHEMISTRY METHOD 11/18/2024 1:[facility] CO2 25 24 - 32 mmol/L LAB CHEMISTRY METHOD 11/18/2024 1:57 [facility] Anion Gap 9 5 - 14 LAB CHEMISTRY METHOD 11/18/2024 1:57 [facility] Glucose 90 70 - 199 mg/dL LAB CHEMISTRY METHOD 11/18/2024 1:57 [facility] BUN 18 9 - 20 mg/dL LAB CHEMISTRY METHOD 11/18/2024 1:57 [facility] Creatinine 0.89 0.70 - 1.30 mg/dL LAB CHEMISTRY METHOD 11/18/2024 1:57 PM EDT [facility] eGFR 113 >=60 mL/min/1. 73m2 LAB CHEMISTRY METHOD 11/18/2024 1:57 PM EDT [facility] Comment:Calculation based on the Chronic Kidney Disease Epidemiology Collaboration (CKD-EPI) equation refit without adjustment for race. BUN/Creatinine Ratio 20.2(H) 12.0 - 20.0 LAB CHEMISTRY METHOD 11/18/2024 1:57 PM EDT [facility] Calcium 9.6 8.4 - 10.2 mg/dL LAB CHEMISTRY METHOD 11/18/2024 1:57 PM EDT [facility] Blood Venous blood specimen / Unknown Venipuncture / Unknown 11/18/2024 1:29 PM EDT 11/18/2024 1:32 PM EDT us Luis Henley MD LAB BLOOD ORDERABLES Final Res ult [facility] [place] #:[id number] [address] [place] [address], * ECG 12 lead (11/18/2024 1:14 PM EDT) Ventricular Rate ECG 89 BPM GEMUSE Atrial Rate 89 BPM GEMUSE P-R Interval 128 ms GEMUSE QRS Duration 90 ms GEMUSE Q-T Interval 340 ms GEMUSE QTc 413 ms GEMUSE P Wave [place] 74 degrees GEMUSE R [place] -11 degrees GEMUSE T [place] 22 degrees GEMUSE ECG Interpretation Normal sinus [...] Signed Date: 11/18/2024 11:05 ET Workstation ID: [id number] Transcribed By: Self Edit Transcribed Date: 11/18/2024 [...] Signed Date: 11/18/2024 11:05 ET Workstation ID: [id number] Transcribed By: Self Edit Transcribed Date: 11/18/2024 11:05 ET us Richie Ambrose [facility] IMG XR PROCEDURES Final Resul t from Last 3 Months Insurance [facility] Care Teams Sinker Puller Relationship Specialty Start Date End Date Deep Hebert NP [address] [facility] [place] PCP - General 05/23/23
== END 2025-01-20 15:54 | disposition home or self-care (01) ==
LOC: HO.HPSW 15:30
PROVIDERS: PCP Nurse Practitioner Family; Visit Provider Nurse Practitioner Family
DX: J45.909 Unspecified asthma, uncomplicated (principal); R05.9 Cough, unspecified; Z91.09 Other allergy status, other than to drugs and biological substances
CPT/HCPCS: 99214

== ENCOUNTER → 2025-01-20 15:29 | Outpatient (BNVA) | payer OTHER, SELFPAY | PROVIDERS: PCP Nurse Practitioner Family; Visit Provider Nurse Practitioner Family | DX: J45.909 Unspecified asthma, uncomplicated (principal); Z91.09 Other allergy status, other than to drugs and biological substances; F17.210 Nicotine dependence, cigarettes, uncomplicated; Z79.899 Other long term (current) drug therapy | CPT/HCPCS: 99212 ==